=== PATIENT | female | born 1985 ===

== ENCOUNTER 2020-06-12 15:14 | Outpatient (REF) | payer OTHER, SELFPAY ==
[2020-06-12 15:56] LABS: COVID-19 Test Negative (Negative)
== END 2020-06-12 15:15 | disposition home or self-care (01) ==
LOC: HO.LAB 15:14
PROVIDERS: Visit Provider Internal Medicine
DX: Z20.828 Contact with and (suspected) exposure to other viral communicable diseases (principal)
CPT/HCPCS: 87635

== ENCOUNTER 2020-07-17 08:21 | Outpatient (REF) | payer OTHER, SELFPAY ==
[2020-07-17 08:46] LABS: COVID-19 Test Negative (Negative)
== END 2020-07-17 08:22 | disposition home or self-care (01) ==
LOC: HO.LAB 08:21
PROVIDERS: Visit Provider Internal Medicine
DX: Z20.828 Contact with and (suspected) exposure to other viral communicable diseases (principal)
CPT/HCPCS: 87635; C9803

== ENCOUNTER 2020-07-29 08:25 | Outpatient (REF) | payer OTHER, SELFPAY ==
[2020-07-29 08:39] LABS: COVID-19 Test Positive (Negative); IDNOW Serial# 55D5AD1C
== END 2020-07-29 08:26 | disposition home or self-care (01) ==
LOC: HO.EMPCOV 08:25
PROVIDERS: Visit Provider Internal Medicine
DX: Z20.828 Contact with and (suspected) exposure to other viral communicable diseases (principal)
CPT/HCPCS: 87635; C9803

== ENCOUNTER 2020-10-11 09:41 | Outpatient (REF) | payer OTHER, SELFPAY ==
[2020-10-11 11:06] LABS: MANUAL DIFF FLAG NO
[2020-10-11 11:10] LABS: Basophils Percent Auto 0.7 % (0-2); Eosinophils Absolute Auto 0.1 X10*3/uL (0.0-0.4); Eosinophils Percent Auto 1.4 % (0-4); Hematocrit 32.8 % (37-47); Hemoglobin 9.8 g/dl (12.0-16.0); Imm Gran Abs Auto 0.04 X10*3/uL (0.00-0.03); Imm Gran Pct Auto 0.7 % (0.0-0.4); Lymphocytes Absolute Auto 1.3 X10*3/uL (1.2-4.9); Lymphocytes Percent Auto 22.9 % (20-40); Mean Corpuscular HGB Conc 29.9 g/dl (31.0-35.0); Mean Corpuscular Hemoglobin 19.8 pg (27.0-33.0); Mean Corpuscular Volume 66.1 fL (80-98); Mean Platelet Volume 10.7 fL (9.4-12.3); Monocytes Absolute Auto 0.4 X10*3/uL (0.1-1.2); Monocytes Percent Auto 7.7 % (2-11); Neutrophils Absolute Auto 3.8 X10*3/uL (2.0-8.3); Neutrophils Percent Auto 66.6 % (45-73); Platelet Count 326 X10*3/uL (160-400); Red Blood Count 4.96 X10*6/uL (4.20-5.50); Red Cell Distribution Width 17.7 % (11.0-16.0); White Blood Count 5.7 X10*3/uL (4.8-10.8)
[2020-10-11 11:43] LABS: Alanine Aminotransferase 8 U/L (0-31); Albumin Level 4.1 g/dL (3.5-5.0); Alkaline Phosphatase 73 U/L (39-117); Anion Gap 11 (12-20); Aspartate Amino Transferase 10 U/L (5-31); Bilirubin Total 0.7 mg/dL (0.0-1.0); Blood Urea Nitrogen 8 mg/dL (9-16); Calcium 8.5 mg/dL (8.4-10.2); Carbon Dioxide 23 mmol/L (22-29); Chloride 107 mmol/L (96-108); Cholesterol 141 mg/dL; Estimated Glomerular Filt Rate > 60; Glucose Fasting 84 mg/dL (60-99); HDL Cholesterol 41 mg/dL; Iron 23 mcg/dL (30-160); LDL Cholesterol Calculated 85 mg/dl; Percent Iron Saturation 5 % (15-50); Potassium 4.3 mmol/L (3.3-5.1); Rheumatoid Factor < 15.0 IU/mL (<15.0); Sodium 137 mmol/L (135-145); Total Iron Binding Capacity 460 mcg/dL (228-428); Total Protein 7.3 g/dL (6.5-8.0); Triglycerides 76 mg/dL; Unsaturated Iron Binding 437 ug/dL
[2020-10-11 12:04] LABS: Erythrocyte Sedimentation Rate 19 MM/HR (0-20)
[2020-10-11 12:32] LABS: Folate 9.9 ng/mL (> or = 4.0); Vitamin B12 199 pg/mL (200-900)
[2020-10-14 12:56] LABS: Anti Nuclear Antibody Screen NEGATIVE (NEGATIVE)
[2020-10-15 12:42] LABS: Cyclic Citrullinated Peptide 24 UNITS
[2020-10-16 13:47] LABS: Vitamin D 25-OH, D2 <4 ng/mL; Vitamin D 25-OH, D3 7 ng/mL; Vitamin D 25-OH, Total 7 ng/mL (30-100)
[2020-10-16 15:46] LABS: HLA B27 Negative (Negative)
== END 2020-10-11 09:42 | disposition home or self-care (01) ==
LOC: HO.LAB 09:41
PROVIDERS: PCP Internal Medicine; Visit Provider Internal Medicine
DX: D50.0 Iron deficiency anemia secondary to blood loss (chronic) (principal); M54.9 Dorsalgia, unspecified; G89.29 Other chronic pain; E55.9 Vitamin D deficiency, unspecified; E78.5 Hyperlipidemia, unspecified
CPT/HCPCS: 36415; 80053; 80061; 82306; 82607; 82746; 83540; 85025; 85652; 86038; 86039; 86200; 86431; 86812

== ENCOUNTER 2020-10-16 09:22 | Outpatient (REF) | payer OTHER, SELFPAY ==
[2020-10-16 09:31] LABS: Glucose Urine UA NEG (NEG); Leukocyte Esterase Urine 2+ (NEG); Nitrite Urine NEG (NEG); Specific Gravity - Urine 1.025 (1.005-1.025); UACC Culture Trigger YES; Urine Blood 3+ (NEG); Urine Ketones NEG (NEG); Urine Protein 1+ MG/DL (NEG-TRACE)
[2020-10-16 09:33] LABS: Appearance Urine CLOUDY; Color Urine YELLOW
[2020-10-16 09:45] LABS: Bacteria Urine 1+ /LPF; Mucus Urine 2+ /LPF; RBC Urine TNTC /HPF (0); WBC Urine TNTC /HPF (0-4)
== END 2020-10-16 09:23 | disposition home or self-care (01) ==
LOC: HO.LNP 09:22
PROVIDERS: Visit Provider Internal Medicine
DX: R30.0 Dysuria (principal)
CPT/HCPCS: 81001; 81003; 87086

== ENCOUNTER 2020-11-26 09:25 | Outpatient (REF) | payer OTHER, SELFPAY ==
[2020-11-26 10:17] LABS: COVID-19 Test Negative (Negative); IDNOW Serial# 55D5AD1C
== END 2020-11-26 09:26 | disposition home or self-care (01) ==
LOC: HO.EMPCOV 09:25
PROVIDERS: Visit Provider Internal Medicine
DX: Z20.822 Contact with and (suspected) exposure to COVID-19 (principal)
CPT/HCPCS: 36415; 87635; C9803

== ENCOUNTER → 2021-03-07 14:51 | Outpatient (BNVA) | payer OTHER, SELFPAY | PROVIDERS: PCP Internal Medicine; Referring Provider Internal Medicine; Visit Provider Physician Assistant | DX: Z11.0 Encounter for screening for intestinal infectious diseases (principal); E66.9 Obesity, unspecified; Z68.41 Body mass index [BMI] 40.0-44.9, adult | CPT/HCPCS: 99202; 99211 ==

== ENCOUNTER 2021-03-07 16:00 | Outpatient (REF) | payer OTHER, SELFPAY ==
[2021-03-11 13:26] LABS: H Pylori Breath Test DETECTED (NOT DETECTED)
== END 2021-03-07 16:01 | disposition home or self-care (01) ==
LOC: HO.LNP 16:00
PROVIDERS: Visit Provider Physician Assistant
DX: E66.9 Obesity, unspecified (principal)
CPT/HCPCS: 83013

== ENCOUNTER 2021-03-14 10:33 | Outpatient (REF) | payer OTHER, SELFPAY ==
--- NOTE | ~2021-03-14 | XR_ITS ---
EXAMINATION: XR CHEST CLINICAL INFORMATION: Bariatric service evaluation. E66.9 COMPARISON: Chest radiographs 10/08/2019 TECHNIQUE: 2 views of the chest were obtained. FINDINGS: The lungs are clear. The vascularity is normal. The heart is normal in size. There is no airspace consolidation or effusion. The costophrenic sulci are clear. The hilar and mediastinal contours are normal. There are degenerative changes again noted mid thoracic spine with vertebral spurring. XR/XR chest 2V IMPRESSION: Lungs clear.
--- NOTE | 2021-03-14 10:50 | ECG_ITS ---
Test Reason : E66.9 Blood Pressure : / mmHG Vent. Rate : 076 BPM Atrial Rate : 076 BPM P-R Int : 122 ms QRS Dur : 074 ms QT Int : 406 ms P-R-T Axes : 000 -28 -29 degrees QTc Int : 456 ms Normal sinus rhythm Normal ECG When compared with ECG of 08-OCT-2019 15:54, No significant change was found Referred By: Taylor Montano Electronically Signed By:Kyle Elias
[2021-03-14 11:22] LABS: MANUAL DIFF FLAG NO
[2021-03-14 11:25] LABS: Basophils Percent Auto 0.7 % (0-2); Eosinophils Absolute Auto 0.1 X10*3/uL (0.0-0.4); Hematocrit 35.9 % (37-47); Hemoglobin 10.9 g/dl (12.0-16.0); Imm Gran Abs Auto 0.01 X10*3/uL (0.00-0.03); Imm Gran Pct Auto 0.2 % (0.0-0.4); Lymphocytes Absolute Auto 1.4 X10*3/uL (1.2-4.9); Lymphocytes Percent Auto 35.2 % (20-40); Mean Corpuscular HGB Conc 30.4 g/dl (31.0-35.0); Mean Corpuscular Hemoglobin 20.7 pg (27.0-33.0); Mean Corpuscular Volume 68.1 fL (80-98); Mean Platelet Volume 10.9 fL (9.4-12.3); Monocytes Absolute Auto 0.3 X10*3/uL (0.1-1.2); Monocytes Percent Auto 8.5 % (2-11); Neutrophils Absolute Auto 2.1 X10*3/uL (2.0-8.3); Neutrophils Percent Auto 53.4 % (45-73); Platelet Count 324 X10*3/uL (160-400); Red Blood Count 5.27 X10*6/uL (4.20-5.50); Red Cell Distribution Width 17.3 % (11.0-16.0)
[2021-03-14 11:27] LABS: Glucose Urine UA NEG (NEG); Leukocyte Esterase Urine NEG (NEG); Nitrite Urine NEG (NEG); Specific Gravity - Urine 1.025 (1.005-1.025); Urine Blood NEG (NEG); Urine Ketones 15 MG/DL (NEG); Urine Protein NEG (NEG-TRACE)
[2021-03-14 11:32] LABS: Appearance Urine HAZY; Color Urine YELLOW
[2021-03-14 11:39] LABS: Estimated Average Glucose 94 mg/dL; Hemoglobin A1c % 4.9 %
[2021-03-14 11:55] LABS: Alanine Aminotransferase 15 U/L (0-31); Albumin Level 4.2 g/dL (3.5-5.0); Alkaline Phosphatase 68 U/L (39-117); Anion Gap 13 (12-20); Aspartate Amino Transferase 16 U/L (5-31); Bilirubin Total 0.5 mg/dL (0.0-1.0); Blood Urea Nitrogen 15 mg/dL (9-16); C Reactive Protein 0.77 mg/dL (< or = 0.50); Carbon Dioxide 23 mmol/L (22-29); Chloride 108 mmol/L (96-108); Cholesterol 154 mg/dL; Estimated Glomerular Filt Rate > 60; Glucose Random 85 mg/dL (60-115); HDL Cholesterol 41 mg/dL; Iron 16 mcg/dL (30-160); LDL Cholesterol Calculated 100 mg/dl; Sodium 140 mmol/L (135-145); Total Protein 7.3 g/dL (6.5-8.0); Triglycerides 66 mg/dL
[2021-03-14 11:56] LABS: Percent Iron Saturation 3 % (15-50); Total Iron Binding Capacity 460 mcg/dL (228-428); Unsaturated Iron Binding 444 ug/dL
[2021-03-14 12:14] LABS: Ferritin 7 ng/mL (10-122); Vitamin D 25-OH Total 23.1 ng/mL (>30)
[2021-03-14 12:55] LABS: Folate 17.3 ng/mL (> or = 4.0); Vitamin B12 409 pg/mL (200-900)
[2021-03-17 11:36] LABS: Calcium (PTHI) 9.1 mg/dL (8.6-10.2); PTHI 49 pg/mL (14-64)
[2021-03-17 13:26] LABS: Insulin Level Total 13.8 uIU/mL
[2021-03-17 16:47] LABS: Zinc 68 mcg/dL (60-130)
[2021-03-18 19:51] LABS: Vitamin A 26 mcg/dL (38-98)
[2021-03-21 12:46] LABS: Vitamin B1 <6 nmol/L (8-30)
== END 2021-03-14 10:34 | disposition home or self-care (01) ==
LOC: HO.XRAY 10:33
PROVIDERS: PCP Internal Medicine; Visit Provider Physician Assistant
DX: E66.9 Obesity, unspecified (principal); R30.0 Dysuria
CPT/HCPCS: 36415; 71046; 80053; 80061; 81003; 82306; 82607; 82728; 82746; 83036; 83525; 83540; 83970; 84425; 84443; 84590; 84630; 85025; 86140; 93005

== ENCOUNTER → 2021-03-19 08:15 | Outpatient (BNVA) | payer OTHER, SELFPAY | PROVIDERS: PCP Internal Medicine; Visit Provider Dietitian, Registered | DX: E66.01 Morbid (severe) obesity due to excess calories (principal); Z68.41 Body mass index [BMI] 40.0-44.9, adult | CPT/HCPCS: 97802 ==

== ENCOUNTER 2021-04-16 07:58 | Outpatient (REF) | payer OTHER, SELFPAY ==
--- NOTE | ~2021-04-16 | US_ITS ---
EXAMINATION: US COMPLETE ABDOMEN WITH LIVER ELASTOGRAPHY CLINICAL INFORMATION: Obesity. COMPARISON: None. TECHNIQUE: Real-time imaging of the abdominal viscera. Noninvasive ultrasound liver fibrosis assessment is performed using Jerrica ElastPQ point quantification shear wave elastography (pSWE) with a C5-2 MHz transducer. Multiple elastography samples are obtained. FINDINGS: PANCREAS: The visualized pancreatic head and body are normal in appearance. The remainder of the pancreas is obscured from visualization by the overlying bowel gas. ABDOMINAL AORTA: The proximal, middle, and distal aortic segments are normal in caliber. INFERIOR VENA CAVA: Visualized portions are normal. LIVER: The liver demonstrates normal size, contour and echogenicity. No focal lesion or intrahepatic biliary duct dilatation. The right lobe measures 17.1 cm in length. The left lobe measures 11.1 cm in length. Portal flow is normal. Shear wave liver elastography median stiffness is 1.46 m/s (reference: Normal median stiffness is 1.3 m/s or less). IQR/median stiffness to assess sampling precision is 0.38 (reference: Good quality data set is IQR/median stiffness of 0.15 or less). GALLBLADDER: Normal. The gallbladder is physiologically distended without evidence of stones, sludge, polyps, wall thickening or pericholecystic fluid. COMMON BILE DUCT: Normal in caliber measuring 0.3 cm in diameter. RIGHT KIDNEY: Normal. No hydronephrosis. No renal calculi or focal parenchymal lesions. The kidney measures 11.2 cm in maximum dimension. LEFT KIDNEY: Normal. No hydronephrosis. No renal calculi or focal parenchymal lesions. The kidney measures 11.3 cm in maximum dimension. SPLEEN: Normal. The spleen measures 11.0 cm in maximum dimension. FREE FLUID: None. US/US abdomen comp w elastography IMPRESSION: 1. Unremarkable complete abdomen ultrasound. 2. Liver elastography: Median liver stiffness measures 1.46 m/s corresponding to c-ACLD ruled out. REFERENCE: Society of Radiologists in Ultrasound Liver Stiffness Thresholds (2020): LIVER STIFFNESS THRESHOLDS: *Liver Stiffness equal or less than 1.3 m/s: High probability of being normal. *Liver Stiffness less than 1.7 m/s: In the absence of other known clinical signs, rules out compensated advanced chronic liver disease. *Liver Stiffness 1.7-2.1 m/s: Suggestive of compensated advanced chronic liver disease but need further test for confirmation. *Liver Stiffness over 2.1 m/s: Rules in compensated advanced chronic liver disease. *Liver Stiffness over 2.4 m/s: Suggestive of clinically significant portal hypertension. QUALITY OF DATA SET: *IQR/Median value equal or less than 0.15 implies a quality data set. *IQR/Median value over 0.15 implies a poor quality data set. SIGNIFICANT CHANGE FROM PRIOR EXAM: Significant change if liver stiffness measurement is 10% or greater from prior exam. OTHER CONSIDERATIONS: The stage of liver fibrosis may be overestimated in the setting of acute hepatitis, liver inflammation, elevated liver function tests, hepatic vascular congestion, obstructive cholestasis, non-fasting state, and infiltrative diseases such as amyloidosis and lymphoma. In some patients with NAFLD, the liver stiffness thresholds for compensated advanced chronic liver disease may be lower. In causes other than viral hepatitis and NAFLD, liver stiffness thresholds are not well established.
--- NOTE | ~2021-04-16 | FL_ITS ---
EXAMINATION: XR GI SERIES CLINICAL INFORMATION: Obesity. Preop. COMPARISON: None TECHNIQUE: Routine upper GI air-contrast study was performed in upright and lying position. FINDINGS: Following oral administration of thick barium and effervescent granules in upright view, there is normal propagation of bolus from the oral cavity, pharynx, esophagus into stomach without any evidence of obstruction, narrowing or stricture. On placing patient supine and prone lying, there is mild gastroesophageal reflux but no hiatal hernia. The mucosal pattern of the stomach, duodenal bulb and the sweep is normal. The course, caliber and peristalsis of the stomach and the duodenum are normal. FLUOROSCOPY TIME: 1.0 minutes DOSE AREA PRODUCT: 34.744 uGy-m2 (microgray-meter squared) FL/FL upper GI series IMPRESSION: Mild gastroesophageal reflux without hiatal hernia. The rest of the upper GI exam is unremarkable.
== END 2021-04-16 07:59 | disposition home or self-care (01) ==
LOC: HO.US 07:58
PROVIDERS: PCP Internal Medicine; Visit Provider Surgery
DX: Z01.818 Encounter for other preprocedural examination (principal); E66.01 Morbid (severe) obesity due to excess calories; K21.9 Gastro-esophageal reflux disease without esophagitis; Z71.3 Dietary counseling and surveillance
CPT/HCPCS: 74240; 76705; 76981; 97803

== ENCOUNTER 2021-04-18 09:53 | Outpatient (REF) | payer OTHER, SELFPAY ==
[2021-04-19 15:46] LABS: H Pylori Breath Test Negative (Negative)
== END 2021-04-18 09:54 | disposition home or self-care (01) ==
LOC: HO.LNP 09:53
PROVIDERS: PCP Internal Medicine; Visit Provider Physician Assistant
DX: A04.8 Other specified bacterial intestinal infections (principal)
CPT/HCPCS: 83013; 99211

== ENCOUNTER → 2021-04-30 08:10 | Outpatient (BNVA) | payer OTHER, SELFPAY | PROVIDERS: PCP Internal Medicine; Visit Provider Surgery ==

== ENCOUNTER → 2021-05-06 08:22 | Outpatient (BNVA) | payer OTHER, SELFPAY | PROVIDERS: PCP Internal Medicine; Referring Provider Surgery; Visit Provider Dietitian, Registered | DX: E66.01 Morbid (severe) obesity due to excess calories (principal) | CPT/HCPCS: 97803 ==

== ENCOUNTER → 2021-05-16 07:56 | Outpatient (BNVA) | payer OTHER, SELFPAY | PROVIDERS: PCP Internal Medicine; Visit Provider Surgery ==

== ENCOUNTER → 2021-05-23 14:31 | Outpatient (BNVA) | payer OTHER, SELFPAY | PROVIDERS: PCP Student in an Organized Health Care Education/Training Program; Referring Provider Surgery; Visit Provider Dietitian, Registered | DX: E66.01 Morbid (severe) obesity due to excess calories (principal); K21.9 Gastro-esophageal reflux disease without esophagitis; E55.9 Vitamin D deficiency, unspecified; Z68.38 Body mass index [BMI] 38.0-38.9, adult; Z71.3 Dietary counseling and surveillance | CPT/HCPCS: 97803 ==

== ENCOUNTER 2021-05-27 14:23 | Inpatient (IN) | payer OTHER, SELFPAY ==
[2021-05-21 07:01] LABS: MANUAL DIFF FLAG NO
[2021-05-21 07:28] LABS: INTERNATIONAL NORM RATIO 1.1 (0.9-1.1)
[2021-05-21 07:31] LABS: Partial Thromboplastin Time 34.7 SEC (24.1-38.0)
[2021-05-21 07:32] LABS: Basophils Percent Auto 0.5 % (0-2); Eosinophils Absolute Auto 0.1 X10*3/uL (0.0-0.4); Eosinophils Percent Auto 2.3 % (0-4); Hematocrit 36.9 % (37-47); Hemoglobin 11.4 g/dl (12.0-16.0); Imm Gran Abs Auto 0.01 X10*3/uL (0.00-0.03); Imm Gran Pct Auto 0.2 % (0.0-0.4); Lymphocytes Absolute Auto 1.6 X10*3/uL (1.2-4.9); Lymphocytes Percent Auto 26.3 % (20-40); Mean Corpuscular HGB Conc 30.9 g/dl (31.0-35.0); Mean Corpuscular Hemoglobin 21.5 pg (27.0-33.0); Mean Corpuscular Volume 69.6 fL (80-98); Mean Platelet Volume 10.8 fL (9.4-12.3); Monocytes Absolute Auto 0.6 X10*3/uL (0.1-1.2); Monocytes Percent Auto 9.4 % (2-11); Neutrophils Absolute Auto 3.7 X10*3/uL (2.0-8.3); Neutrophils Percent Auto 61.3 % (45-73); Platelet Count 261 X10*3/uL (160-400); Red Cell Distribution Width 17.9 % (11.0-16.0)
[2021-05-21 07:48] LABS: Alanine Aminotransferase 12 U/L (0-31); Albumin Level 4.2 g/dL (3.5-5.0); Alkaline Phosphatase 61 U/L (39-117); Anion Gap 10 (12-20); Aspartate Amino Transferase 17 U/L (5-31); Bilirubin Total 0.5 mg/dL (0.0-1.0); Blood Urea Nitrogen 10 mg/dL (9-16); C Reactive Protein 0.98 mg/dL (< or = 0.50); Calcium 9.4 mg/dL (8.4-10.2); Carbon Dioxide 27 mmol/L (22-29); Chloride 107 mmol/L (96-108); Cholesterol 136 mg/dL; Estimated Glomerular Filt Rate > 60; Glucose Random 88 mg/dL (60-115); HDL Cholesterol 34 mg/dL; LDL Cholesterol Calculated 85 mg/dl; Potassium 4.2 mmol/L (3.3-5.1); Sodium 140 mmol/L (135-145); Total Protein 7.1 g/dL (6.5-8.0); Triglycerides 88 mg/dL
[2021-05-21 08:11] LABS: Insulin 13 uU/mL (2-29); TSH reflex Free T4 1.24 uIU/mL (0.32-4.0)
[2021-05-21 09:45] LABS: Estimated Average Glucose 94 mg/dL; Hemoglobin A1c % 4.9 %
[2021-05-22 11:00] VITALS: BMI 38.9
--- NOTE | 2021-05-27 14:22 | MHC.SHP ---
Pre-Procedural Eval Section A Date of Service: 05/27/21 The patient is an INPATIENT: Yes The History & Physical has been completed within 30 days and I have reviewed it.: Yes Section B Chief Complaint: Morbid Severe Obesity Relevant Family History (Specify if Yes): No Relevant Social History: None Present Medications: None Medical History: No relevant PMH History of Previous Operations: No relevant previous surgery Allergies: Allergies Allergy/AdvReac Type Severity Reaction Status Date / Time No Known Allergies Allergy Verified 05/16/21 08:25 Review of Systems Sugical H&P ROS: Negative: Constitution, Cardiovascular, Respiratory, Neurological, Psychiatric, Hem-Onc, Allergic/Immunologic, Gastrointestinal, Genitourinary, Musculoskeletal, Integumentary, Endocrine and Eyes/Ears/Nose/Throat Exam Surgical H&P Exam: Normal: HEENT, Normal: Heart, Normal: Lungs, Normal: Extremities, Normal: Abdomen, Normal: Skin and Normal: Neurological Plan Diagnosis/Plan: Unchanged I have reviewed the history and physical and performed a pertinent physical examination on my patient. No changes have occurred unless specified.
--- NOTE | 2021-05-28 09:11 | HO.ANESPROP2 ---
Documented by User: Roseann Mackenzie NP 05/28/21 09:12 HPI - Anesthesia Eval Consult details Narrative: 36yo F for Gastrectomy Sleeve, EGD, Poss Diaphragmatic Hernia, Poss Ventral Hernia, Poss open PMFSH Active Problems Active Problems: All Active Problems (Updated 05/22/21 @ 11:01 by Yolande Almendarez RN) Obesity (Acute) H. pylori infection (Acute) Adjustment disorder, unspecified (Acute) Vitamin B1 deficiency (Acute) Vitamin A deficiency (Acute) Vitamin B12 deficiency (Acute) BMI 39.0-39.9,adult (Acute) Morbid obesity (Acute) Urinary tract infection (Acute) Chronic back pain (Acute) URI (upper respiratory infection) (Acute) Hypovitaminosis D (Acute) Iron deficiency anemia (Acute) Past Medical History Medical History Chronic back pain COVID-19 vaccine series completed Hypovitaminosis D Iron deficiency anemia Morbid obesity URI (upper respiratory infection) Urinary tract infection Family History Family History Father Dyslipidemia Gout Mother No problems noted. Sister No problems noted. Brother Stroke Brother No problems noted. Brother No problems noted. Surgical History Surgical History H/O umbilical hernia repair Social History Social History Are you a primary home care manager rn to a significant other at home: No Do you presently have visiting nurse or other home services: No Alcohol intake: never Patient Tobacco Use Status: Never used Tobacco Use of substances other than those prescribed or required for medical reasons: No Have you been hit, kicked, punched, or otherwise hurt by someone within the past year? If so, by whom?: No Are you DNR?: No Advance Directives: No (does not have official HCP in place-states will speak with mother) Advance Directives Information Provided: Yes (informational brochure mailed) Advance Directives on File: No Recently lost weight without trying: No Eating poorly because of decreased appetite: No Nutrition Risks: No Nutritional Risk Patient : No FDLMP: 04/22/21 : No Poor oral hygiene: No Meds Allergies Allergy/AdvReac Type Severity Reaction Status Date / Time No Known Allergies Allergy Verified 05/16/21 08:25 Exam Exam Date and Time: May 28, 2021 0911 Height,Weight and Vital Signs: Height 5 ft 5 in Weight 106.141 kg Pertinent Lab Results Pertinent Lab Results: Laboratory Tests 05/21/21 05/21/21 05/21/21 07:00 07:00 07:00 WBC 6.0 RBC 5.30 Hgb 11.4 L Hct 36.9 L MCV 69.6 L MCH 21.5 L MCHC 30.9 L RDW 17.9 H Plt Count 261 MPV 10.8 Immature Gran % (Auto) 0.2 Neut % (Auto) 61.3 Lymph % (Auto) 26.3 Union % (Auto) 9.4 Eos % (Auto) 2.3 Baso % (Auto) 0.5 Lymph # (Auto) 1.6 Union # (Auto) 0.6 Eos # (Auto) 0.1 Baso # (Auto) 0.0 Abs Immat Gran (auto) 0.01 Absolute Neuts (auto) 3.7 Absolute Nucleated RBC 0.000 Nucleated RBC % (auto) 0.0 PT 13.0 INR 1.1 APTT 34.7 Sodium 140 Potassium 4.2 Chloride 107 Carbon Dioxide 27 Anion Gap 10 L BUN 10 Creatinine 0.76 Estim Creat Clear Calc TNP Estimated GFR > 60 Random Glucose 88 Estimat Average Glucose Hemoglobin A1c % Insulin Level 13 Calcium 9.4 Total Bilirubin 0.5 AST 17 ALT 12 Alkaline Phosphatase 61 C-Reactive Protein 0.98 H Total Protein 7.1 Albumin 4.2 Triglycerides 88 Cholesterol 136 LDL Cholesterol, Calc 85 HDL Cholesterol 34 TSH 1.24 Blood Type Antibody Screen 05/21/21 05/21/21 07:00 07:00 WBC RBC Hgb Hct MCV MCH MCHC RDW Plt Count MPV Immature Gran % (Auto) Neut % (Auto) Lymph % (Auto) Union % (Auto) Eos % (Auto) Baso % (Auto) Lymph # (Auto) Union # (Auto) Eos # (Auto) Baso # (Auto) Abs Immat Gran (auto) Absolute Neuts (auto) Absolute Nucleated RBC Nucleated RBC % (auto) PT INR APTT Sodium Potassium Chloride Carbon Dioxide Anion Gap BUN Creatinine Estim Creat Clear Calc Estimated GFR Random Glucose Estimat Average Glucose 94 Hemoglobin A1c % 4.9 Insulin Level Calcium Total Bilirubin AST ALT Alkaline Phosphatase C-Reactive Protein Total Protein Albumin Triglycerides Cholesterol LDL Cholesterol, Calc HDL Cholesterol TSH Blood Type A Negative Antibody Screen NEGATIVE Narrative Narrative: EKG 03/2021 Vent. Rate : 076 BPM ? ? Atrial Rate : 076 BPM ?? P-R Int : 122 ms? QRS Dur : 074 ms ? ? QT Int : 406 ms ? ? ? P-R-T Axes : 000 -28 -29 degrees ?? QTc Int : 456 ms ? Normal sinus rhythm Normal ECG When compared with ECG of 08-OCT-2019 15:54, No significant change was found Assessment and Plan Assessment Anesthesia Assessment: Chart Reviewed Documented by User: Liliya Lira MD 05/29/21 13:18 [facility] Active Problems Active Problems: All Active Problems (Updated 05/22/21 @ 11:01 by Yolande Almendarez RN) H. pylori infection (Acute) Adjustment disorder, unspecified (Acute) Vitamin B1 deficiency (Acute) Vitamin A deficiency (Acute) Vitamin B12 deficiency (Acute) BMI 39.0-39.9,adult (Acute) Morbid obesity (Acute) Urinary tract infection (Acute) Chronic back pain (Acute) URI (upper respiratory infection) (Acute) Hypovitaminosis D (Acute) Iron deficiency anemia (Acute) Past Medical History Medical History Chronic back pain COVID-19 vaccine series completed Hypovitaminosis D Iron deficiency anemia Morbid obesity URI (upper respiratory infection) Urinary tract infection Family History Family History Father Dyslipidemia Gout Mother No problems noted. Sister No problems noted. Brother Stroke Brother No problems noted. Brother No problems noted. Family history of problems with anesthesia: No Surgical History Surgical History H/O umbilical hernia repair History of Problems with Anesthesia: No Social History Social History Are you a primary home care manager rn to a significant other at home: No Do you presently have visiting nurse or other home services: No Alcohol intake: never Patient Tobacco Use Status: Never used Tobacco Use of substances other than those prescribed or required for medical reasons: No Have you been hit, kicked, punched, or otherwise hurt by someone within the past year? If so, by whom?: No Are you DNR?: No Advance Directives: No (does not have official HCP in place-states will speak with mother) Advance Directives Information Provided: Yes (informational brochure mailed) Advance Directives on File: No Recently lost weight without trying: No Eating poorly because of decreased appetite: No Nutrition Risks: No Nutritional Risk Patient : No FDLMP: 04/22/21 : No Poor oral hygiene: No Meds Allergies Allergy/AdvReac Type Severity Reaction Status Date / Time No Known Allergies Allergy Verified 05/16/21 08:25 Exam Height,Weight and Vital Signs: Height 5 ft 5 in Weight 106.141 kg Vital Signs Temp Pulse Resp BP Pulse Ox 05/29/21 11:26 97.2 F 91 16 129/79 99 Pertinent Lab Results Pertinent Lab Results: Laboratory Tests 05/21/21 05/21/21 05/21/21 07:00 07:00 07:00 WBC 6.0 RBC 5.30 Hgb 11.4 L Hct 36.9 L MCV 69.6 L MCH 21.5 L MCHC 30.9 L RDW 17.9 H Plt Count 261 MPV 10.8 Immature Gran % (Auto) 0.2 Neut % (Auto) 61.3 Lymph % (Auto) 26.3 Union % (Auto) 9.4 Eos % (Auto) 2.3 Baso % (Auto) 0.5 Lymph # (Auto) 1.6 Union # (Auto) 0.6 Eos # (Auto) 0.1 Baso # (Auto) 0.0 Abs Immat Gran (auto) 0.01 Absolute Neuts (auto) 3.7 Absolute Nucleated RBC 0.000 Nucleated RBC % (auto) 0.0 PT 13.0 INR 1.1 APTT 34.7 Sodium 140 Potassium 4.2 Chloride 107 Carbon Dioxide 27 Anion Gap 10 L BUN 10 Creatinine 0.76 Estim Creat Clear Calc TNP Estimated GFR > 60 Random Glucose 88 Estimat Average Glucose Hemoglobin A1c % Insulin Level 13 Calcium 9.4 Total Bilirubin 0.5 AST 17 ALT 12 Alkaline Phosphatase 61 C-Reactive Protein 0.98 H Total Protein 7.1 Albumin 4.2 Triglycerides 88 Cholesterol 136 LDL Cholesterol, Calc 85 HDL Cholesterol 34 TSH 1.24 Blood Type Antibody Screen 05/21/21 05/21/21 07:00 07:00 WBC RBC Hgb Hct MCV MCH MCHC RDW Plt Count MPV Immature Gran % (Auto) Neut % (Auto) Lymph % (Auto) Union % (Auto) Eos % (Auto) Baso % (Auto) Lymph # (Auto) Union # (Auto) Eos # (Auto) Baso # (Auto) Abs Immat Gran (auto) Absolute Neuts (auto) Absolute Nucleated RBC Nucleated RBC % (auto) PT INR APTT Sodium Potassium Chloride Carbon Dioxide Anion Gap BUN Creatinine Estim Creat Clear Calc Estimated GFR Random Glucose Estimat Average Glucose 94 Hemoglobin A1c % 4.9 Insulin Level Calcium Total Bilirubin AST ALT Alkaline Phosphatase C-Reactive Protein Total Protein Albumin Triglycerides Cholesterol LDL Cholesterol, Calc HDL Cholesterol TSH Blood Type A Negative Antibody Screen NEGATIVE Laboratory Results - last 24 hr 05/29/21 05/29/21 11:16 11:16 Urine Test NEGATIVE COVID-19 ([facility]) Negative COVID-19 Clin Com See Note Airway Mallampati Class: II TM Dist: >3cm Neck ROM: Full Loose/Missing/Broken Teeth: No Heart: RRR Lungs: CTAB Assessment and Plan Assessment Anesthesia Assessment: Anesthesia Plan Discussed Final Anesthetic Review Family History of Problems with Anesthesia: No History of Problems with Anesthesia: No NPO: Yes ASA Class: III Final Preanesthetic Review: No Changes in Pt Med Stat, Meds/Allgs Chart Reviewed, Consent Obtained/Reviewed and Anes Risks/Benef Reviewed Patient Risk: Intermediate Procedure Risk: Intermediate Assessment/Block/Sedation in SS: Assess/Block/Sedation- Anesthetic Plan Anesthetic Plan: GA Disposition: Standard PACU
[2021-05-29] VITALS (13 sets, daily range): BP systolic 129–152; BP diastolic 66–97; PULSE 73–97; RESP 16–19; TEMP 36.1–36.6; O2SAT 97–100
[2021-05-29 11:33] LABS: UPreg QC Valid YES; Urine Pregnancy NEGATIVE (NEGATIVE)
[2021-05-29] MEDS: Lactated Ringers 1,000 ML 999 ML IV (11:48)
[2021-05-29 11:50] LABS: IDNOW Serial# 9DD0AD1C
[2021-05-29 11:51] LABS: COVID-19 Test Negative (Negative)
[2021-05-29] MEDS: Lactated Ringers 1,000 ML 100 ML IVCONT ×2 (12:32→16:56)
--- NOTE | 2021-05-29 13:58 | PM.PNGS ---
Subjective Subjective Date of Service: 05/30/21 Interval history: Patient has mild incisional pain, but was able to ambulate and use the incentive spirometer. She is tolerating phase 1 bariatric diet Physical Exam Vital Signs: Vital Signs: Last Vital Signs Temp 97.2 F 05/29/21 11:26 Pulse 91 05/29/21 11:26 Resp 16 05/29/21 11:26 BP 129/79 05/29/21 11:26 Pulse Ox 99 05/29/21 11:26 Body Mass Index 38.9 GI: Inspection: Yes normal to inspection and Yes incision (clean, dry and intact) Extrem: Right lower extremity: normal to inspection (no calf tenderness) Left lower extremity: normal to inspection (no calf tenderness) Procedures Date of Service Date of Service: 05/30/21 Progress Note: A&P Assessment and plan (1) Obesity: Status: Acute Assessment and Plan: s/p laparoscopic sleeve gastrectomy, lysis of adhesions repair of diaphragmatic hernia, and gastropexy Doing well Check am labs. If OK, will discharge home? (2) BMI 39.0-39.9,adult: Status: Acute (3) GERD (gastroesophageal reflux disease): Status: Acute (4) Liver fibrosis: Status: Acute (5) Back pain: Status: Acute (6) S/P laparoscopic sleeve gastrectomy: Status: Acute Fall Risk Details Current Medications: Current Medications Fentanyl (Fentanyl Citrate/Pf 100 Mcg/2 Ml Vial) 25 mcg IVPUSH Q5M PRN; Protocol PRN Reason: Pain, Moderate (Pain Scale 4-6 Hydromorphone HCl (Hydromorphone Hcl 0.5 Mg/0.5 Ml Syringe) 0.25 mg IVPUSH Q5M PRN; Protocol PRN Reason: Pain, Severe (Pain Scale 7-10) Lactated Ringer's (Lr) 1,000 mls @ 100 mls/hr IVCONT .Q10H NHI Last Admin: 05/29/21 12:32 Dose: 100 mls/hr Documented by: Promethazine HCl 6.25 mg/ (Sodium Chloride) 50.25 mls @ 201 mls/hr IV ONCE PRN PRN Reason: Nausea and Vomiting Ondansetron HCl (Ondansetron Hcl 4 Mg/2 Ml Vial) 4 mg IVPUSH ONCE PRN PRN Reason: Nausea and Vomiting Time Spent With Patient Time: Total time spent is greater than 50% in coordination of care (as documented) at patient's floor/unit and/or counseling patient: Time with patient: less than 15 minutes Quality Stroke Does the patient have a stroke diagnosis?: No VTE Prior VTE?: No VTE Risk Level:: Surgical - moderate VTE Device Contraindication: N/A - Device Ordered VTE Drug Contraindication: Treatment Not Indicated
[2021-05-29] MEDS: ceFAZolin Sodium/Dextrose,Iso 2 GM/50 ML PIGGYBACK IV ×2 (14:01→20:04)
--- NOTE | 2021-05-29 14:03 | PM.OP ---
Brief Operative Note Date of Service: 05/29/21 Pre-op diagnosis: Severe obesity and comorbdities (see below) Post-op diagnosis: same (abdominal adhesions) Procedure: INITIAL PATIENT BMI ON PRESENTATION AT OUR OFFICE: 43.1 kg/m2 LAST BMI BEFORE SURGERY: 39 kg/m2 COMORBIDITIES: GERD, back pain, liver fibrosis The patient participated in an intensive weekly lifestyle ?intervention and exercise program during which the patient ?has lost between the initial office visit and the last preoperative visit 24.8 lbs, or9.58 % of initial actual body weight. The patient met the BMI-criteria for bariatric surgery based on the BMI on initial presentation. The patient should not be penalized for achieving such weight loss because ?it is not sustainable long-term without surgical intervention and it was achieved in preparation for bariatric surgery ?under my direction and based on my published research ([email or web address]) ?that a 10% preoperative weight loss improves long-term weight loss after surgery and reduces perioperative complications.? Insurance carriers such as [facility] have endorsed my recommendations ?and have included in their policies criteria to include a 10% preoperative weight loss requirement. PROCEDURE: Esophago-gastroscopy, laparoscopic lysis of adhesions, laparoscopic sleeve gastrectomy and laparoscopic gastropexy INDICATIONS: This is a 36 year-old female who was electively scheduled for laparoscopic, possibly open sleeve gastrectomy. The risks and complications of the procedure were discussed with the patient in advance, particularly the possibility of ; pulmonary embolism; staple line leak; bleeding; GERD; cardiac, pulmonary, or renal complications; as well as long-term problems such as insufficient weight loss, vitamin deficiency, strictures, or ulcers. The patient understood all the risks, and was in agreement to proceed with surgery. DESCRIPTION OF PROCEDURE: After informed consent was obtained from the patient, the patient was given preoperative antibiotics, and was transferred to the operating room. After successful induction of general anesthesia, pneumatic compressive devices were placed on both lower extremities. An upper endoscopy was performed next. The oropharynx and esophagus appeared to be within normal limits. There was no diaphragmatic hernia present consistent with the findings of the preoperative upper GI. The stomach was entered. Then after all fluid and air were suctioned and the stomach was fully decompressed, the scope was withdrawn and secured in the mid esophagus. The patient was then prepped and draped in the usual sterile manner, and abdominal access was established at the right upper quadrant with the Albert technique. A 12 mm blunt port was inserted, and the abdomen was insufflated with CO2 to a pressure of 15 mmHg. Under direct visualization, additional ports were placed, specifically two 5 mm Versi-step ports to the left upper quadrant, and a 5 mm Versi-Step port to the right upper quadrant. 1% lidocaine plain was used to infiltrate all port sites as well as all fascia defects. Using the EndoClose suture passer device, we placed a #1 Polysorb tie across the falciform ligament in order to retract it up against the abdominal wall and prevent injury of the ligament with our instruments during the procedure. Following that, the patient was placed in a steep reverse Trendelenburg position. An additional 5 mm port was placed to the right flank for the Mediflex retractor that was used to retract the left lobe of the liver. The gastro-esophageal fat pad was opened with the ultrasonic device (Thunderbeat, Olympus) and the anterior esophagus and hiatus were exposed. The angle of His was opened with the ultrasonic device the fundus of the stomach from any diaphragmatic and splenic attachments. I then opened the gastrocolic ligament between the transverse colon and the greater curvature of the stomach with the ultrasonic device to enter the lesser sac and facilitate the ligation of the short gastric vessels. I started at a mid-point along the greater curvature and using the Thunderbeat, all short gastric vessels were divided all the way to the angle of His until the left kobi was completely dissected at its entirety. I then divided the gastro-colic ligament distally to a distance of about 3-4 cm proximal to the esophagus. There were extensive congenital adhesions between the pancreas and posterior gastric wall. Those were lysed completely with the ultrasonic device. Adhesiolysis took approximately 45 min to complete. The stomach was then divided transversely with one Endo RADHA-45 purple and four RADHA-60 articulating orange loads using the AEON stapler and loads. Every effort was made that the gastric sleeve had a tubular shape and an even caliber throughout. Once the sleeve resection was completed, the staple line of the gastric sleeve was reinforced with Hemoclips. The resected stomach was retrieved without difficulty from the Albert port. A gastropexy was then performed in order to prevent postoperative GERD and partial gastric volvulus. Several interrupted 2.0 Surgidac sutures were placed between the sleeve's staple line and the previously divided greater omentum and gastro-colic ligament using the Endo-Stitch device. ?An upper endoscopy was performed. There was no narrowing at the GE junction. The scope was easily advanced all the way to the pylorus which was clearly visualized. There was no narrowing anywhere and the sleeve's caliber was even throughout. The sleeve's staple line was inspected and there was no evidence of ischemia, bleeding or dehiscence. At that point the gastroscope was withdrawn from the patient?s mouth while we were decompressing the bowel and the stomach from any remaining air. I looked into the lesser sac to see how the sleeve was situating and it was situating well. There was no bleeding from the staple line, spleen, or short gastric vessels. The Mediflex retractor was removed, and the undersurface of the liver was inspected and there was no bleeding. The patient was placed in supine position. I closed the fascial defect of the 12 mm port site with a figure of eight #1 Polysorb suture. Then 100 cc 0.25 % Marcaine plain with 10 mg of Dexamethasone were used to infiltrate the fascial closure as well as all skin incisions. At this point, the abdomen was deflated, all ports were removed under direct vision, and no bleeding was noted from any of the port sites. The skin incisions were irrigated with saline and were closed with 4-0 absorbable monofilament sutures. Steri-Strips and OpSites were used to cover all incisions. The patient was extubated and was transferred in stable condition to the recovery room for further care. I was present and performed all rousseau parts of the procedure. Ms. Montano was the rn first assist. There were no residents to assist with this case. Christopher Lewis MD, PhD, FACS ReplyForward Surgeon: Aureliano Lewis MD Anesthesia: GETA, local and other (TAP blocl) Was an Mining Captain used for this Procedure?: No Mining Captain: Taylor Montano Estimated blood loss (mL): 10 IV fluids (mL): 2,500 Urine output (mL): 0 (No Andrews to record) Pathology: other (stomach) Condition: stable Disposition: PACU
--- NOTE | 2021-05-29 15:58 | P.DS_ITS ---
DS: Providers Provider Date of Service: 05/30/21 Date of admission: 05/27/21 14:23 Primary care physician: Rafy Freeman MD DS: Diagnosis Discharge Diagnosis (1) Obesity: Status: Acute (2) BMI 39.0-39.9,adult: Status: Acute (3) GERD (gastroesophageal reflux disease): Status: Acute (4) Liver fibrosis: Status: Acute (5) Back pain: Status: Acute DS: Summary Hospital Course Hospital Course: ADMITTING DIAGNOSIS: morbid obesity, chronic back pain DISCHARGE DIAGNOSIS: same, s/p laparoscopic sleeve gastrectomy PAST SURGICAL HISTORY: umbillical hernia repair PROCEDURE: upper endoscopy, laparoscopic sleeve gastrectomy DISCHARGE SUMMARY: History of Present Illness: The patient is a 36 year-old woman with a BMI of 43.1 kg/m2 and associated co- morbidities as described above. The patient had extensive work-up,lost 24.8 lbs preoperatively and was electively scheduled for laparoscopic, possible open sleeve gastrectomy and gastropexy. Risks and complications of the surgery were discussed with the patient in advance, particularly the possibility of , pulmonary embolism, anastomotic leak, bleeding, bowel injury, GERD, cardiac, renal or pulmonary complications. The patient understood all the risks and was in agreement with the surgical plan. Hospital Course: The patient underwent an uneventful laparoscopic sleeve gastrectomy with gastropexy on the day of admission. Postoperatively, the patient was transferred to the surgical floor. The patient received IV Acetaminophen and IV dilaudid for pain control. Patient was started on bariatric phase 1 diet POD #0. On postoperative day one, the patient was feeling well without nausea, vomiting, fevers, or tachycardia. The patient had some mild incisional pain and the abdomen was soft. On the morning of postoperative day one, the patient was continued on 1 ounce of water or ice every half hour. During the day, the patient did fairly well, having some incisional pain, but able to ambulate adequately and to tolerate liquids well. Since the patient is doing well, we decided that the patient was ready to be discharged. The patient was given instructions to follow-up with me next week and to call my office for any fever over 101, persistent abdominal pain, nausea, vomiting, GERD, symptoms of DVT such as calf tenderness, or leg swelling, or pulmonary embolism such as chest pain or shortness of breath. The patient was also instructed to drink 40-60 ounces of liquids per day using the 1-ounce cups. The patient had been given prescriptions for Tylenol for pain, Zofran prn for nausea, and pantoprazole and carafate previously. The patient was encouraged to ambulate and use the incentive spirometer. The patient was allowed to shower, but no baths, and encouraged to stay active at home. All of these instructions were given to the patient personally. All questions were answered and the patient understood all instructions, the instructions were also given to the patient in print. Time Spent with Patient Time attestation: Total time spent providing and/or coordinating discharge services: Discharge coordination time: Less than 30 minutes Quality: Stroke Does the patient have a stroke diagnosis?: No Physical Exam Vital Signs: Vital Signs: Last Vital Signs Temp 97.2 F 05/29/21 11:26 Pulse 91 05/29/21 11:26 Resp 16 05/29/21 11:26 BP 129/79 05/29/21 11:26 Pulse Ox 99 05/29/21 11:26 Body Mass Index 38.9 DS: Data Data Completed and Pending Pending studies at discharge: Pending at discharge 05/29/21 15:11 Surgical [PTH] Routine Labs on day of discharge: Laboratory Results - last 24 hr 05/29/21 05/29/21 11:16 11:16 Urine Test NEGATIVE COVID-19 ([facility]) Negative COVID-19 Clin Com See Note Discharge Plan Discharge Anticipated Discharge Date/Time: 05/30/21 10:56 Patient Disposition: Home, Self-Care Discharge Diagnosis: s/p sleeve gastrectomy Referrals: Rafy Freeman MD [Primary Care Provider] - 1 Week Discharge Medications: Continued oxycodone-acetaminophen 5-325 mg tablet 1 tab PO Q6H PRN (Reason: pain) 30 Days Qty: 120 RF: 0 pantoprazole 40 mg tablet,delayed release (DR/EC) 40 mg PO DAILY Qty: 30 RF: 2 sucralfate 100 mg/mL suspension 10 ml PO BID Qty: 400 RF: 2 ondansetron HCl [Zofran] 4 mg tablet 4 mg PO Q12H Qty: 20 RF: 0 Discontinued polyethylene glycol 3350 [Miralax] 17 gram powder in packet 17 g PO DAILY Qty: 14 RF: 0 Discharge Orders: Discharge Order (Routine); Ordered 05/30/21 Ordered By: Aureliano Lewis Diet: other Activity on Discharge: No heavy lifting Stand Alone Forms: Patient Portal Discharge page Care Plan Goals: weight loss Health Concerns: morbid obesity Plan of Treatment: No tub baths, sex or returning to work until discussed at first post op appointment. No exercise, alcohol, tobacco or illegal drug use. Continue to use incentive spirometer hourly while awake. Walk in home for 5- 10 minutes every 2 hours during the first week. Continue phase 1 diet today and start phase 2 diet tomorrow morning. Follow all instructions in the bariatric handbook and call with any questions. 1. Please call your doctor or come back to the emergency room should any new symptoms arise. 2. You will receive a courtesy call from [facility] 24-48 hours afte r discharge. 3. Activity: abstain from alcohol, practice limited stair climbing, no bending, no driving, no exercise, no illicit substances, no lifting, no sex, no tub bath, no work. 4. Diet: continue as discussed with Dr. Lewis. 5. Dressing Change/Wound Care: Your incision is covered by surgical glue. If the area is tender, you may apply an ice pack for short intervals (no more than 20 minutes on, followed by at least 20 minutes off). Do not apply heat. Do not use creams, lotions, or topical antibiotics unless instructed to do so by your surgeon. These can cause infection or allergic reaction. 6. Call your doctor if: - Your temperature exceeds 101.5 F - You experience excessive pain or swelling - You have an unexpected reaction to medication - You have excessive bleeding - You experience continued vomiting/nausea - Your incision begins to separate - Your incision shows signs of infection such as increased redness, swelling, excessive pain, heat, or drainage (light blood or clear fluid is normal) 7. General instructions: No lifting greater than 5 lbs for the next 4 weeks[address] driving within 24 hours of taking narcotic pain medications. If you do not move your bowels in the next 2 days, please take milk of magnesia over the counter. Please follow the post op diet and do not advance your diet until you are seen in the office in about 2 weeks. Please walk around your home every hour or two to prevent blood clots from forming in your legs. You do not need to wake from sleeping to walk. Please sleep in a bed or couch to prevent kinking at the hips and knees. Please take your incentive spirometer (your lung candy forming machine operator) home with you and use it for the next few days to prevent pneumonias. You may shower, no hot tubs, baths or swimming pools. Please call the office with any questions or concerns such as increasing abdominal pain, fever, chills, shortness of breath, chest pain, leg pain or swelling, or redness or drainage from your incisions. Please stay on stage 3 diet which includes sugar free clear liquids such as ice pops and jello and broth and crystal light. Avoid all carbonation. Please drink 3 protein shakes with at least 25-30 grams of protein daily or 3 of the Celebrate 4:1 shakes which can be purchased in our office. The Celebrate shakes have all of the bariatric vitamins you need if you consume these shakes. If you are drinking other protein shakes, you will need to purchase the Celebrate multivitamins and calcium that we provide in the office (they will provide all the vitamins you need). Please make sure you are consuming at least 40-60 ounces of water in addition to your 3 protein shakes daily. Do not hesitate to contact the office with any questions at . The patient's medical history has been reviewed and they are considered low risk for post op DVT and therefore DVT prophylaxis is not considered necessary. Travel after surgery was reviewed. The patient has not disclosed any travel plans during the first 30 days after surgery and they have been advised that within the first 30 days after surgery any bus, plane, train or car travel over 2 hours in duration is contraindicated due to the possibility of developing b lood clots from immobility. Any travel, needs to include periods of ambulation of 10 minutes in duration every 2 hours. The patient was instructed to discuss any plans for travel during this period with their bariatric surgeon. Assessment: stable s/p sleeve gastrectomy
[2021-05-29] MEDS: ondansetron HCL 4 MG/2 ML VIAL IVPUSH ×2 (16:01→18:05)
[2021-05-29] MEDS: Metoclopramide HCl 10 MG/2 ML VIAL IVPUSH (16:03)
[2021-05-29] MEDS: Famotidine/PF 20 MG/2 ML VIAL IVPUSH ×2 (16:07→21:21)
[2021-05-29 16:33] LABS: Hematocrit 35.6 % (37-47); Hemoglobin 11.1 g/dl (12.0-16.0)
[2021-05-29 16:45] LABS: Anion Gap 20 (12-20); Blood Urea Nitrogen 5 mg/dL (9-16); Calcium 8.1 mg/dL (8.4-10.2); Carbon Dioxide 14 mmol/L (22-29); Chloride 109 mmol/L (96-108); Creatinine Clr Calc Pharmacy 135.1; Estimated Glomerular Filt Rate > 60; Glucose Random 90 mg/dL (60-115); Potassium 3.8 mmol/L (3.3-5.1); Sodium 139 mmol/L (135-145)
[2021-05-30] VITALS: BP 133/68; PULSE 69; RESP 17; TEMP 36.3; O2SAT 98
[2021-05-30] MEDS: 0.9 % Sodium Chloride Flush 3 ML SYRINGE IVFLUSH (00:06)
[2021-05-30] MEDS: ondansetron HCL 4 MG/2 ML VIAL IVPUSH ×2 (02:09→08:13)
[2021-05-30] MEDS: Lactated Ringers 1,000 ML 100 ML IVCONT (03:01)
[2021-05-30 03:26] VITALS: RESP 18
[2021-05-30 04:00] VITALS: BP 127/67; PULSE 82; RESP 17; TEMP 36.6; O2SAT 99
[2021-05-30 05:17] LABS: MANUAL DIFF FLAG NO
[2021-05-30 05:20] LABS: Hematocrit 35.8 % (37-47); Hemoglobin 11.1 g/dl (12.0-16.0); Imm Gran Abs Auto 0.01 X10*3/uL (0.00-0.03); Imm Gran Pct Auto 0.2 % (0.0-0.4); Lymphocytes Absolute Auto 0.5 X10*3/uL (1.2-4.9); Lymphocytes Percent Auto 8.2 % (20-40); Mean Corpuscular Hemoglobin 21.8 pg (27.0-33.0); Mean Corpuscular Volume 70.3 fL (80-98); Mean Platelet Volume 11.5 fL (9.4-12.3); Monocytes Absolute Auto 0.1 X10*3/uL (0.1-1.2); Monocytes Percent Auto 2.2 % (2-11); Neutrophils Absolute Auto 4.9 X10*3/uL (2.0-8.3); Neutrophils Percent Auto 89.4 % (45-73); Platelet Count 253 X10*3/uL (160-400); Red Blood Count 5.09 X10*6/uL (4.20-5.50); White Blood Count 5.5 X10*3/uL (4.8-10.8)
[2021-05-30 05:39] LABS: Anion Gap 17 (12-20); Blood Urea Nitrogen 4 mg/dL (9-16); Calcium 8.7 mg/dL (8.4-10.2); Carbon Dioxide 14 mmol/L (22-29); Chloride 109 mmol/L (96-108); Creatinine Clr Calc Pharmacy 127.8; Estimated Glomerular Filt Rate > 60; Glucose Random 120 mg/dL (60-115); Potassium 4.4 mmol/L (3.3-5.1); Sodium 136 mmol/L (135-145)
[2021-05-30 07:36] VITALS: BP 111/62; PULSE 63; RESP 18; TEMP 36.6; O2SAT 98
[2021-05-30] MEDS: Famotidine/PF 20 MG/2 ML VIAL IVPUSH (08:13)
--- NOTE | 2021-05-30 09:28 | MHC.CM.PN ---
CM MET WITH PT WHO REPORTS SHE LIVES IN AN APARTMENT WITH HER S/O AND THREE CHILDREN (17, 13, AND 2 YO). PT REPORTS SHE WORKS AT [employer] [facility] [place] AND IS FULLY INDEPENDENT PT HAS NO SERVICES AND NO DME PT DID NOT WANT TO COMPLETE A HCP TODAY BUT DID TAKE A BLANK ONE TO CONSIDER AT A LATER TIME. PT CONFIRMS HER PCP LISTED, [facility], IS ACCURATE. PT WILL DC HOME TODAY WITH NO SERVICES PT WILL SELF ARRANGE TRANSPORT
--- NOTE | 2021-05-30 09:49 | HO.POSTANES ---
Post Anesthesia Evaluation Post Anesthesia Evaluation Vital Signs: Vital Signs Temp Pulse Resp BP Pulse Ox 05/30/21 07:36 97.8 F 63 18 111/62 98 05/30/21 04:00 97.8 F 82 17 127/67 99 05/30/21 03:26 18 05/30/21 00:00 97.4 F 69 17 133/68 98 Anesthesia: General Endotracheal-GETA Mental Status: Awake Pain Control: Satisfactory Nausea/Vomiting: None Hydration: Adequate Anesthesia-Related Issues: No Anes. Related Issues
== END 2021-05-30 10:24 | disposition home or self-care (01) | DRG 403 ==
LOC: HO.SSSA 05-29 15:58 → HO.S3 05-29 16:46
PROVIDERS: Nurse Practitioner; Physician Assistant; Admitting Provider Surgery; PCP Student in an Organized Health Care Education/Training Program; Visit Provider Surgery
PROC: (CPT 43845; principal; 2021-05-29 12:50)
DX: E66.01 Morbid (severe) obesity due to excess calories (principal); K74.00 Hepatic fibrosis, unspecified; G89.29 Other chronic pain; K21.9 Gastro-esophageal reflux disease without esophagitis; K66.0 Peritoneal adhesions (postprocedural) (postinfection); Z68.39 Body mass index [BMI] 39.0-39.9, adult; Z20.822 Contact with and (suspected) exposure to COVID-19; Z79.899 Other long term (current) drug therapy
CPT/HCPCS: 36415; 80048; 80053; 80061; 81025; 83036; 83525; 84443; 85014; 85018; 85025; 85610; 85730; 86140; 86850; 86900; 86901; 87635; 88307; 88342; 99024; A4649; J0131; J0690; J1100; J1170; J2250; J2370; J2405; J2550; J2765; J3010

== ENCOUNTER → 2021-06-06 07:27 | Outpatient (BNVA) | payer OTHER, SELFPAY | PROVIDERS: PCP Internal Medicine; Referring Provider Internal Medicine; Visit Provider Surgery | DX: E66.9 Obesity, unspecified (principal); Z68.36 Body mass index [BMI] 36.0-36.9, adult; Z98.84 Bariatric surgery status | CPT/HCPCS: 99212 ==

== ENCOUNTER → 2021-06-26 08:14 | Outpatient (BNVA) | payer OTHER, SELFPAY | PROVIDERS: PCP Internal Medicine; Visit Provider Physician Assistant Surgical | DX: E66.9 Obesity, unspecified (principal); Z68.35 Body mass index [BMI] 35.0-35.9, adult | CPT/HCPCS: 99212 ==

== ENCOUNTER → 2021-07-24 08:10 | Outpatient (BNVA) | payer OTHER, SELFPAY | PROVIDERS: PCP Internal Medicine; Visit Provider Physician Assistant Surgical | DX: E66.9 Obesity, unspecified (principal); Z68.33 Body mass index [BMI] 33.0-33.9, adult | CPT/HCPCS: 99212 ==

== ENCOUNTER → 2021-08-20 08:12 | Outpatient (BNVA) | payer OTHER, SELFPAY | PROVIDERS: PCP Internal Medicine; Visit Provider Physician Assistant Surgical | DX: E66.9 Obesity, unspecified (principal) | CPT/HCPCS: 99212 ==

== ENCOUNTER 2021-09-08 17:11 | Outpatient (REF) | payer OTHER, SELFPAY | END 2021-09-08 17:12 | disposition home or self-care (01) | LOC: HO.LAB 17:11 | PROVIDERS: PCP Internal Medicine; Visit Provider Internal Medicine | DX: Z13.89 Encounter for screening for other disorder (principal) ==

== ENCOUNTER 2021-09-08 17:27 | Emergency (ER) | payer OTHER, SELFPAY ==
[2021-09-08 17:42] VITALS: BP 141/67; PULSE 60; RESP 16; TEMP 37.4; O2SAT 100; BMI 32.1
--- NOTE | 2021-09-08 17:46 | ED_ITS ---
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 where she accidentally stuck the needle into her left palm through a glove with no bleeding Related Data Previous Rx's Medication Instructions Recorded pantoprazole 40 mg tablet,delayed 40 mg PO DAILY #30 tab 05/16/21 release sucralfate 100 mg/mL oral 10 ml PO BID #400 ml 05/16/21 suspension oxycodone-acetaminophen 5 mg-325 1 tab PO Q6H PRN 30 Days #120 tab 09/01/21 mg tablet Allergies Allergy/AdvReac Type Severity Reaction Status Date / Time No Known Allergies Allergy Verified 06/06/21 07:37 Review of Systems Verdana 4l Review of Systems: Verdana 4d Positive for Verdana 4d needlestick Negative no active bleeding no numbness no weakness no tingling no other injury Verdana 4d Yes all other systems are reviewed and are negative PMFSH Past Medical History Source: nursing notes reviewed Medical History (Updated 09/08/21 @ 18:24 by NIKO Anglin) Adjustment disorder, unspecified Back pain BMI 39.0-39.9,adult Chronic back pain COVID-19 vaccine series completed GERD (gastroesophageal reflux disease) H. pylori infection Hypovitaminosis D Iron deficiency anemia Liver fibrosis Morbid obesity Needle stick, hypodermic, accidental URI (upper respiratory infection) Urinary tract infection Vitamin A deficiency Vitamin B1 deficiency Vitamin B12 deficiency Surgical History (Updated 05/29/21 @ 15:57 by Taylor Montano PA-C) H/O umbilical hernia repair Family History Family History Father Dyslipidemia Gout Mother No problems noted. Sister No problems noted. Brother Stroke Brother No problems noted. Brother No problems noted. Social History Social History Are you a primary gericare aide teacher to a significant other at home: No Do you presently have visiting nurse or other home services: No Alcohol intake: never Patient Tobacco Use Status: Never used Tobacco Advance Directives: No Advance Directives Information Provided: No Patient : No service: No Current occupational status: employed Physical Exam Verdana 4l Vital Signs: Verdana 4d Verdana 4d Vital Signs: Verdana 4d Verdana 4Bd Last Vital Signs Verdana 4d Mysql Database Developer New 4d Mysql Database Developer New 4d Temp 99.4 F 09/08/21 17:42 Mysql Database Developer New 4d Pulse 60 09/08/21 17:42 Mysql Database Developer New 4d Resp 16 09/08/21 17:42 BP 141/67 H 09/08/21 17:42 Pulse Ox 100 09/08/21 17:42 BMI result Body Mass Index 32.1 General appearance no acute distress Head is normocephalic atraumatic Neck is supple Respiratory no distress Extremities full range of motion x4 The left hand there was no visible puncture wound on the hand no bleeding and hand is neurovascular intact Course Course Course Narrative: I called the source patient who denied any history of IV drug abuse no history of HIV or hepatitis no high-risk behaviors next he does admit to drinking frequently but has never used IV drugs or engaged in promiscuous sexual activity It was explained to the patient that this is a very very low risk stick but nothing brings risk to 0 She thought about it and wanted to take prophylaxis and she is advised that we will start prophylaxis and she should do her best to get the source patient return to the primary clinic for HIV and hepatitis testing Medical Decision Making Lab Data Result diagrams: 09/08/21 18:12 09/08/21 18:12 Labs: Lab Results 09/08/21 09/08/21 09/08/21 Range/Units 18:12 18:12 18:12 WBC 6.5 (4.8-10.8) X10*3/uL RBC 4.74 (4.20-5.50) X10*6/uL Hgb 11.0 L (12.0-16.0) g/dl Hct 35.3 L (37.0-47.0) % MCV 74.5 L (80.0-98.0) fL MCH 23.2 L (27.0-33.0) pg MCHC 31.2 (31.0-35.0) g/dl RDW 16.6 H (11.0-16.0) % Plt Count 223 (160-400) X10*3/uL MPV 11.3 (9.4-12.3) fL Immature Gran % (Auto) 0.3 (0.0-0.4) % Neut % (Auto) 59.5 (45-73) % Lymph % (Auto) 30.2 (20-40) % Humphreys % (Auto) 7.2 (2-11) % Eos % (Auto) 2.5 (0-4) % Baso % (Auto) 0.3 (0-2) % Lymph # (Auto) 2.0 (1.2-4.9) X10*3/uL Humphreys # (Auto) 0.5 (0.1-1.2) X10*3/uL Eos # (Auto) 0.2 (0.0-0.4) X10*3/uL Baso # (Auto) 0.0 (0.0-0.2) X10*3/uL Abs Immat Gran (auto) 0.02 (0.00-0.03) X10*3/uL Absolute Neuts (auto) 3.9 (2.0-8.3) x10*3/uL Absolute Nucleated RBC 0.000 (0.0-0.012) X10*3/uL Nucleated RBC % (auto) 0.0 (0.0-0.2) /100WBC Sodium 139 (135-145) mmol/L Potassium 3.7 (3.3-5.1) mmol/L Chloride 107 (96-108) mmol/L Carbon Dioxide 25 (22-29) mmol/L Anion Gap 11 L (12-20) BUN 9 (9-16) mg/dL Creatinine 0.71 (0.5-1.4) mg/dL Estim Creat Clear Calc 122.0 Estimated GFR > 60 Random Glucose 77 (60-115) mg/dL Calcium 9.0 (8.4-10.2) mg/dL Total Bilirubin 0.5 (0.0-1.0) mg/dL Direct Bilirubin 0.2 (0.0-0.5) mg/dL AST 11 (5-31) U/L ALT 8 (0-31) U/L Alkaline Phosphatase 55 (39-117) U/L Total Protein 6.7 (6.5-8.0) g/dL Albumin 3.9 (3.5-5.0) g/dL Urine Color YELLOW Urine Appearance HAZY Urine pH 5.5 (5.0-8.0) Ur Specific Merom 1.015 (1.005-1.025) Urine Protein NEG (NEG-TRACE) MG/DL Urine Glucose (UA) NEG (NEG) MG/DL Urine Ketones NEG (NEG) MG/DL Urine Blood NEG (NEG) Urine Nitrite NEG (NEG) Ur Leukocyte Esterase TRACE H (NEG) Urine RBC 0 (0) /HPF Urine WBC 0-2 (0-4) /HPF Ur Squamous Epith Cells 2+ /LPF Urine Bacteria 1+ /LPF Urine Test (NEGATIVE) 09/08/21 Range/Units 18:12 WBC (4.8-10.8) X10*3/uL RBC (4.20-5.50) X10*6/uL Hgb (12.0-16.0) g/dl Hct (37.0-47.0) % MCV (80.0-98.0) fL MCH (27.0-33.0) pg MCHC (31.0-35.0) g/dl RDW (11.0-16.0) % Plt Count (160-400) X10*3/uL MPV (9.4-12.3) fL Immature Gran % (Auto) (0.0-0.4) % Neut % (Auto) (45-73) % Lymph % (Auto) (20-40) % Humphreys % (Auto) (2-11) % Eos % (Auto) (0-4) % Baso % (Auto) (0-2) % Lymph # (Auto) (1.2-4.9) X10*3/uL Humphreys # (Auto) (0.1-1.2) X10*3/uL Eos # (Auto) (0.0-0.4) X10*3/uL Baso # (Auto) (0.0-0.2) X10*3/uL Abs Immat Gran (auto) (0.00-0.03) X10*3/uL Absolute Neuts (auto) (2.0-8.3) x10*3/uL Absolute Nucleated RBC (0.0-0.012) X10*3/uL Nucleated RBC % (auto) (0.0-0.2) /100WBC Sodium (135-145) mmol/L Potassium (3.3-5.1) mmol/L Chloride (96-108) mmol/L Carbon Dioxide (22-29) mmol/L Anion Gap (12-20) BUN (9-16) mg/dL Creatinine (0.5-1.4) mg/dL Estim Creat Clear Calc Estimated GFR Random Glucose (60-115) mg/dL Calcium (8.4-10.2) mg/dL Total Bilirubin (0.0-1.0) mg/dL Direct Bilirubin (0.0-0.5) mg/dL AST (5-31) U/L ALT (0-31) U/L Alkaline Phosphatase (39-117) U/L Total Protein (6.5-8.0) g/dL Albumin (3.5-5.0) g/dL Urine Color Urine Appearance Urine pH (5.0-8.0) Ur Specific Merom (1.005-1.025) Urine Protein (NEG-TRACE) MG/DL Urine Glucose (UA) (NEG) MG/DL Urine Ketones (NEG) MG/DL Urine Blood (NEG) Urine Nitrite (NEG) Ur Leukocyte Esterase (NEG) Urine RBC (0) /HPF Urine WBC (0-4) /HPF Ur Squamous Epith Cells /LPF Urine Bacteria /LPF Urine Test NEGATIVE (NEGATIVE) Discharge Plan Discharge Clinical Impression: Accidental hypodermic needlestick injury Patient Disposition: Home, Self-Care Instructions: Needle Stick Injuries (ED) Additional Instructions: We started the HIV prophylaxis Follow with [facility] for help deciding whether you need to continue this medication Try to get your doctor at the 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 work at to call the patient and see if he is willing to come in for HIV and hepatitis testing as if the source patient is negative then there is will not need to continue your anti HIV medications Return any concerns Prescriptions: No Action oxycodone-acetaminophen 5-325 mg tablet 1 tab PO Q6H PRN (Reason: pain) 30 Days Qty: 120 0RF pantoprazole 40 mg tablet,delayed release (DR/EC) 40 mg PO DAILY Qty: 30 2RF sucralfate 100 mg/mL suspension 10 ml PO BID Qty: 400 2RF Referrals: [facility] [Provider Group] - 2 days (Follow-up for work-related needlestick, patient did opt for prophylaxis) Print Language: Slovak
[2021-09-08 18:17] LABS: MANUAL DIFF FLAG NO
[2021-09-08 18:22] LABS: Basophils Percent Auto 0.3 % (0-2); Eosinophils Absolute Auto 0.2 X10*3/uL (0.0-0.4); Eosinophils Percent Auto 2.5 % (0-4); Hematocrit 35.3 % (37.0-47.0); Imm Gran Abs Auto 0.02 X10*3/uL (0.00-0.03); Imm Gran Pct Auto 0.3 % (0.0-0.4); Lymphocytes Percent Auto 30.2 % (20-40); Mean Corpuscular HGB Conc 31.2 g/dl (31.0-35.0); Mean Corpuscular Hemoglobin 23.2 pg (27.0-33.0); Mean Corpuscular Volume 74.5 fL (80.0-98.0); Mean Platelet Volume 11.3 fL (9.4-12.3); Monocytes Absolute Auto 0.5 X10*3/uL (0.1-1.2); Monocytes Percent Auto 7.2 % (2-11); Neutrophils Absolute Auto 3.9 x10*3/uL (2.0-8.3); Neutrophils Percent Auto 59.5 % (45-73); Platelet Count 223 X10*3/uL (160-400); Red Blood Count 4.74 X10*6/uL (4.20-5.50); Red Cell Distribution Width 16.6 % (11.0-16.0); White Blood Count 6.5 X10*3/uL (4.8-10.8)
--- NOTE | 2021-09-08 18:24 | PC.NURSE ---
LABS AND URINE SENT. WAITING FOR [facility] BEFORE MEDS.
[2021-09-08 18:31] LABS: Appearance Urine HAZY; Color Urine YELLOW; Glucose Urine UA NEG (NEG); Leukocyte Esterase Urine TRACE (NEG); Nitrite Urine NEG (NEG); PH 5.5 (5.0-8.0); Specific Gravity - Urine 1.015 (1.005-1.025); UACC Culture Trigger YES; Urine Blood NEG (NEG); Urine Ketones NEG (NEG); Urine Protein NEG (NEG-TRACE)
[2021-09-08 18:33] LABS: Alanine Aminotransferase 8 U/L (0-31); Albumin Level 3.9 g/dL (3.5-5.0); Alkaline Phosphatase 55 U/L (39-117); Anion Gap 11 (12-20); Aspartate Amino Transferase 11 U/L (5-31); Bilirubin Direct 0.2 mg/dL (0.0-0.5); Bilirubin Total 0.5 mg/dL (0.0-1.0); Blood Urea Nitrogen 9 mg/dL (9-16); Carbon Dioxide 25 mmol/L (22-29); Chloride 107 mmol/L (96-108); Estimated Glomerular Filt Rate > 60; Glucose Random 77 mg/dL (60-115); Potassium 3.7 mmol/L (3.3-5.1); Sodium 139 mmol/L (135-145); Total Protein 6.7 g/dL (6.5-8.0)
[2021-09-08 18:34] LABS: UPreg QC Valid YES; Urine Pregnancy NEGATIVE (NEGATIVE)
[2021-09-08 18:40] LABS: Bacteria Urine 1+ /LPF; RBC Urine 0 /HPF (0); Squamous Epithelial Cell Urine 2+ /LPF; WBC Urine 0-2 /HPF (0-4)
[2021-09-08] MEDS: Post Exposure Medication Kit 1 KIT PO (18:49)
[2021-09-09 04:51] LABS: HBc Num1 0.13 S/CO (0.00-0.79); HBsAGNum1 0.26 S/CO (0.00-0.99); HIV AB/AG Nonreactive (Nonreactive); HIV Num 1 0.08 S/CO (0.00-0.99); Hepatitis B Core Antibody Nonreactive (Nonreactive); Hepatitis B Surface Antigen Negative (Negative); ~HepC Num1 0.09 S/CO (0.00-0.79); ~Hepatitis B Surface Antibody REACTIVE (Nonreactive); ~Hepatitis C Antibody Nonreactive (Nonreactive)
== END 2021-09-08 19:01 | disposition home or self-care (01) ==
PROVIDERS: Physician Assistant Medical; Emergency Provider Internal Medicine; PCP Internal Medicine
DX: Z04.2 Encounter for examination and observation following work accident (principal); Z77.21 Contact with and (suspected) exposure to potentially hazardous body fluids
CPT/HCPCS: 36415; 80048; 80076; 81001; 81025; 85025; 86704; 86706; 86803; 87086; 87340; 87389; 99283

== ENCOUNTER 2022-05-22 10:45 | Outpatient (REF) | payer OTHER, SELFPAY ==
[2022-05-22 10:58] LABS: MANUAL DIFF FLAG NO
[2022-05-22 11:14] LABS: Basophils Percent Auto 0.8 % (0-2); Eosinophils Absolute Auto 0.1 X10*3/uL (0.0-0.4); Eosinophils Percent Auto 1.5 % (0-4); Hematocrit 35.7 % (37.0-47.0); Hemoglobin 11.3 g/dl (12.0-16.0); Lymphocytes Absolute Auto 1.4 X10*3/uL (1.2-4.9); Lymphocytes Percent Auto 34.9 % (20-40); Mean Corpuscular HGB Conc 31.7 g/dl (31.0-35.0); Mean Corpuscular Hemoglobin 23.8 pg (27.0-33.0); Mean Corpuscular Volume 75.3 fL (80.0-98.0); Mean Platelet Volume 10.7 fL (9.4-12.3); Monocytes Absolute Auto 0.3 X10*3/uL (0.1-1.2); Monocytes Percent Auto 7.6 % (2-11); Neutrophils Absolute Auto 2.2 x10*3/uL (2.0-8.3); Neutrophils Percent Auto 55.2 % (45-73); Platelet Count 230 X10*3/uL (160-400); Red Blood Count 4.74 X10*6/uL (4.20-5.50); Red Cell Distribution Width 14.9 % (11.0-16.0)
[2022-05-22 11:46] LABS: Alanine Aminotransferase 7 U/L (0-31); Alkaline Phosphatase 52 U/L (39-117); Anion Gap 13 (12-20); Aspartate Amino Transferase 12 U/L (5-31); Bilirubin Total 0.7 mg/dL (0.0-1.0); Blood Urea Nitrogen 10 mg/dL (9-16); Calcium 8.9 mg/dL (8.4-10.2); Carbon Dioxide 26 mmol/L (22-29); Chloride 105 mmol/L (96-108); Cholesterol 160 mg/dL; Estimated Glomerular Filt Rate > 60; Glucose Fasting 85 mg/dL (60-99); HDL Cholesterol 50 mg/dL; Iron 31 mcg/dL (30-160); LDL Cholesterol Calculated 97 mg/dl; Percent Iron Saturation 7 % (15-50); Potassium 4.1 mmol/L (3.3-5.1); Sodium 140 mmol/L (135-145); Total Iron Binding Capacity 441 mcg/dL (228-428); Total Protein 6.7 g/dL (6.5-8.0); Triglycerides 67 mg/dL; Unsaturated Iron Binding 410 ug/dL
[2022-05-22 11:57] LABS: Erythrocyte Sedimentation Rate 5 MM/HR (0-20)
[2022-05-22 12:00] LABS: Rheumatoid Factor < 15.0 IU/mL (<15.0)
[2022-05-22 12:07] LABS: Vitamin D 25-OH Total 24.3 ng/mL (>30)
[2022-05-22 12:34] LABS: Folate 8.3 ng/mL (> or = 4.0); Vitamin B12 227 pg/mL (200-900)
[2022-05-26 12:06] LABS: Anti Nuclear Antibody Screen NEGATIVE (NEGATIVE)
[2022-05-26 14:22] LABS: Anti DNA DS Antibody 2 IU/mL
== END 2022-05-22 10:46 | disposition home or self-care (01) ==
LOC: HO.LAB 10:45
PROVIDERS: PCP Internal Medicine; Visit Provider Internal Medicine
DX: Z00.00 Encounter for general adult medical examination without abnormal findings (principal); D64.9 Anemia, unspecified; E78.5 Hyperlipidemia, unspecified; R20.0 Anesthesia of skin; M25.50 Pain in unspecified joint; E55.9 Vitamin D deficiency, unspecified
CPT/HCPCS: 36415; 80053; 80061; 82306; 82607; 82746; 83540; 85025; 85652; 86038; 86039; 86225; 86431

== ENCOUNTER 2023-08-18 08:05 | Outpatient (AMB) | payer OTHER, SELFPAY ==
--- NOTE | 2023-08-18 08:21 | AM.OFFWIN_ITS ---
Intake Vital Signs 08/18/23 08:25 Height 5 ft 5 in Weight 167 lb 4 oz BMI 27.8 BP 112/62 Blood Pressure Location Rt brachial Position Sitting Pulse 98 Pulse Source Pulse Oximeter Temp 98 F Temp Source Oral Pulse Oximetry (%) 96 Oxygen Delivery Method Room Air Intake Visit Reasons: EP headache earache [id number] Intake Note: Pt is here today for sore throat cough and congestion, pt states symptoms started yesterday. Patient Tobacco Use Status: Never used Tobacco Allergies No Known Allergies Allergy (Verified 08/18/23 08:39) Medication List - Last Reconciled 08/18/23 by Raul Villa MD oxycodone-acetaminophen 5-325 mg 1 tab PO Q6H PRN 30 days Do you need a note to return to daycare/school/sports/work: Yes HPI EP headache earache [id number] HPI Details 38-year-old female presents to the [facility] for a sick visit. Patient is complaining of headaches and sinus congestion. Complaining of sore throat and difficulty swallowing. No fevers or chills. [facility] Medical History (Updated 03/19/22 @ 11:44 by Kary Viera MD) FH: bariatric surgery Needle stick, hypodermic, accidental Back pain Liver fibrosis GERD (gastroesophageal reflux disease) COVID-19 vaccine series completed BMI 39.0-39.9,adult Morbid obesity Vitamin B12 deficiency Vitamin A deficiency Vitamin B1 deficiency Adjustment disorder, unspecified H. pylori infection Urinary tract infection Chronic back pain URI (upper respiratory infection) Hypovitaminosis D Iron deficiency anemia Surgical History (Updated 03/19/22 @ 11:37 by Kary Viera MD) S/P laparoscopic sleeve gastrectomy H/O umbilical hernia repair Family History (Updated 03/19/22 @ 11:38 by Kary Viera MD) Father Dyslipidemia Gout Mother Polyarthralgia Sister No problems noted. Brother Stroke Brother No problems noted. Brother No problems noted. Maternal Grandmother Breast cancer, Onset Age: 55 Social History Housing: Apartment Are you a primary healthcare network pricing consultant to a significant other at home: No Do you presently have visiting nurse or other home services: No Alcohol intake: never Patient Tobacco Use Status: Never used Tobacco Second Hand Smoke Exposure: No service: No Current occupational status: employed Cognitive needs: No Hearing needs: No Vision needs: No Physical Exam Vital Signs: Last Vital Signs Temp 98 F 08/18/23 08:25 Pulse 98 08/18/23 08:25 BP 112/62 08/18/23 08:25 Pulse Ox 96 08/18/23 08:25 Oxygen Delivery Method Room Air 08/18/23 08:25 BMI result Body Mass Index 27.8 Const General: cooperative and healthy appearing Nutritional Appearance: well nourished Orientation/consciousness: patient oriented x3 Limitations: no limitations HEENT Head: Yes normal to inspection Eyes General: appearance normal, both eyes and all related structures Neck Neck: Yes normal visual inspection Chest Chest palpation & inspection: normal palpation of entire chest wall Resp Effort & Inspection: normal respiratory effort Neuro General: patient oriented x3 Assessment & Plan Assessment & Plan (1) Upper respiratory tract infection: Code(s): J06.9 - Acute upper respiratory infection, unspecified Plan: Azithromycin called in. If symptoms do not improve to follow-up here. Coding Level of Care Code Est Pt Level 3 (89184) Diagnoses Upper respiratory tract infection J06.9
[2023-08-18 08:25] VITALS: BP 112/62; PULSE 98; TEMP 36.6; O2SAT 96; BMI 27.8
== END 2023-08-18 09:08 | disposition home or self-care (01) ==
PROVIDERS: PCP Internal Medicine; Visit Provider Internal Medicine
DX: J06.9 Acute upper respiratory infection, unspecified (principal)
CPT/HCPCS: 99213

== ENCOUNTER 2023-08-18 12:32 | Outpatient (REF) | payer OTHER, SELFPAY ==
[2023-08-18 15:27] LABS: Influenza A PCR NEGATIVE (Negative); Influenza B PCR NEGATIVE (Negative); Resp Syncy Virus RNA Qual PCR NEGATIVE (Negative); SARS COV2 PCR INHOUSE NEGATIVE (Negative)
== END 2023-08-18 12:33 | disposition home or self-care (01) ==
LOC: HO.LAB 12:32
PROVIDERS: Visit Provider Internal Medicine
DX: Z11.52 Encounter for screening for COVID-19 (principal); R09.89 Other specified symptoms and signs involving the circulatory and respiratory systems
CPT/HCPCS: 0241U

== ENCOUNTER 2024-06-08 16:17 | Outpatient (AMB) | payer OTHER, SELFPAY ==
[2024-06-08 16:24] VITALS: BP 138/80; PULSE 72; O2SAT 100; BMI 29.5
--- NOTE | 2024-06-08 16:24 | MHC.PC.OV ---
Vital Signs 06/08/24 16:24 Height 5 ft 5 in Weight 177 lb BMI 29.5 BP 138/80 Blood Pressure Location Lt brachial Position Sitting Pulse 72 Pulse Source Pulse Oximeter Pulse Oximetry (%) 100 Oxygen Delivery Method Room Air Intake Visit Reasons: physical Facilities Manager Required: No Accompanied by: Self / Same As Patient Allergies No Known Allergies Allergy (Verified 06/08/24 17:19) Medication List - Last Reconciled 06/08/24 by Kary Viera MD azithromycin take 500 mg today (day 1), then 250 mg for 4 days (days 2-5) PO hydrocortisone 1% (Anti-Itch (hydrocortisone)) 1 appl topical TID PRN 2 weeks hydroxyzine HCl 25 mg PO BEDTIME 30 days oxycodone-acetaminophen 5-325 mg 1 tab PO Q6H PRN 30 days prednisone 10 mg PO DIRECTED 8 days Tobacco use date assessed: 06/08/24 Dental Screening Dental Screen Date: 06/08/24 HPI HPI Comments History of Present Illness Details This is 39-year-old female that comes for her physical exam. Last Pap smear was done over 4 years ago and she will call for another appointment. No acute complaints. [facility] Medical History FH: bariatric surgery Needle stick, hypodermic, accidental Back pain Liver fibrosis GERD (gastroesophageal reflux disease) COVID-19 vaccine series completed BMI 39.0-39.9,adult Morbid obesity Vitamin B12 deficiency Vitamin A deficiency Vitamin B1 deficiency Adjustment disorder, unspecified H. pylori infection Urinary tract infection Chronic back pain URI (upper respiratory infection) Hypovitaminosis D Iron deficiency anemia Surgical History (Updated 06/08/24 @ 17:22 by Kary Viera MD) H/O LEEP S/P laparoscopic sleeve gastrectomy H/O umbilical hernia repair Family History (Updated 06/08/24 @ 17:21 by Kary Viera MD) Father Dyslipidemia Gout Mother Polyarthralgia Multiple sclerosis Sister No problems noted. Brother Stroke Brother No problems noted. Brother No problems noted. Maternal Grandmother Breast cancer, Onset Age: 55 Social History (Updated 06/08/24 @ 17:22 by Kary Viera MD) Housing: Apartment Are you a primary personal care service provider to a significant other at home: No Do you presently have visiting nurse or other home services: No Alcohol intake: current Alcohol intake frequency: holidays/special occasions only Alcohol type: beer Patient Tobacco Use Status: Never used Tobacco Second Hand Smoke Exposure: No service: No Current occupational status: employed Cognitive needs: No Hearing needs: No Vision needs: No Questionnaire PHQ-9 Over the last 2 weeks, how often have you been bothered by any of the following problems? 1. Little interest or pleasure in doing things: not at all 2. Feeling down, depressed, or hopeless: not at all 3. Trouble falling or staying asleep, or sleeping too much: more than half the days 4. Feeling tired or having little energy: more than half the days 5. Poor appetite or overeating: not at all 6. Feeling bad about yourself - or that you are a failure or have let yourself or your family down: not at all 7. Trouble concentrating on things, such as reading the newspaper or watching television: not at all 8. Moving or speaking so slowly that other people could have noticed. Or the opposite - being so fidgety or restless that you have been moving around a lot more than usual: not at all 9. Thoughts that you would be better off or of hurting yourself in some way: not at all Total score: 4 Depression Screening Interpretation: Positive Depression Screening Follow-up: Existing condition and Follow-up Visit Requested Depression Screening Done: Yes 82820 - PHQ-9 Billing: Yes Source: Developed by Drs. Onofre Morrell, Katey Walls, Fco Mckinnon and colleagues, with an educational hunter from [employer]. Thrive Questionnaire Date Thrive assessed: 03/19/22 I am a: Patient What is your living situation today?: I have a steady place to live Within the past 12 months, did the food you bought not last and you didn't have the money to get more?: Never true Within the past 12 months, did you worry whether your food would run out before you got money to buy more?: Never true Do you have trouble paying for medicines?: No Do you have trouble getting transportation to medical appointments?: No Do you have trouble paying your heating and electricity bill?: No Do you have trouble taking care of your child, family member or friend?: No Do you have trouble with day-to-day activities such as bathing, preparing meals, shopping, managing finances, etc.?: No Are you currently unemployed and looking for a job?: No Are you interested in more education?: No Please select the resources that you would like help with: None Currently or been in a relationship where the following occur: No concerns reported THRIVE Score: 0 AUDIT C Alcohol Use Questionnaire (AUDIT-C) 1. How often do you have a drink containing alcohol?: Monthly or less 2. How many drinks containing alcohol do you have on a typical day when you are drinking?: 1 or 2 3. How often do you have six or more drinks on one occasion?: Never Total Score: 1 Score Reviewed/Action Taken: No MAURILIO-7 AMB Questionnaire MAURILIO-7 Date MAURILIO - 7 assessed: 03/19/22 Feeling nervous, anxious, or on edge: 0 = Not at all Not being able to stop or control worryin = Not at all Worrying too much about different things: 0 = Not at all Trouble relaxin = Not at all Being so restless that it is hard to sit still: 0 = Not at all Becoming easily annoyed or irritable: 0 = Not at all Feeling afraid as if something awful might happen: 0 = Not at all Total MAURILIO-7 score (0-4 normal; 5-9 mild; 10-14 moderate; 15-21 severe): 0 Source: Developed by Drs. Onofre Morrell, Katey Walls, Fco Mckinnon and colleagues, with an educational hunter from [employer]. MAURILIO-7 Assessment Billing MAURILIO-7 Assessment Tool: MAURILIO-7 Assessment 19607 Review of Systems Const All systems reviewed & are unremarkable except as noted in HPI and below ENT Denies change in voice, Denies nasal discharge and Denies sinus pain Card Denies chest pain at rest, Denies chest pain with activity, Denies edema, Denies irregular heart rhythm, Denies claudication, Denies dyspnea, Denies dyspnea on exertion, Denies orthopnea, Denies paroxysmal nocturnal dyspnea and Denies slow heart rate Resp Denies cough, Denies dyspnea and Denies dyspnea on exertion GI Denies abdominal pain, Denies change in bowel habits, Denies excessive flatus, Denies nausea and Denies vomiting Denies urinary incontinence, Denies urinary hesitancy and Denies urinary urgency Musc Denies abnormal gait, Denies atrophy, Denies deformity and Denies limited range of motion Skin/Breast Denies bleeding lesions, Denies changing lesions and Denies rash Neuro Denies abnormal gait, Denies behavioral changes and Denies lack of coordination Psych Denies behavioral changes Physical exam (Primary Care) Vital Signs: Last Vital Signs Pulse 72 06/08/24 16:24 BP 138/80 06/08/24 16:24 Pulse Ox 100 06/08/24 16:24 Oxygen Delivery Method Room Air 06/08/24 16:24 BMI result Body Mass Index 29.5 Tobacco/Smoking Status: Tobacco use Status Tobacco use date assessed 06/08/24 06/08/24 16:25 Patient Tobacco Use Status Never used Tobacco 06/08/24 16:25 PHQ-9: PHQ-9 Score PHQ-9: Total score 4 06/08/24 16:25 Depression Screening Interpretation: Positive Depression Screening Follow-up: Existing condition and Follow-up Visit Requested Thrive Assessment: Date of Thrive Assessment Date Thrive assessed 03/19/22 06/08/24 16:25 Currently or been in a relationship where the following occur: No concerns reported HENOR Head: Yes normal to inspection, Yes normocephalic and Yes atraumatic Ears: external ears normal Eyes General: appearance normal, both eyes and all related structures Eyelids: Yes eyelids normal Conjunctivae: conjunctivae normal Neck Neck: Yes normal visual inspection and Yes supple Resp Effort & Inspection: normal respiratory effort Auscultation: clear to auscultation bilaterally Cardio Jugular venous distension: no JVD Rate: regular rate Rhythm: regular rhythm Heart sounds: S1 normal heart sound present and S2 normal heart sound present GI Inspection: Yes normal to inspection Palpation (GI): Soft to palpation and nontender Auscultation: normal bowel sounds Skin General skin exam: no rashes or lesions noted Neuro General: no focal motor deficits Extrem General: Yes full ROM Psych Appearance: grossly normal Coding Level of Care Code Est Pt Prev Care 18-39y(69542) Diagnoses Physical exam Z00.00 Additional Codes MAURILIO-7 Assessment Billing - MAURILIO-7 Assessment Tool: MAURILIO-7 Assessment 51359 ([id number]) Time Spent (min) 30 Assessment & Plan Assessment & Plan (1) Physical exam: Code(s): Z00.00 - Encounter for general adult medical examination without abnormal findings Category: Medical Plan: Repeat in a year.
== END 2024-06-08 17:32 | disposition home or self-care (01) ==
LOC: HO.HMCH 16:18
PROVIDERS: PCP Internal Medicine; Visit Provider Internal Medicine
DX: Z00.00 Encounter for general adult medical examination without abnormal findings (principal)

== ENCOUNTER → 2024-06-08 16:17 | Outpatient (BNVA) | payer OTHER, SELFPAY | PROVIDERS: PCP Internal Medicine; Visit Provider Internal Medicine | DX: Z00.00 Encounter for general adult medical examination without abnormal findings (principal) | CPT/HCPCS: 96127; 99395 ==

== ENCOUNTER 2024-06-19 08:37 | Outpatient (AMB) | payer OTHER, SELFPAY ==
--- NOTE | 2024-06-19 09:28 | MHC.PC.OV ---
Vital Signs 06/19/24 09:29 Height 5 ft 5 in Weight 177 lb BMI 29.5 BP 98/60 Blood Pressure Location Lt brachial Position Sitting Pulse 62 Pulse Source Pulse Oximeter Pulse Oximetry (%) 98 Oxygen Delivery Method Room Air Intake Visit Reasons: Swollen Ankle Intake Note: Patient is here to follow up on left swollen ankle. Poultry Boner Required: No Pharmacy Technician Program Director: Not Required per policy Accompanied by: Self / Same As Patient Allergies No Known Allergies Allergy (Verified 06/19/24 09:31) Medication List - Last Reconciled 06/19/24 by Kary Viera MD azithromycin take 500 mg today (day 1), then 250 mg for 4 days (days 2-5) PO hydrocortisone 1% (Anti-Itch (hydrocortisone)) 1 appl topical TID PRN 2 weeks hydroxyzine HCl 25 mg PO BEDTIME 30 days oxycodone-acetaminophen 5-325 mg 1 tab PO Q6H PRN 30 days prednisone 10 mg PO DIRECTED 8 days Tobacco use date assessed: 06/19/24 Dental Screening Dental Screen Date: 06/08/24 HPI HPI Comments History of Present Illness Details This is a 39-year-old female that complains left ankle pain and swelling after twisting it yesterday. Has limited range of motion due to pain and swelling. No previous trauma before. Has trouble walking. No redness or warmth. [facility] Medical History (Updated 06/19/24 @ 09:54 by Kary Viera MD) FH: bariatric surgery Needle stick, hypodermic, accidental Back pain Liver fibrosis GERD (gastroesophageal reflux disease) COVID-19 vaccine series completed BMI 39.0-39.9,adult Morbid obesity Vitamin B12 deficiency Vitamin A deficiency Vitamin B1 deficiency Adjustment disorder, unspecified H. pylori infection Urinary tract infection Chronic back pain URI (upper respiratory infection) Hypovitaminosis D Iron deficiency anemia Surgical History H/O LEEP S/P laparoscopic sleeve gastrectomy H/O umbilical hernia repair Family History Father Dyslipidemia Gout Mother Polyarthralgia Multiple sclerosis Sister No problems noted. Brother Stroke Brother No problems noted. Brother No problems noted. Maternal Grandmother Breast cancer, Onset Age: 55 Social History Housing: Apartment Are you a primary wound care nurse to a significant other at home: No Do you presently have visiting nurse or other home services: No Alcohol intake: current Alcohol intake frequency: holidays/special occasions only Alcohol type: beer Patient Tobacco Use Status: Never used Tobacco e-Cigarette/Vaping Use: Never Used Second Hand Smoke Exposure: No service: No Current occupational status: employed Cognitive needs: No Hearing needs: No Vision needs: No Questionnaire Thrive Questionnaire Date Thrive assessed: 03/19/22 MAURILIO-7 AMB Questionnaire MAURILIO-7 Date MAURILIO - 7 assessed: 03/19/22 Source: Developed by Drs. Onofre Morrell, Katey Walls, Fco Mckinnon and colleagues, with an educational hunter from [employer]. Review of Systems Const All systems reviewed & are unremarkable except as noted in HPI and below Card Denies chest pain at rest, Denies chest pain with activity, Denies edema, Denies irregular heart rhythm, Denies claudication, Denies dyspnea, Denies dyspnea on exertion, Denies orthopnea, Denies paroxysmal nocturnal dyspnea and Denies slow heart rate Resp Denies cough, Denies dyspnea and Denies dyspnea on exertion Physical exam (Primary Care) Vital Signs: Last Vital Signs Pulse 62 06/19/24 09:29 BP 98/60 06/19/24 09:29 Pulse Ox 98 06/19/24 09:29 Oxygen Delivery Method Room Air 06/19/24 09:29 BMI result Body Mass Index 29.5 Tobacco/Smoking Status: Tobacco use Status Tobacco use date assessed 06/19/24 06/19/24 09:29 Patient Tobacco Use Status Never used Tobacco 06/19/24 09:29 e-Cigarette/Vaping Use Never Used 06/19/24 09:29 Thrive Assessment: Date of Thrive Assessment Date Thrive assessed 03/19/22 06/19/24 09:29 Resp Effort & Inspection: normal respiratory effort Auscultation: clear to auscultation bilaterally Cardio Jugular venous distension: no JVD Rate: regular rate Rhythm: regular rhythm Heart sounds: S1 normal heart sound present and S2 normal heart sound present Extrem Left lower extremity: ankle Details: tenderness, swelling and abnormal ROM Details: pain with active ROM Details: with dorsiflexion Coding Level of Care Code Est Pt Level 3 (97446) Complex EM visit Add On G2211 Diagnoses Sprain of left ankle, unspecified ligament, initial encounter S93.402A Encounter type: initial encounter Involved ligament of ankle: unspecified ligament Time Spent (min) 19 Assessment & Plan Assessment & Plan (1) Left ankle sprain: Code(s): S93.402A - Sprain of unspecified ligament of left ankle, initial encounter Category: Medical Qualifiers: Encounter type: initial encounter Involved ligament of ankle: unspecified ligament Qualified Code(s): S93.402A - Sprain of unspecified ligament of left ankle, initial encounter Plan: Start naproxen as needed. X-ray ordered. Start using ankle stabilizer. Orders: Orders XR ankle LT 2V Today S93.402A - Sprain of unspecified ligament of left ankle, initial encounter Medications: New naproxen 500 mg PO BID 5 days PRN 10 tabs 0RF pain
[2024-06-19 09:29] VITALS: BP 98/60; PULSE 62; O2SAT 98; BMI 29.5
== END 2024-06-19 10:17 | disposition home or self-care (01) ==
LOC: HO.HMCH 08:37
PROVIDERS: PCP Internal Medicine; Visit Provider Internal Medicine
DX: S93.402A Sprain of unspecified ligament of left ankle, initial encounter (principal)

== ENCOUNTER 2024-06-19 08:37 | Outpatient (REF) | payer OTHER, SELFPAY ==
--- NOTE | ~2024-06-19 | XR_ITS ---
EXAMINATION: XR ANKLE, LEFT CLINICAL INFORMATION: Ankle sprain COMPARISON: None available. TECHNIQUE: AP, lateral, and mortise views of the left ankle. FINDINGS: No fracture. Alignment is anatomic. No erosions. Joint spaces are maintained. Soft tissue swelling overlying the lateral malleolus. XR/XR ankle LT 2V IMPRESSION: Soft tissue swelling overlying the lateral malleolus. Electronically signed by: Sunni Wetzel MD 06/19/2024 12:38 PM [facility]
== END 2024-06-19 08:38 | disposition home or self-care (01) ==
LOC: HO.XRAY 08:37
PROVIDERS: PCP Internal Medicine; Visit Provider Internal Medicine
DX: S93.402A Sprain of unspecified ligament of left ankle, initial encounter (principal)
CPT/HCPCS: 73600; 99212

== ENCOUNTER 2024-10-04 13:47 | Outpatient (REF) | payer OTHER, SELFPAY ==
[2024-10-04 15:08] LABS: Influenza A PCR NEGATIVE (Negative); Influenza B PCR NEGATIVE (Negative); Resp Syncy Virus RNA Qual PCR POSITIVE (Negative); SARS COV2 PCR INHOUSE NEGATIVE (Negative)
--- OUTSIDE RECORDS SUMMARY | 2024-10-04 16:59 | XMS_ITS | Clinical Summary ---
Author Organization [facility] [address] [place] [address] [place] [phone] Phone Care Team Providers Care Licensing Director Name Role Phone Kary Viera MD Primary Care Provider [phone] Allergies No known active allergies Medications vit no.180-iron-fo lic ( Plus Vitamin-Minera l) 27 mg iron- 1 mg tablet Take 1 tablet by mouth 1 (one) time each day. 90 tablet 3 09/15/19 25 Active aspirin 81 mg EC tablet Take 2 tablets (162 mg total) by mouth 1 (one) time each day. 180 each 1 09/29/19 25 025 Active vitamin iron fum-folic acid 27-0.8 mg per tablet Take 1 tablet by mouth 1 (one) time each day. 90 each 3 09/28/19 25 026 Active ferrous gluconate (FERGON) 324 mg (38 mg iron) tablet Take 1 tablet (324 mg total) by mouth 1 (one) time each day. 30 tablet 3 09/28/19 25 026 Active oxycodone HCl/aspirin (OXYCODONE-ASP IRIN ORAL) Take by mouth. 025 Discontinued(Pr egnancy) PNV no.95/ferrous fum/folic ac ( ORAL) Take 1 Tab by mouth daily. 025 Discontinued(Pr egnancy) docusate sodium (COLACE) 100 mg capsule Take 1 Cap by mouth daily. 025 Discontinued(Pr egnancy) medroxyPROGEST ERone 150 mg/mL injection Inject 1 mL into the muscle Every 3 Months. 025 Discontinued(Pr egnancy) nystatin-triam cinolone (MYCOLOG II) ointment Apply a thin layer to affected area twice daily x 2 weeks, then daily until resolved 025 Discontinued(Pr egnancy) rho,D, immune globulin (HyperRHO S/D) 1,500 unit (300 mcg) syringe injection Inject 1,500 Units into the muscle Once. 025 Discontinued Active Problems Problem Noted Date Diagnosed Date H/O umbilical hernia repair 09/29/2024 Blood type, Rh negative 09/28/2024 Anemia 09/28/2024 Bariatric surgery status 09/28/2024 Overview (09/28/2024): 2021 gastric sleeve Obesity complicating childbirth 09/28/2024 Overview (09/28/2024): HgbA1C and 1 hour GTT at initial labs ASA 162mg at 12 weeks until delivery Detailed anatomy ultrasound Repeat GTT 24-28 weeks if early is normal Pre-preg BMI 35-39.9: NST weekly at 37 weeks Pre-preg BMI >40: NST weekly at 34 weeks Pre-preg BMI >45: NST weekly at 32 weeks Growth US at 32 and 36 weeks for BMI >40 BMI of 50 by 28wks transfer to [facility] DVT prophylaxis- Lovenox if CS and BMI >35 Chronic back pain 09/28/2024 Overview (09/28/2024): Rx for Oxycodone prn. Advised to stop taking in Multigravida of advanced maternal age in first t rimester 09/15/2024 Overview (09/15/2024): ASA 162 mg daily at 12w through delivery Referral for NIPT if desired Detailed US 3rd trimester growth US if maternal age 40 or greater Weekly NST at 36 weeks Offer delivery at 39 weeks if maternal age 40 or greater in first trimester with history of ectopic 09/15/2024 Overview (09/29/2024): 1. [facility] site: [facility]: [address] [place] [address] ([phone]) 2. Delivery site: [facility] 3. Mobile Mommas: No 4. Dating criteria: LMP 5. Blood type: A- 6. Genetic screening: Date: Result: Panorama: Ordered Horizon: Ordered Nuchal: Scheduled 10/06/24 @ 10am Survey: MSAFP: 6. GBS: Date: 7. FOB name: Gildardo 8. Plans A. Epidural or other pain management -open B. Labor support identified - Gildardo Chanel Tdap - Date: Flu - Date: declines D. Breast or Bottle feed: Undecided E. Baby's name - F. Circumcision -? 9. Hospital Course: HGSIL (high grade squamous i ntraepithelial lesion) on Pap smear of cervix 09/07/2018 Overview (09/15/2024): 06/2013 LGSIL 08/2013 Colpo biopsy benign >> LOST TO FOLLOW UP 03/2017 ASCUS, positive HRHPV >> LOST TO FOLLOW UP 03/2018 HGSIL, positive HRHPV after SAB >> LOST TO FOLLOW UP 09/07/18 HGSIL, positive HRHPV pap smear - repeated at IP visit 12/2018 OB colpo completed >>> Needs to return for colpo biopsy . Vitamin D deficiency 06/05/2013 Vitamin B12 deficiency 06/05/2013 Estimated Date of Delivery Comme nts Yes 04/09/2025 Date entered chari or to episode creation Resolved Problems Problem Noted Date Diagnosed Date Resolved Date Abnormal Pap smear of cervix 09/06/2024 09/15/2024 Overview (09/15/2024): Last Assessment & Plan: Repeat colp Dysplasia of cervix, high grade MANPREET 2 09/05/2019 09/15/2024 Encounters Date Type Department Care Team Description 09/29/2024 9:00 AM EST Initial Obstetrics and Gynecology - [address] [phone] Roe Morrison CNM [place]: 12w4d 09/29/2024 Telephone Obstetrics and Gynecology - [address] [phone] Loretta Zayas [place] 09/28/2024 2:00 PM EST Clinical Support Obstetrics and Gynecology - [address] [phone] Blood type, Rh negative (Primary Dx); Multigravida of advanced maternal age in first trimester; Bariatric surgery status; Obesity complicating childbirth; care, subsequent in first trimester; Chronic back pain, unspecified back location, unspecified back pain laterality; in first trimester with history of ectopic 09/15/2024 1:00 PM EST Office Visit Obstetrics and Gynecology - [place] [address] [place] [phone] Mallory Adkins CNM test positive (Primary Dx); HGSIL (high grade squamous intraepithelial lesion) on Pap smear of cervix; Multigravida of advanced maternal age in first trimester 09/14/2024 Telephone Obstetrics and Gynecology - [address] [phone] Mel Alcantar, FAN from Last 3 Months Immunizations Name Administration Dates Next Due DTP 05/28/2007, 2,10/07/1988,1987,1987 Hepatitis A Pediatric (Havri x; Vaqta) 12mo to less than 19yo 11/10/1999,06/17/1999 Hepatitis B (Xlkofem-A-Jjtmt , Recombivax HB-Adult) 19yo and older 05/07/1999,10/09/1998,08/01/1998 Influenza trivalent, with preservative (Fluzone; Afluria) 6mo and older 09/20/2013 MMR, measles mumps and rubel la Live (Priorix; M-M-R II) 12mo and older 10/09/1998,10/12/1988 OPV 02/07/1992, 9,01/08/1988,1986 PPD Test 09/20/2013,06/01/2013,08/18/2005 Td Tetanus diptheria (Tdvax) 7yo and older 05/07/1999 Tdap Tetanus diptheria acell ular pertussis (Boostrix; Adacel) 7yo and older 12/30/2018,06/01/2013 Varicella live (Varivax) 12m o and older 02/06/1991 Surgical History Surgery Date Site/Laterality Comments VAGINOSCOPY 2007 PROCEDURE: [place] COLPOSCOPY CERVIX BX CERVIX & ENDOCRV CURRETAGE; COMMENT: not had followup since colpo CERVICAL BIOPSY W/ LOOP ELEC TRODE EXCISION BARIATRIC SURGERY 2021 Medical History Medical History Date Comments Abnormal Pap smear of cervix DX: Abnormal Pap smear of cervix Migraine Anemia Rh incompatibility Family History Medical History Relation Name Comments Stroke Brother 1 Joe age 24 No Known Problems Brother 2 No Known Problems Brother 3 Alcohol abuse Father Diabetes Father Other: gout Father Dementia Maternal Grandfather Breast cancer Maternal Grandmother 60's Parkinsonism Maternal Grandmother 60's Hyperlipidemia Mother Kary Multiple sclerosis Mother Kary No Known Problems Sister Colon cancer Neg Hx Kidney cancer Neg Hx Ovarian cancer Neg Hx Prostate cancer Neg Hx Uterine cancer Neg Hx Relation Name Status Comments Brother 1 Joe Brother 2 Alive x3 full Brother 3 Alive Daughter 1 Alive Daughter 2 Alive Father Alive Maternal Grandfather Alive Maternal Grandmother 60's Mother Kary Alive Paternal Grandfather Paternal Grandmother Sister Alive Son Alive Social History Tobacco Use Types Packs/Day Years Used Date Smoking Tobacco: Never Smokeless Tobacco: Never Alcohol Use Standard Drinks/Week Comments No 0 (1 standard drink = 0.6 oz pur e alcohol) Housing Instability Answer Date Recorde d Are you worried that in the next 2 months you may not have stable housing? No 09/15/2024 Food Access & Nutrition Answer Date Rec orded Do you have access to a vari ety of food including fruits and vegetables? Yes 09/15/2024 Access to Healthcare Answer Date Record ed Within the last 3 months, ho w many times did you visit the emergency department for your medical care? 0 09/15/2024 Health Literacy Answer Date Recorded How often do you need to hav e someone help you when you read instructions, pamphlets, or other written material from your doctor or pharmacy? Never 09/15/2024 Caregiver: How often do you need to have someone help you when you read instructions, pamphlets, or other written material from your doctor or pharmacy? Not on file 09/15/2024 Financial Risk Answer Date Recorded How hard is it for you to pa y for the very basics like food, housing, medical care, and air conditioning / heating? Not very hard 09/15/2024 Transportation Answer Date Recorded Has the lack of transportati on kept you from meetings, work, or from getting things needed for daily living? No Has the lack of transportati on kept you from medical appointments or from getting medications? No 09/15/2024 Social Isolation Answer Date Recorded How often do you feel lonely or isolated from th ose around you? Never 09/15/2024 Food Risk Answer Date Recorded Within the past 12 months we worried whether our food would run out before we got money to buy more. Never true 09/15/2024 Within the past 12 months th e food we bought just didn't last and we didn't have money to get more. Never true 09/15/2024 Dependent Care Answer Date Recorded Do you need help finding or paying for care for your loved ones. For example, child welfare caseworker or elderly care for an older adult? No 09/15/2024 Education Answer Date Recorded Do you think completing more education or training, like finishing a GED, going to college, or learning a trade, would be helpful for you? Patient declined 09/15/2024 Employment and Income Answer Date Recor ded During the last four weeks, have you been actively looking for work? No 09/15/2024 Living Situation Answer Date Recorded What is your living situation? 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 [employer] Not on file Not on file Not on file Obstetrics History Para Term AB IAB SAB Ectopic Multiple Livin g Live Births 6 4 4 0 1 0 0 1 0 4 4 Date Outcome GA Total Labor Labor/2nd/3rd Weight Sex Type Anes PTL Elise A1 A5 Name Clin 2002 Term F Vag-S pont Living Complications:None 2003 Term F Vag-S pont Living Complications:None 2007 Term M Vag-S pont Living Complications:None 2018 Ectopic 2018 Term F Vag-S pont Living Current Summary Episode Dates Number of Fetuses Estimated Date of Delivery 09/28/2024 - Present (10/04/2024) 04/09/2025 (based on Alternate KARLEE Entry) Dating Summary Based On KARLEE [place] Diff Last Menstrual Period on 07/03/2024 (Exact Date) 04/09/2025 Same Alternate KARLEE Entry 04/09/2025 Working Comment:Date entered prior t o episode creation Vitals Pregravid Weight Height TWG (As of 10/04/2024) Pregrav id BMI 1.626 m (64 ) Notes Progress Notes - Initial Pre jame - 09/29/2024 - GA:12w4d 09/29/2024 - 12w4d - Britney Galo i, [place] Depression Scale: In the Past 7 Days I have been able to laugh and see the funny side of things.: As much as I always could I have looked forward with enjoyment to things.: As much as I ever did I have blamed myself unnecessarily when things went wrong.: No, never I have been anxious or worried for no good reason.: No, not at all I have felt scared or panicky for no good reason.: No, not at all Things have been getting on top of me.: No, most of the time I have coped quite well I have been so unhappy that I have had difficulty sleeping.: Not at all I have felt sad or miserable.: No, not at all I have been so unhappy that I have been crying.: No, never The thought of harming myself has occurred to me.: Never [place] Depression Scale Total: 1 09/29/2024 - 12w4d - Roe Morrison CNM Subjective: Ken Parker IUP 12w4d here for IP visit with partner Her is unplanned She and the partner of the baby are happy. Patient Patient's last menstrual period was 07/03/2024 (exact date).. She is certain of her LMP with regular cycles. is currently dated by lmp She complains of breast tenderness tolerating She denies vaginal bleeding or cramping. Flu vaccine declines indicated at today's visit. Chief Complaint Patient presents with Initial Visit HPI Review of Systems Constitutional: Negative for activity change and appetite change. HENT: Negative for rhinorrhea and sore throat. Respiratory: Negative for cough, chest tightness and shortness of breath. Cardiovascular: Negative for chest pain and palpitations. Gastrointestinal: Negative for abdominal pain, constipation, diarrhea and vomiting. Endocrine: Negative. Genitourinary: Negative for difficulty urinating, dyspareunia, dysuria, frequency, menstrual problem, pelvic pain, urgency, vaginal bleeding, vaginal discharge and vaginal pain. Musculoskeletal: Negative for back pain, joint swelling, neck pain and neck stiffness. Skin: Negative. Breast: Negative for breast skin changes, nipple discharge, breast lump or mass and breast pain. Neurological: Negative for dizziness, syncope, speech difficulty, weakness, light-headedness, numbness and headaches. Psychiatric/Behavioral: Negative for behavioral problems, hallucinations and sleep disturbance. The patient is not nervous/anxious. Objective Physical Exam Constitutional: Appearance: Normal appearance. Cardiovascular: Rate and Rhythm: Normal rate and regular rhythm. Pulmonary: Effort: Pulmonary effort is normal. Breath sounds: Normal breath sounds. Chest: Chest wall: No mass, lacerations, deformity or swelling. Breasts: Right: Normal. No swelling, bleeding, inverted nipple or mass. Left: Normal. No swelling, bleeding, inverted nipple or mass. Abdominal: General: Abdomen is flat. Palpations: Abdomen is soft. Genitourinary: General: Normal vulva. Pubic Area: No rash. Labia: Right: No rash or tenderness. Left: No rash or tenderness. Urethra: No urethral pain or urethral lesion. Vagina: Normal. No signs of injury. No vaginal discharge, erythema or tenderness. Cervix: No cervical motion tenderness or discharge. Uterus: Not fixed and not tender. Adnexa: Right: No mass or tenderness. Left: No mass or tenderness. Musculoskeletal: Cervical back: Normal range of motion. Lymphadenopathy: Upper Body: Right upper body: No supraclavicular or axillary adenopathy. Left upper body: No supraclavicular or axillary adenopathy. Neurological: Mental Status: She is alert. Vitals: 09/29/24 0903 BP: 116/69 Pulse: 74 Vitals BP: 116/69 Weight: 83.1 kg (183 lb 3.2 oz) [place] Depression Scale: In the Past 7 Days I have been able to laugh and see the funny side of things.: As much as I always could I have looked forward with enjoyment to things.: As much as I ever did I have blamed myself unnecessarily when things went wrong.: No, never I have been anxious or worried for no good reason.: No, not at all I have felt scared or panicky for no good reason.: No, not at all Things have been getting on top of me.: No, most of the time I have coped quite well I have been so unhappy that I have had difficulty sleeping.: Not at all I have felt sad or miserable.: No, not at all I have been so unhappy that I have been crying.: No, never The thought of harming myself has occurred to me.: Never [place] Depression Scale Total: 1 PN Check List: Pap is indicated at today's visit Std screening was collected at today's visit Panorama screening pending Depression screen negative level II high risk Anatomy ultrasound to be scheduled Assessment/Plan Supervision of high risk in first trimester (Primary) - US OB Detailed Single or First Gestation; Future 12 weeks gestation of Venereal disease screening - Chlamydia trachomatis and Neisseria gonorrhoeae molecular study Screening for malignant neoplasm of cervix - Pap smear Encounter for screening for maternal depression - Health and behavioral assessment; Future HGSIL (high grade squamous intraepithelial lesion) on Pap smear of cervix - Pap smear Above orders F/u prn Progress Notes - Clinical Love pport - 09/28/2024 - GA:12w3d 09/28/2024 - 12w3d - Mel Alcantar, RN Ken Parker is a 39 y.o. old female at 12w3d. This is Unplanned. The patient feels happy about the . The FOB is happy. This is their first child together. FOB Gildardo has 4 other grown children he has contact with. Patient's last menstrual period was 07/03/2024 (exact date).., which would make her currently 12w3d with an Estimated Date of Delivery: 04/09/25. She is certain of her date. An ultrasound has not been ordered to confirm dating Patient has significant history of: SAVD x4 uncomplicated, ectopic 2017 , Gastric sleeve 2021, AMA, HGSIL,anemia Obesity ,RH Neg, migraines. Chronic back pain Pt states she had an ectopic in 2018. No documentation of ectopic only a SAB OB Past Medical History: Have you had or do you currently have: Diabetes? No Hypertension? No Heart disease, Mitral valve Prolapse, or Rheumatic fever? No An Autoimmune disease such as Lupus or Rheumatoid Arthritis? No Epilepsy, Seizures, or Spells? No Migraine Headaches? Yes Stroke or loss of function or sensation? No Additional Questions: Have you ever been treated for anxiety and/or depression? No Are you having problems with crying spells or loss of self-esteem? No Have you ever required psychiatric care? No Have you ever had hepatitis, liver disease or jaundice? No Have you ever been treated for blood clots in your veins, deep venous thrombosis, inflammation in the veins, thrombosis, phlebitis, pulmonary embolism or varicosities? No Have you had excessive bleeding after surgery or dental work? No Do you bleed more than other women after a cut or scratch? No Do you have a history of anemia? Yes Have you ever had Thyroid problems or taken Thyroid medications? No Do you have any other Endocrine Problems (ie. PCOS)? No Have you ever been in a major accident or suffered serious trauma? No Within the last year, has anyone hit, slapped, kicked or otherwise hurt you? No In the last year, has anyone forced you to have sex when you didn't want to? No Do you feel safe at home? Yes Have you ever received a blood transfusion? No Would you refuse a blood transfusion if a doctor judged to be medically necessary? No Would you rather than receive a blood transfusion? No If you answered yes to the above questions, is this for voodoo reasons? No Do you know what your blood type is or if you are Rh Negative? Yes-- A Neg Have you ever had abnormal antibodies in your blood? No Have you ever had asthma? No Have you every had Tuberculosis? No Have you ever had any breast problems? No Have you ever breast fed? Yes a few mths with each baby Have you ever had any gynecological surgical procedures such as cervical conization, LEEP procedure, Laser treatment, cryosurgery of the cervix or dilation and curettage, etc? Yes LEEP 2019 Have you had any other surgical procedures? Yes umbilical hernia 2003, gastric sleeve 2021 Have you ever been hospitalized overnight for a non-surgical reason excluding normal delivery? Yes gastric surgery Have you ever had anesthesia complications? No Have you ever had an abnormal pap smear? Yes HGSIL pap Do you have a history of abnormalties of the uterus? No Did your mother take CONNOR or any other hormones when she was with you? No Did it take more than one year to become ? No Have you ever been evaluated or treated for infertility? No Is there a history of medical problems in your family which you feel might adversely affect your health or ? No Do you have any other problems we have not asked you about which you feel may be important for us to know for this ? No Do you currently have any of the following symptoms since your last menstrual period: Abdominal pain, blood in the stool or urine, chest pain, shortness of breath, coughing or vomiting up blood, your heart racing or skipping beats, nausea and/or vomiting, pain on urination, or vaginal discharge or vaginal bleeding? No OB Infection History: Do you object to being tested for Hepatitis B? No Do you object to being tested for HIV? No Do you feel that you are at high risk for coming contact with the AIDS virus? No Have you ever been treated for tuberculosis? No Have you ever received the BCG vaccine? No Have you ever had a positive skin test for Tuberculosis? No Do you live with someone who has Tuberculosis? No Have you ever been exposed to Tuberculosis? No Do you have Genital Herpes? No Does your partner have Genital Herpes? No Have you had a rash or viral illness since your last period? No Have you ever had Gonorrhea, Chlamydia, Syphilis, Venereal Warts, Trichomoniasis, Pelvic Inflammatory Disease (PID) or any other sexually transmitted disease? No Do you know if you are a Group B Streptococcus Carrier? No Did you have the Chicken Pox/Varicella? No Were you vaccinated against Chicken Pox/Varicella? Yes Have you had any other infectious diseases? No Pt has a hx of degenerative disc disease and has had chronic back pain for several years. Has taken oxycodone prn for the pain last Rx given on 09/19/24 by PCP. Advised to not take while . Safe medication list given. Ken Parker has been instructed on the following: random urine drug screening due to history of drug use and an initial urine drug screen has been ordered., She has been counseled regarding avoiding hazards, litter boxes, smoking, drug and alcohol use during Ken Parker has also been informed of the keno writer/runner provider recommendation for first trimester nuchal lucency testing to be performed during her . Ken Parker has also been made aware of the time sensitive nature for this testing to be completed. . The patient now has a gestational age of 12w3d. The patient would be due for this testing prior to 14 weeks gestation which would be on 10/09/24 Ethnicity Based Genetic Testing has been reviewed and the [employer] information sheet has been provided to the patient in their After Visit Summary. The patient was also advised that genetic testing may not be covered by all insurances. The patients states that they understand this information. The patient states that she has had the genetic screening for Cystic Fibrosis and Sickle Cell Screen done in the past during a previous . Results were NEG. The patient has agreed that she does want genetic testing for Horizon 14 The following Labs have been ordered: Obstetric Panel, HgA1c, Early Glucose Screen, HIV with verbal Consent, Hepatitis C, Varicella titer, Urine Culture, UDS, Panorama with gender, and Horizon 14 panel She is aware that her insurance may or may not cover Panorama and/or Horizon 14 test and discussed vazquez only traylor for test(s) - info given today in her after visit summary . She would like to proceed with testing. Electronically signed by: Mel Alcantar RN 09/28/24 2:17 PM EST Last Filed Vital Signs Vital Sign Reading Time Taken Comments Blood Pressure 116/69 09/29/2024 9:03 AM EST Pulse 74 09/29/2024 9:03 AM EST Temperature - - Respiratory Rate 15 09/15/2024 1:10 PM EST Oxygen Saturation - - Inhaled Oxygen Concentration - - Weight 83.1 kg (183 lb 3.2 oz) 09/29/2024 9:03 A M EST Height 162.6 cm (5' 4 ) 09/28/2024 2:01 PM EST Body Mass Index 31.45 09/28/2024 2:01 PM EST Plan of Treatment Upcoming Encounters Date Type Department Care Team (Late st Contact Info) Description 10/06/2024 10:00 AM EST Ancillary Procedure Maternal Medicine - [address] [phone] 10/27/2024 9:00 AM EDT Routine Obstetrics and Gynecology - [address] [phone] Sydnee Reynolds CNM [address] [place] [address] 11/24/2024 9:00 AM EDT Ancillary Procedure Maternal Medicine - [address] [phone] 11/24/2024 10:00 AM EDT Routine Obstetrics and Gynecology - [address] [phone] Edelmira Astorga MD [address] [place] [phone] 12/22/2024 9:15 AM EDT Routine Obstetrics and Gynecology - [address] [phone] Sydnee Reynolds CNM [address] [place] [address] 01/19/2025 9:00 AM EDT Routine Obstetrics and Gynecology - [address] [phone] Mary Kay Manzano, CN [address] [place] [address] Health Maintenance Due Date Last Done Comments Hepatitis A Vaccines (2 of 2 - 2-dose series) 05/11/2000 11/10/1999, 06/17/1999 COVID-19 Vaccine (3 - season) 2024 10/18/2020, 09/27/2020 Influenza Vaccine (#1) 2024 05/20/2017, 2013 Cholesterol Screening (Lipid Panel) 09/05/2024 Depression Screening 09/15/2025 09/15/2024 Social Influencers of Health Screening 09/15/2025 09/15/2024 DTaP,Tdap,and Td Vaccines (9 - Td or Tdap) 12/30/2028 12/30/2018, 06/01/2013, 05/28/2007, Additional history exists Cervical Cancer Screening: HPV 09/29/2029 09/29/2024, 06/09/2019 IPV Vaccines Completed 02/07/1992, 08/1988, 01/08/1988, Additional history exists Hepatitis B Vaccines Completed 05/07/1999, 10/09/1998, 08/01/1998 HIV Screening Completed 09/28/2024, 09/02/2018 Hepatitis C Screening Completed 09/28/2024 HIB Vaccines Aged Out No longer eligi ble based on patient's age to complete this topic HPV Vaccines Aged Out No longer eligi ble based on patient's age to complete this topic Meningococcal ACWY Vaccine Aged Out N o longer eligible based on patient's age to complete this topic Meningococcal B Vacine Aged Out No lo nger eligible based on patient's age to complete this topic Pneumococcal Vaccine: Pediatrics (0 to 5 Years) and At-Risk Patients (6 to 64 Years) Aged Out No longer eligible based on patient's age to complete this topic RSV Immunization Patients Under 20 months Aged Out No longer eligible based on patient's age to complete this topic Procedures Procedure Name Priority Date/Time Associated Diagnosis Comments PAP SMEAR Routine 09/29/2024 9:36 AM EST Screening for malignant neoplasm of cervix HGSIL (high grade squamous intraepithelial lesion) on Pap smear of cervix HPV WITH REFLEX GENOTYPE Routine 09/29/2024 9:36 AM EST Screening for malignant neoplasm of cervix HGSIL (high grade squamous intraepithelial lesion) on Pap smear of cervix CHLAMYDIA TRACHOMATIS AND NEISSERIA GONORRHOEAE PCR Routine 09/29/2024 9:36 AM EST Venereal disease screening VENIPUNCTURE CHARGE Routine 09/28/2024 3 :18 PM EST Multigravida of advanced maternal age in first trimester Obesity complicating childbirth care, subsequent in first trimester CBC WITH AUTO DIFFERENTIAL Routine 09/28/2024 3:18 PM EST Blood type, Rh negative Multigravida of advanced maternal age in first trimester Bariatric surgery status Obesity complicating childbirth care, subsequent in first trimester GTT GESTATIONAL 1 HOUR Routine 3:18 PM EST Blood type, Rh negative Multigravida of advanced maternal age in first trimester Bariatric surgery status Obesity complicating childbirth care, subsequent in first trimester VARICELLA ZOSTER ANTIBODY IGG Routine 09/28/2024 3:18 PM EST Blood type, Rh negative Multigravida of advanced maternal age in first trimester Bariatric surgery status Obesity complicating childbirth care, subsequent in first trimester HEPATITIS B SURFACE ANTIGEN WITH CONFIRMATION Routine 09/28/2024 3:18 PM EST Blood type, Rh negative Multigravida of advanced maternal age in first trimester Bariatric surgery status Obesity complicating childbirth care, subsequent in first trimester CBC AND DIFFERENTIAL Routine 09/28/2024 3:18 PM EST Blood type, Rh negative Multigravida of advanced maternal age in first trimester Bariatric surgery status Obesity complicating childbirth care, subsequent in first trimester DRUG ABUSE SCREEN EXPANDED WITH REFLEX CONFIRMATION, URINE Routine 09/28/2024 3:18 PM EST Blood type, Rh negative Multigravida of advanced maternal age in first trimester Bariatric surgery status Obesity complicating childbirth care, subsequent in first trimester HEPATITIS C ANTIBODY Routine 09/28/2024 3:18 PM EST Blood type, Rh negative Multigravida of advanced maternal age in first trimester Bariatric surgery status Obesity complicating childbirth care, subsequent in first trimester HIV 1, 2 ANTIBODY, P24 ANTIGEN WITH REFLEX TO DIFFERENTIATION Routine 09/28/2024 3:18 PM EST Blood type, Rh negative Multigravida of advanced maternal age in first trimester Bariatric surgery status Obesity complicating childbirth care, subsequent in first trimester RUBELLA ANTIBODY IGG Routine 09/28/2024 3:18 PM EST Blood type, Rh negative Multigravida of advanced maternal age in first trimester Bariatric surgery status Obesity complicating childbirth care, subsequent in first trimester TREPONEMA PALLIDUM ANTIBODY WITH REFLEX TO RPR AND PARTICLE AGGLUTINATION Routine 09/28/2024 3:18 PM EST Blood type, Rh negative Multigravida of advanced maternal age in first trimester Bariatric surgery status Obesity complicating childbirth care, subsequent in first trimester TYPE AND SCREEN Routine 09/28/2024 3:18 PM EST Blood type, Rh negative Multigravida of advanced maternal age in first trimester Bariatric surgery status Obesity complicating childbirth care, subsequent in first trimester GLUCOSE TOLERANCE TEST, 1H GESTATION Routine 09/28/2024 3:18 PM EST Blood type, Rh negative Multigravida of advanced maternal age in first trimester Bariatric surgery status Obesity complicating childbirth care, subsequent in first trimester HEMOGLOBIN A1C Routine 09/28/2024 3:18 PM EST Blood type, Rh negative Multigravida of advanced maternal age in first trimester Bariatric surgery status Obesity complicating childbirth care, subsequent in first trimester VENIPUNCTURE CHARGE Routine 09/28/2024 3 :18 PM EST Routine general medical examination at a health care facility CULTURE URINE Routine 09/28/2024 3:18 PM EST Blood type, Rh negative Multigravida of advanced maternal age in first trimester Bariatric surgery status Obesity complicating childbirth care, subsequent in first trimester POC , URINE DIAGNOSTIC Routine 09/15/2024 1:14 PM EST test positive from Last 3 Months Results * HPV with reflex genotype (09/29/2024 9:36 AM EST) HPV Negative Negative LAB MICROBIOLOGY METHOD 10/02/2024 3:08 PM EST [facility] Broom Cervix uteri structure / Unknown 09/29/2024 9:36 AM EST 10/02/2024 6:20 AM EST Roe Morrison [facility] MOLECULAR DIAGNOSTICS ORD ERABLES Final Result [facility] [address] [place] [address], [place] [phone] * Chlamydia trachomatis and Neisseria gonorrhoeae molecular study (09/29/2024 9:36 AM EST) Neisseria gonorrhoeae PCR Negative Negative LAB MOLECULAR DIAGNOSTICS METHOD 09/29/2024 4:07 PM EST [facility] Chlamydia trachomatis PCR Negative Negative LAB MOLECULAR DIAGNOSTICS METHOD 09/29/2024 4:07 PM EST [facility] Swab Vaginal structure / Unknown Non-blood Collection / Unknown 09/29/2024 9:36 AM EST 09/29/2024 9:36 AM EST Roe CHEEMA LAB MICROBIOLOGY - GENERAL OR DERABLES Final Result [facility] [address] [place] [address], [place] [phone] * (ABNORMAL) Pap smear (09/29/2024 9:36 AM EST) Interpretation Atypical squamous cells of undetermined significance(A) 10/04/2024 4:50 PM EST [facility] Clinical Information Hgsil 2019 10/04/2024 4:50 PM EST [facility] General Categorization Epithelial cell abnormality, see interpretation 10/04/2024 4:50 PM EST [facility] Specimen Adequacy Satisfactory for evaluation, endocervical/tra nsformation zone component present 10/04/2024 4:50 PM EST [facility] Pap Methodology Liquid Based Pap Test 10/04/2024 4:50 PM EST [facility] Disclaimer The Pap test is a screening test which carries an inherent false negative rate. These test results should be correlated with the patient's clinical findings and history. This Pap test was processed using an automated screening system. Technical cytopathology services provided by [facility], at [address] [place] [address] (CLIA # [id number]/Marisol Espinoza MD, [employer] Hostess.) 10/04/2024 4:50 PM EST [facility] Console Pap Interpretation Reported 10/04/2024 4:50 PM [facility] Broom Cervix uteri structure / Unknown 09/29/2024 9:36 AM EST 09/29/2024 9:36 AM EST Comment:Hgsil 2019 us Roe Morrison [facility] CYTOLOGY ORDERABLES Final Result [facility] [address] [place] [address], * Hepatitis C antibody (09/28/2024 3:18 PM EST) Hepatitis C Antibody Negative Negative LAB CHEMISTRY METHOD 09/28/2024 7:31 PM EST [facility] Blood Venous blood specimen / Unknown Venipuncture / Unknown 09/28/2024 3:18 PM EST 09/28/2024 3:18 PM EST Sydnee Reynolds [facility] BLOOD ORDERABLES Final Resu lt Performing Organization Address City/[facility]/ZIP Co de Phone Number [facility] [address] [place] [address], [place] [phone] * HIV 1,2 antibody, p24 antigen with reflex to differentiation (09/28/2024 3:18 PM EST) [facility] HIV Combo AB/AG Negative Negative LAB CHEMISTRY METHOD 09/28/2024 7:32 PM EST [facility] Blood Venous blood specimen / Unknown Venipuncture / Unknown 09/28/2024 3:18 PM EST 09/28/2024 3:18 PM EST Narrative [facility] - 09/28/2024 7:32 PM EST This assay is a 4th generation assay allowing for earlier detection of HIV infection by detecting the presence of the HIV-1 p24 antigen as well as the traditional antibodies to HIV type 1 (including group O) and type 2. ??Use of a 4th generation assay is the current CDC recommendation for HIV screening. us Sydnee CHEEMA LAB BLOOD ORDERABLES Final Resu lt Performing Organization Address City/[facility]/ZIP Co de Phone Number [facility] [address] [place] [address], [place] [phone] * Hepatitis B surface antigen with reflex to confirmation (09/28/2024 3:18 PM EST) [facility] Hepatitis B Surface Ag Negative Negative LAB CHEMISTRY METHOD 09/28/2024 7:03 PM EST [facility] Blood Venous blood specimen / Unknown Venipuncture / Unknown 09/28/2024 3:18 PM EST 09/28/2024 3:18 PM EST Narrative [facility] - 09/28/2024 7:03 PM EST Over the counter supplements containing high doses of biotin may interfere with this assay. ??If interference is suspected, patients shoud be retested after refraining from biotin supplements for 72 hours. Sydnee CHEEMA LAB BLOOD ORDERABLES Final Resu lt Performing Organization Address [facility]/ZIP Co de Phone Number [facility] [address] [place] [address], [place] [phone] * Treponema pallidum antibody with reflex to RPR and particle agglutination (09/28/2024 3:18 PM EST) Pathologist [facility] T. Pallidum Antibodies Negative Negative LAB CHEMISTRY METHOD 09/28/2024 7:05 PM EST [facility] Blood Venous blood specimen / Unknown Venipuncture / Unknown 09/28/2024 3:18 PM EST 09/28/2024 3:18 PM EST Sydnee Reynolds [facility] BLOOD ORDERABLES Final Resu lt Performing Organization Address [facility] Co de Phone Number [facility] [address] [place] [address], [place] [phone] * Venipuncture charge (09/28/2024 3:18 PM EST) Only the most recent of2 resultswithin the time period is included. Pathologist [facility] Extra Tube Hold for add-ons. 09/29/2024 12:02 PM EST [facility] Comment:Auto resulted. Blood Venous blood specimen / Unknown Venipuncture / Unknown 09/28/2024 3:18 PM EST 09/28/2024 3:18 PM EST Sydnee Reynolds [facility] BLOOD ORDERABLES Final Resu lt Performing Organization Address [facility]/ZIP Co de Phone Number [facility] [address] [place] [address], [place] [phone] * GTT gestational 1 hour (09/28/2024 3:18 PM EST) Glucose, 1 HR Gestational 107 See Comment mg/dL LAB CHEMISTRY METHOD 09/28/2024 6:35 PM EST [facility] Blood Venous blood specimen / Unknown Venipuncture / Unknown 09/28/2024 3:18 PM EST 09/28/2024 3:18 PM EST Narrative [facility] - 09/28/2024 6:35 PM EST Gestational Diabetes Challenge Reference Range: 1 hour Glucose <140 mg/dL Sydnee Reynolds [facility] BLOOD ORDERABLES Final Resu lt Performing Organization Address [facility]/ZIP Co de Phone Number [facility] [address] [place] [address], [place] [phone] * Drug abuse screen expanded with reflex confirmation, urine (09/28/2024 3:18 PM EST) [facility] Amphetamine Screen, Ur Negative Negative LAB CHEMISTRY METHOD 09/28/2024 5:32 PM [facility] Comment:Certain OTC medicati ons containing ephedrine, phenylephrine, pseudoephedrine and phenylpropanolamine can cause false positive results. Barbiturate Screen, Ur Negative Negative LAB CHEMISTRY METHOD 09/28/2024 5:32 PM EST [facility] Benzodiazepine Screen, Ur Negative Negative LAB CHEMISTRY METHOD 09/28/2024 5:32 PM EST [facility] Cocaine Screen, Ur Negative Negative LAB CHEMISTRY METHOD 09/28/2024 5:32 PM EST [facility] Opiate Screen, Ur Negative Negative LAB CHEMISTRY METHOD 09/28/2024 5:32 PM EST [facility] Cannabinoid (THC) Screen, Ur Negative Negative LAB CHEMISTRY METHOD 09/28/2024 5:32 PM EST [facility] Comment:Specimens from patie nts taking pantoprazole sodium (Protonix) have been shown to produce false positive results. Fentanyl, Ur Negative Negative LAB CHEMISTRY METHOD 09/28/2024 5:32 PM EST [facility] Oxycodone Screen, Ur Negative Negative LAB CHEMISTRY METHOD 09/28/2024 5:32 PM EST [facility] Urine Urine specimen obtained by clean catch procedure / Unknown Non-blood Collection / Unknown 09/28/2024 3:18 PM EST 09/28/2024 3:18 PM EST Narrative [facility] - 09/28/2024 5:32 PM EST Assay cutoffs: Amphetamines ? 1000 ng/mL Barbiturates ?200 ng/mL Benzodiazepines ?? 200 ng/mL Cocaine ? 300 ng/mL Fentanyl ?1 ng/mL Opiates ? 300 ng/mL Oxycodone ? 100 ng/mL THC ?50 ng/mL Semi-quantitative assay for screening purposes only. Unconfirmed screening result should not be used for non-medical purposes. *POSITIVE RESULTS ARE AUTOMATICALLY SENT FOR ALTERNATE METHOD CONFIRMATION* Sydnee CHEEMA LAB URINE ORDERABLES Final Resu lt [facility] [address] [place] [address], * (ABNORMAL) CBC auto differential (09/28/2024 3:18 PM EST) WBC 6.4 4.8 - 10.8 K/[facility] LAB HEMETOLOGY METHOD 09/28/2024 6:15 PM EST [facility] RBC 4.60 3.80 - 4.80 M/[facility] HEMETOLOGY METHOD 09/28/2024 6:15 PM [facility] Hemoglobin 9.3(L) 11.5 - 16.0 g/dL LAB HEMETOLOGY METHOD 09/28/2024 6:15 PM [facility] Hematocrit 31.9(L) 35.0 - 47.0 % LAB HEMETOLOGY METHOD 09/28/2024 6:15 PM [facility] MCV 69.0(L) 79.0 - 98.0 FL LAB HEMETOLOGY METHOD 09/28/2024 6:15 PM [facility] MCH 20.1(L) 27.0 - 32.0 pcg LAB HEMETOLOGY METHOD 09/28/2024 6:15 PM [facility] MCHC 29.2(L) 32.0 - 37.0 g/dL LAB HEMETOLOGY METHOD 09/28/2024 6:15 PM [facility] RDW 17.3(H) 11.0 - 15.0 % LAB HEMETOLOGY METHOD 09/28/2024 6:15 PM [facility] Platelets 253 130 - 400 K/[facility] HEMETOLOGY METHOD 09/28/2024 6:15 PM [facility] MPV 11.2(H) 7.0 - 11.0 FL LAB HEMETOLOGY METHOD 09/28/2024 6:15 PM [facility] NRBC 0.0 <1.0 % LAB HEMETOLOGY METHOD 09/28/2024 6:15 PM [facility] NRBC Absolute 0.00 <0.10 K/mcL LAB HEMETOLOGY METHOD 09/28/2024 6:15 PM [facility] Neutrophils Relative 74.3 % LAB HEMETOLOGY METHOD 09/28/2024 6:15 PM [facility] Lymphocytes Relative 19.1 % LAB HEMETOLOGY METHOD 09/28/2024 6:15 PM EST [facility] Monocytes Relative 5.2 % LAB HEMETOLOGY METHOD 09/28/2024 6:15 PM EST [facility] Eosinophils Relative 0.6 % LAB HEMETOLOGY METHOD 09/28/2024 6:15 PM [facility] Basophils Relative 0.6 % LAB HEMETOLOGY METHOD 09/28/2024 6:15 PM EST [facility] Immature Granulocytes Relative 0.2 % LAB HEMETOLOGY METHOD 09/28/2024 6:15 PM [facility] Neutrophils Absolute 4.74 1.50 - 7.00 K/mcL LAB HEMETOLOGY METHOD 09/28/2024 6:15 PM [facility] Lymphocytes Absolute 1.22 1.00 - 5.00 K/mcL LAB HEMETOLOGY METHOD 09/28/2024 6:15 PM EST [facility] Monocytes Absolute 0.33 0.20 - 1.00 K/mcL LAB HEMETOLOGY METHOD 09/28/2024 6:15 PM [facility] Eosinophils Absolute 0.04 0.00 - 0.50 K/mcL LAB HEMETOLOGY METHOD 09/28/2024 6:15 PM [facility] Basophils Absolute 0.04 0.00 - 0.20 K/mcL LAB HEMETOLOGY METHOD 09/28/2024 6:15 PM EST [facility] Immature Granulocytes Absolute 0.01 0.00 - 0.03 K/mcL LAB HEMETOLOGY METHOD 09/28/2024 6:15 PM [facility] Blood Venous blood specimen / Unknown Venipuncture / Unknown 09/28/2024 3:18 PM EST 09/28/2024 3:18 PM EST us Sydnee CHEEMA LAB BLOOD ORDERABLES Final Resu lt [facility] [address] [place] [address], [place] [phone] * Rubella antibody IgG (09/28/2024 3:18 PM EST) [facility] Rubella IgG Quant 36.5 >=10.0 I Unit/mL LAB CHEMISTRY METHOD 09/28/2024 7:03 PM EST [facility] Rubella IgG Antibody Interp Positive Positive LAB CHEMISTRY METHOD 09/28/2024 7:03 PM EST [facility] Blood Venous blood specimen / Unknown Venipuncture / Unknown 09/28/2024 3:18 PM EST 09/28/2024 3:18 PM EST us Sydnee Reynolds [facility] BLOOD ORDERABLES Final Resu lt [facility] [address] [place] [address], [place] [phone] * Type and screen (09/28/2024 3:18 PM EST) [facility] ABO Group A 09/28/2024 7:21 PM EST [facility] Rh Type Negative 09/28/2024 7:21 PM EST [facility] Antibody Screen Negative 09/28/2024 7:21 PM EST [facility] Blood Venous blood specimen / Unknown Venipuncture / Unknown 09/28/2024 3:18 PM EST 09/28/2024 3:18 PM EST us Sydnee CHEEMA LAB BLOOD BANK TEST ORDERABLES Final Result [facility] [address] [place] [address], [place] [phone] * Culture urine (09/28/2024 3:18 PM EST) [facility] Culture, Urine 10,000-49,000 CFU/mL Mixed urogenital mary kay, no uropathogens present. Suggest repeat specimen if clinically indicated. 09/29/2024 10:37 AM EST [facility] Urine Urine specimen obtained by clean catch procedure / Unknown Non-blood Collection / Unknown 09/28/2024 3:18 PM EST 09/28/2024 3:18 PM EST Sydnee Reynolds CNM LAB MICROBIOLOGY - GENERAL ORDE RABLES Final Result Performing Organization Address [facility]/ZIP Co de Phone Number [facility] [address] [place] [address], * Varicella zoster antibody IgG (09/28/2024 3:18 PM EST) Varicella IgG Positive Positive LAB CHEMISTRY METHOD 09/29/2024 8:53 AM EST [facility] Varicella Zoster IgG 5.94 >=1.00 S/CO LAB CHEMISTRY METHOD 09/29/2024 8:53 AM EST [facility] Blood Venous blood specimen / Unknown Venipuncture / Unknown 09/28/2024 3:18 PM EST 09/28/2024 3:18 PM EST Narrative [facility] - 09/29/2024 8:53 AM EST Interpretation >= 1.00 S/CO is considered to be consistent with Immunity Sydnee Reynolds CNM LAB BLOOD ORDERABLES Final Resu lt Performing Organization Address City/[facility]/ZIP Co de Phone Number [facility] [address] [place] [address], * Hemoglobin A1c (09/28/2024 3:18 PM EST) Hemoglobin A1C 4.9 <6.5 % LAB CHEMISTRY METHOD 09/28/2024 8:51 PM EST [facility] Mean Bld Glu Estim. 94 mg/dL LAB CHEMISTRY METHOD 09/28/2024 8:51 PM EST [facility] Blood Venous blood specimen / Unknown Venipuncture / Unknown 09/28/2024 3:18 PM EST 09/28/2024 3:18 PM EST Sydnee Reynolds [facility] BLOOD ORDERABLES Final Resu lt [facility] [address] [place] [address], [place] [phone] * (ABNORMAL) POC , urine manually resulted (09/15/2024 1:14 PM EST) HCG, Ur POC Positive(A ) Negative POC hCG Int QC Pass? Yes Yes Urine Urine specimen obtained by clean catch procedure / Unknown 09/15/2024 1:14 PM EST Mallory Adkins [facility] POINT OF CARE TEST ENTER/ED IT ORDERABLES Final Result from Last 3 Months Insurance [facility] [employer] Care Teams Licensing Director Relationship Specialty Start Date End Date Kary Viera MD [address] [place] [address] , [address] [facility] Physician Associ D/B/A: [facility] [place], [place] PCP - General Internal Medicine 01/12/17
--- OUTSIDE RECORDS SUMMARY | 2024-10-04 16:59 | XMS_ITS | Encounter Summary ---
Author Organization [facility] [place] [address] Care Team Providers Care Dimension Specification Inspector Name Role Phone Kary Viera MD Primary Care Provider Encounter Details Date Type Department Care Team ([facility] Contact Info) Description 09/14/2024 Telephone Obstetrics and Gynecology - [address] [phone] Mel Alcantar, FAN Social History Tobacco Use Types Packs/Day Years [...] care for your loved ones. For example, childcare aide or elderly care for an older adult? [...] What is your living situation? 0 09/15/2024 Comments Unknown Sex and Gender Information Value Date Recorded Sex Assigned at Not on file Legal Sex Female 10:25 AM EST Gender Identity Not on file Sexual Orientation Not on file documented as of this encounter Progress Notes * Mel Alcantar RN - 09/15/2024 8:47 AM EST Spoke with patient. Aware of rescheduled PT appt today. Aware of [place] location with [facility].@ 1pm . Scheduled Intake appt for 09/28/24 @2 pm. Will await note from appt today to determine IP appt with provider. * Mel Alcantar RN - 09/14/2024 4:48 PM EST VM left with rescheduling appt information due to pt last appt at [facility] since 2020. test appt need to be with a provider to re establish care. Appt scheduled with MARILUZ 09/15/24 @ 1pm at the [place] location. documented in this encounter Plan of Treatment Upcoming Encounters Date Type Department Care Team (Late st Contact Info) Description 10/06/2024 10:00 AM EST Ancillary Procedure Maternal Medicine - [address] [phone] 10/27/2024 9:00 AM EDT Routine Obstetrics and Gynecology - [address] [phone] Sydnee Reynolds [address] 11/24/2024 9:00 AM EDT Ancillary Procedure Maternal Medicine - [address] [phone] 11/24/2024 10:00 AM EDT Routine Obstetrics and Gynecology - [address] [phone] Edelmira Astorga MD [address] [place] [address] 12/22/2024 9:15 AM EDT Routine Obstetrics and Gynecology - [address] [phone] Sydnee Reynolds, [address] 01/19/2025 9:00 AM EDT Routine Obstetrics and Gynecology - [address] [phone] Mary Kay Manzano, [address] documented as of this encounter Visit Diagnoses Not on filedocumented in this encounter Care Teams Dimension Specification Inspector Relationship Specialty Start Date End Date Kary Viera MD [address] [facility] , [address] [facility] Physician Associ D/B/A: [facility] AMY Santoro PCP - General Internal Medicine 01/12/17 documented as of this encounter
--- OUTSIDE RECORDS SUMMARY | 2024-10-04 16:59 | XMS_ITS | Encounter Summary ---
Author Organization [facility] [place] [address] Care Team Providers Care Regional Manager Name Role Phone Kary Viera MD Primary Care Provider [phone] Encounter Details Date Type Department Care Team ([facility] st Contact Info) Description 09/29/2024 Telephone Obstetrics and Gynecology - [place] [address] [place] [address] Loretta Zayas MA Social History Tobacco Use Types Packs/Day Years [...] care for your loved ones. For example, early childhood services coordinator or elderly care for an older adult? 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 documented in this encounter Plan of Treatment Upcoming Encounters Date Type Department Care Team (Late st Contact Info) Description 10/06/2024 10:00 AM EST Ancillary Procedure Maternal Medicine - [address] [phone] 10/27/2024 9:00 AM EDT Routine Obstetrics and Gynecology - [address] [phone] Sydnee Reynolds [address] 11/24/2024 9:00 AM EDT Ancillary Procedure Maternal Medicine - [address] [phone] 11/24/2024 10:00 AM EDT Routine Obstetrics and Gynecology - [address] [phone] Edelmira Astorga MD [address] [place] [address] 12/22/2024 9:15 AM EDT Routine Obstetrics and Gynecology - [address] [phone] Sydnee Reynolds [address] 01/19/2025 9:00 AM EDT Routine Obstetrics and Gynecology - [address] [phone] Mary Kay Manzano, [address] documented as of this encounter Visit Diagnoses Not on filedocumented in this encounter Additional Health Concerns Assessment Noted Time PHQ-9 Depression Total Score: 0 09/15/19 25 1:00 PM EST documented as of this encounter Care Teams Regional Manager Relationship Specialty Start Date End Date Kary Viera MD [address] [facility] , [address] [facility] Physician Associ D/B/A: [facility] AMY Santoro PCP - General Internal Medicine 01/12/17 documented as of this encounter
--- OUTSIDE RECORDS SUMMARY | 2024-10-04 16:59 | XMS_ITS | Encounter Summary ---
Author Organization [facility] Address [address] [place] [address] Care Team Providers Care Elevator Pilot Name Role Phone Kary Viera MD Primary Care Provider [phone] Reason for Visit * Reason Comments Possible Encounter Details Date Type Department Care Team ([facility] st Contact Info) Description 09/15/2024 1:00 PM EST Office Visit Obstetrics and Gynecology - [address] [phone] Mallory Adkins, [address] [address] test positive (Primary Dx); HGSIL (high grade squamous intraepithelial lesion) on Pap smear of cervix; Multigravida of advanced maternal age in first trimester Social History Tobacco Use Types Packs/Day Years [...] care for your loved ones. 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 [...] on file documented as of this encounter Last Filed Vital Signs Vital Sign Reading Time Taken Comments Blood Pressure 113/70 09/15/2024 1:10 PM EST Pulse 74 09/15/2024 1:10 PM EST Temperature - - Respiratory Rate 15 09/15/2024 1:10 PM EST Oxygen Saturation - - Inhaled Oxygen Concentration - - Weight 83.3 kg (183 lb 9.6 oz) 09/15/2024 1:10 P M EST Height 162.6 cm (5' 4 ) 09/15/2024 1:10 PM EST Body Mass Index 31.51 09/15/2024 1:10 PM EST documented in this encounter Ordered Prescriptions Prescription Sig Dispense Quantity Refills Last Filled Start Date End Date aspirin 81 mg EC tablet Take 2 tablets (162 mg total) by mouth 1 (one) time each day. 180 each 1 09/29/2024 vit [id number] ( Plus Vitamin-Mineral) 27 mg iron- 1 mg tablet Take 1 tablet by mouth 1 (one) time each day. 90 tablet 3 09/15/2024 documented in this encounter Progress Notes * Mallory Adkins CNM - 09/15/2024 1:00 PM EST CHIEF COMPLAINT: Chief Complaint Patient presents with Possible IDENTIFIER:Ken Parker is a 39 y.o. female HPI: Ken has had a positive test at home. LMP 07/03/2024, sure, normal length and duration, was having regular periods prior to LMP. Unplanned , she and FOB are accepting. Denies any pain or bleeding since LMP. 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 MUSCULOSKELETAL: No joint pain or swelling, back pain, or muscle pain. SKIN: No lesions, rash or itching PSYCH: No sleep disturbance, mood disorder or recent psychosocial stressors. HEMATOLOGY/LYMPHOLOGY No prolonged bleeding, easy bruisability or swollen nodes ENDOCRINE: No cold or heat intolerance, polyuria, polydipsia or goiter. NEURO: No persistent headache, syncope, seizures, weakness or numbness PAST MEDICAL HISTORY: Past Medical History: Diagnosis Date Abnormal Pap smear of cervix DX:Abnormal Pap smear of cervix Anemia Migraine SOCIAL HISTORY: Social History Tobacco Use Smoking status: Never Smokeless tobacco: Never Substance Use Topics Alcohol use: No FAMILY HISTORY: Family History Problem Relation Name Age of Onset Multiple sclerosis Mother Kary Hyperlipidemia Mother Kary Other (Other: gout) Father Breast cancer Maternal Grandmother 60's Stroke Brother Joe age 24 Ovarian cancer Neg Hx Colon cancer Neg Hx Uterine cancer Neg Hx Kidney cancer Neg Hx Prostate cancer Neg Hx ACTIVE MEDICATIONS: No outpatient medications have been marked as taking for the 09/15/24 encounter (Office Visit) with Mallory Adkins CNM. Contraception: none ALLERGIES: No Known Allergies PHYSICAL EXAM: Visit Vitals BP 113/70 Pulse 74 Resp 15 Ht 1.626 m (64 ) Wt 83.3 kg (183 lb 9.6 oz) LMP 07/03/2024 (Exact Date) BMI 31.51 kg/m?? OB Status Smoking Status Never BSA 1.89 m?? LABS / IMAGING: Urine HCG - pos IMPRESSION: 1. test positive 2. HGSIL (high grade squamous intraepithelial lesion) on Pap smear of cervix 3. Multigravida of advanced maternal age in first trimester PLAN: Educated on early , warning signs to report and call system. vitamins prescribed. Will start ASA at 12 weeks RTO for OB workup with RN Mallory Adkins CNM documented in this encounter Plan of Treatment Upcoming Encounters Date Type Department Care Team (Late st Contact Info) Description 10/06/2024 10:00 AM EST Ancillary Procedure Maternal Medicine - [address] [phone] 10/27/2024 9:00 AM EDT Routine Obstetrics and Gynecology - [address] [phone] Sydnee Reynolds CNM [address] [place] [address] 11/24/2024 9:00 AM EDT Ancillary Procedure Maternal Medicine - [address] [phone] 11/24/2024 10:00 AM EDT Routine Obstetrics and Gynecology - [address] [phone] Edelmira Astorga MD [address] [place] [address] 12/22/2024 9:15 AM EDT Routine Obstetrics and Gynecology - [address] [phone] Sydnee Reynolds, [address] 01/19/2025 9:00 AM EDT Routine Obstetrics and Gynecology - [address] [phone] Mary Kay Manzano, [address] documented as of this encounter Procedures Procedure Name Priority Date/Time Associated Diagnosis Comments POC , URINE DIAGNOSTIC Routine 09/15/2024 1:14 PM EST test positive documented in this encounter Results * (ABNORMAL) POC , urine manually resulted (09/15/2024 1:14 PM EST) HCG, Ur POC Positive(A ) Negative POC hCG Int QC Pass? Yes Yes Urine Urine specimen obtained by clean catch procedure / Unknown 09/15/2024 1:14 PM EST Mallory Adkins [facility] POINT OF CARE TEST ENTER/ED IT ORDERABLES Final Result documented in this encounter Visit Diagnoses Diagnosis test positive- Primary examination or test, positive result HGSIL (high grade squamous intraepithelial lesion) on Pap smear of cervix Multigravida of advanced maternal age in first trimester documented in this encounter Discontinued Medications Medication Sig Discontinue Reason Start Date End Da te rho,D, immune globulin (HyperRHO S/D) 1,500 unit (300 mcg) syringe injection Inject 1,500 Units into the muscle Once. 09/15/2024 documented as of this encounter Additional Health Concerns Assessment Noted Time PHQ-9 Depression Total Score: 0 09/15/19 25 1:00 PM EST documented as of this encounter Care Teams Elevator Pilot Relationship Specialty Start Date End Date Kary Viera MD [address] [place] [address] , [address] [facility] Physician Associ D/B/A: [facility] Internal Medicine AMY Santoro PCP - General Internal Medicine 01/12/17 documented as of this encounter
--- OUTSIDE RECORDS SUMMARY | 2024-10-04 16:59 | XMS_ITS | Encounter Summary ---
Author Organization [facility] Address [address] [place] [address] Care Team Providers Care Assistant Manager Trainee Name Role Phone Kary Viera MD Primary Care Provider [phone] Reason for Referral * Imaging (Routine) - Pending Review Specialty Diagnoses / Procedures Referred By Sridevi [email or web address] Referred To Contact Radiology Diagnoses Supervision of high risk in first trimester Procedures US OB Detailed Single or First Gestation Roe Morrison CNM [address] [place] [address] Phone: tel: fax: [address] Phone: tel: Referral ID Status Reason Start Date Expiration Date V isits Requested Visits Authorized [id number] Pending Review 09/29/2024 09/29/2025 1 1 Reason for Visit * Reason Comments Initial Visit Encounter Details Date Type Department Care Team ([facility] st Contact Info) Description 09/29/2024 9:00 AM EST Initial Obstetrics and Gynecology - [address] [phone] Roe Morrison CNM [address] [place] [address] GA: 12w4d Social History Tobacco Use Types Packs/Day Years [...] for your loved ones. For example, child caregiver or elderly care for an older adult? 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 Thepatient is not nervous/anxious. Objective Physical Exam Constitutional: [...] Weight: 83.1 kg (183 lb 3.2 oz) Parmele Depression Scale: In the Past 7 Days [...] harming myself has occurred to me.: Never Parmele Depression Scale Total: 1 PN Check List: [...] - Pap smear Above orders F/u prn * Britney Wells MA - 09/29/2024 9:00 AM EST Parmele Depression Scale: In the Past 7 Days [...] harming myself has occurred to me.: Never Parmele Depression Scale Total: 1 documented in this encounter Plan of Treatment Upcoming Encounters Date Type Department Care Team (Late st Contact Info) Description 10/06/2024 10:00 AM EST Ancillary Procedure Maternal Medicine - [address] AMY Roberts [phone] 10/27/2024 9:00 AM EDT Routine Obstetrics and Gynecology - [address] [phone] Sydnee Reynolds, [address] 11/24/2024 9:00 AM EDT Ancillary Procedure Maternal Medicine - [address] [phone] 11/24/2024 10:00 AM EDT Routine Obstetrics and Gynecology - [address] [phone] Edelmira Astorga MD [address] [place] [address] 12/22/2024 9:15 AM EDT Routine Obstetrics and Gynecology - [address] [phone] Sydnee Reynolds, [address] 01/19/2025 9:00 AM EDT Routine Obstetrics and Gynecology - [address] [phone] Mary Kay Manzano, [address] Scheduled Orders Name Type Priority Associated Diagnoses Orde r Schedule US OB Detailed Single or First Gestation Imaging Routine Supervision of high risk in first trimester Expected: 09/29/2024, Expires: 09/29/2025 documented as of this encounter Procedures Procedure Name Priority Date/Time Associated Diagnosis Comments HPV WITH REFLEX GENOTYPE Routine 09/29/2024 9:36 AM EST Screening for malignant neoplasm of cervix HGSIL (high grade squamous intraepithelial lesion) on Pap smear of cervix CHLAMYDIA TRACHOMATIS AND NEISSERIA GONORRHOEAE PCR Routine 09/29/2024 9:36 AM EST Venereal disease screening PAP SMEAR Routine 09/29/2024 9:36 AM EST Screening for malignant neoplasm of cervix HGSIL (high grade squamous intraepithelial lesion) on Pap smear of cervix documented in this encounter Results * HPV with reflex genotype (09/29/2024 9:36 AM EST) HPV Negative Negative LAB MICROBIOLOGY METHOD 10/02/2024 3:08 PM EST [facility] Broom Cervix uteri structure / Unknown 09/29/2024 9:36 AM EST 10/02/2024 6:20 AM EST us Roe Morrison [facility] MOLECULAR DIAGNOSTICS ORD ERABLES Final Result [facility] [address] [place] [address], * (ABNORMAL) Pap smear (09/29/2024 9:36 AM EST) Pathologist [facility] Interpretation Atypical squamous cells of undetermined significance(A) 10/04/2024 4:50 PM [facility] Clinical Information Hgsil 2019 10/04/2024 4:50 PM [facility] General Categorization Epithelial cell abnormality, see interpretation 10/04/2024 4:50 PM [facility] Specimen Adequacy Satisfactory for evaluation, endocervical/tra nsformation zone component present 10/04/2024 4:50 PM [facility] Pap Methodology Liquid Based Pap Test 10/04/2024 4:50 PM [facility] Disclaimer The Pap test is a screening test which carries an inherent false negative rate. These test results should be correlated with the patient's clinical findings and history. This Pap test was processed using an automated screening system. Technical cytopathology services provided by [facility], at [address] [place] [address] (CLIA # [id number]/Marisol Espinoza MD, [employer].) 10/04/2024 4:50 PM EST [facility] Console Pap Interpretation Reported 10/04/2024 4:50 PM [facility] Broom Cervix uteri structure / Unknown 09/29/2024 9:36 AM EST 09/29/2024 9:36 AM EST Comment:Hgsil 2019 Roe Morrison CNM LAB CYTOLOGY ORDERABLES Final Result Performing Organization Address City/[facility]/ZIP Co de Phone Number [facility] [address] [place] [address], [place] [phone] * Chlamydia trachomatis and Neisseria gonorrhoeae molecular study (09/29/2024 9:36 AM EST) Neisseria gonorrhoeae PCR Negative Negative LAB MOLECULAR DIAGNOSTICS METHOD 09/29/2024 4:07 PM [facility] Chlamydia trachomatis PCR Negative Negative LAB MOLECULAR DIAGNOSTICS METHOD 09/29/2024 4:07 PM [facility] Swab Vaginal structure / Unknown Non-blood Collection / Unknown 09/29/2024 9:36 AM EST 09/29/2024 9:36 AM EST Roe Morrison CNM LAB MICROBIOLOGY - GENERAL OR DERABLES Final Result [facility] [address] [place] [address], [place] [phone] documented in this encounter Visit Diagnoses Diagnosis Supervision of high risk in first trimester- Primary 12 weeks gestation of Venereal disease screening Screening examination for venereal disease Screening for malignant neoplasm of cervix Screening for malignant neoplasm of the cervix Encounter for screening for maternal depression HGSIL (high grade squamous intraepithelial lesion) on Pap smear of cervix in first trimester with history of ectopic documented in this encounter Orders Behavioral Health Services Count Last Ordered D ate First Ordered Date HEALTH AND BEHAVIORAL ASSESSMENT 1 09/29/19 25 documented in this encounter Additional Health Concerns Assessment Noted Time PHQ-9 Depression Total Score: 0 09/15/19 25 1:00 PM EST documented as of this encounter Care Teams Assistant Manager Trainee Relationship Specialty Start Date End Date Kary Viera MD 2 [facility] , [address] [facility] Physician Associ D/B/A: [facility] AMY Santoro PCP - General Internal Medicine 01/12/17 documented as of this encounter
--- OUTSIDE RECORDS SUMMARY | 2024-10-04 16:59 | XMS_ITS | Encounter Summary ---
Author Organization [facility] Address [address] [place] [address] Care Team Providers Care Credit Review Manager Name Role Phone Kary Viera MD Primary Care Provider [phone] Reason for Referral * Imaging (Routine) - Pending Review Specialty Diagnoses / Procedures Referred By Sridevi mcduffie Referred To Contact Radiology Diagnoses Blood type, Rh negative Multigravida of advanced maternal age in first trimester Bariatric surgery status Obesity complicating childbirth care, subsequent in first trimester Procedures US OB Less 14 Wks Nuchal Measurement Sydnee Reynolds CNM [address] [place] [address] Phone: tel: fax: [address] Phone: tel: Referral ID Status Reason Start Date Expiration Date V isits Requested Visits Authorized [id number] Pending Review 09/28/2024 09/28/2025 1 1 Reason for Visit * Reason Comments nurse Encounter Details Date Type Department Care Team (Latest Contact Info) Description 09/28/2024 2:00 PM EST Clinical Support Obstetrics and Gynecology [address] [phone] Blood type, Rh negative (Primary Dx); Multigravida of advanced maternal age in first trimester; Bariatric surgery status; Obesity complicating childbirth; care, subsequent in first trimester; Chronic back pain, unspecified back location, unspecified back pain laterality; in first trimester with history of ectopic Social History Tobacco Use Types Packs/Day Years [...] for your loved ones. For example, child attendant or elderly care for an older adult? 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[employer] Not on file Not on file Not on file documented as of this encounter Last Filed Vital Signs Vital Sign Reading Time Taken Comments Blood Pressure 110/64 09/28/2024 2:01 PM EST Pulse 81 09/28/2024 2:01 PM EST Temperature - - Respiratory Rate - - Oxygen Saturation - - Inhaled Oxygen Concentration - - Weight 83 kg (183 lb) 09/28/2024 2:01 PM EST Height 162.6 cm (5' 4 ) 09/28/2024 2:01 PM EST Body Mass Index 31.41 09/28/2024 2:01 PM EST documented in this encounter Ordered Prescriptions Prescription Sig Dispense Quantity Refills Last Filled Start Date End Date vitamin iron fum-folic acid 27-0.8 mg per tablet Take 1 tablet by mouth 1 (one) time each day. 90 each 3 09/28/2024 09/28/2025 documented in this encounter Progress Notes * Mel Alcantar RN - 09/28/2024 2:00 PM EST MEDICATIONS SAFE TO TAKE IN Caution: do not exceed manufacturers recommendations Allergies: Benadryl (diphenhydramine) Claritin Zyrtec Cold and Flu: Acetaminophen (Tylenol) Tylenol Cold (not multi-symptom) Warm salt/water gargle Saline nasal drops/spray Chlor-Trimenton Robitussin DM Triaminic cough Vicks Cough Syrup Cough drops Cepacol Lozenges (for sore throat) Congestion: Saline nasal drops/spray Dristan nasal spray Constipation: Metamucil, Citrucel, Benefiber Colace, Dulcolax Milk of Magnesia Miralax Diarrhea: Imodium Kaopectate First aid ointment: Bacitracin Neosporin Polysporin Gas: Simethicone Gas X Mylicon Pha GERD/Heartburn/Indigestion: Maalox Mylanta Tums [place] Tagamet Pepcid Zantac Headache: Acetaminophen (Tylenol) Excedrin Tension headache (tylenol 500mg and caffeine 65mg) Insomnia: Unisom Sleep tabs Benadryl Hemorrhoids: Preparation H Anusol HC Tucks Cortaid Witch Vida Nausea and vomiting: Sea Bands/Biobands Rodrigo or candied or crystallized rodrigo Vitamin B6 50mg tablets (or half of a 100 mg tablet) Vitamin B6 50mg 3 times a day with Unisom sleep tabs 1/2 tab 3 times a day (may cause drowsiness) Dramamine (may cause drowsiness) Rashes: Hydrocortisone 1% cream or ointment Caladryl lotion or cream Benadryl cream Oatmeal bath (Aveeno) Yeast Infection: Monistat or Terazol (do not insert applicator too far) Clotrimazole 1% * Mel Alcantar RN - 09/28/2024 2:00 PM EST Ken Parker is a 39 y.o. old female at 12w3d. This is Unplanned. The patient feels happy about the . The FOB is happy. This istheir first child together. LULU Ewing has 4 other grown children he has contact with. Patient's last menstrual period was 07/03/2024 (exact date).., which would make her currently [id number] an Estimated Date of Delivery: 04/09/25. She is certain of her date. An ultrasound has not been ordered to confirm dating Patient has significant history of: SAVD x4 uncomplicated, ectopic 2017 , Gastric sleeve 2021, AMA,HGSIL,anemia Obesity ,RH Neg, migraines. Chronic back pain [...] to the above questions, is this for zoroastrianism reasons? No Do you know what your [...] nausea and/or vomiting, pain on urination, or vaginaldischarge or vaginal bleeding? 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 The patient was also advised that genetic testing may not be covered by all insurances. The patients states that they understand this information. The patient states that she has had the genetic screening for Cystic Fibrosis and Sickle Cell Screendone in the past during a previous . Results were NEG. The patient has agreed that she does want genetic testing for Horizon 14 The following Labs have been ordered: Obstetric Panel, HgA1c, Early Glucose Screen, HIV with verbalConsent, Hepatitis C, Varicella titer, Urine Culture, UDS, [...] Mel Alcantar RN 09/28/24 2:17 PM EST documented in this encounter Plan of Treatment Upcoming Encounters Date Type Department Care Team (Late st Contact Info) Description 10/06/2024 10:00 AM EST Ancillary Procedure Maternal Medicine - [address] [phone] 10/27/2024 9:00 AM EDT Routine Obstetrics and Gynecology - [address] [phone] Sydnee Reynolds CNM [address] [place] [phone] 11/24/2024 9:00 AM EDT Ancillary Procedure Maternal Medicine - [address] [phone] 11/24/2024 10:00 AM EDT Routine Obstetrics and Gynecology - [address] [phone] Edelmira Astorga MD [address] [place], [place] 12/22/2024 9:15 AM EDT Routine Obstetrics and Gynecology - [address] [phone] Sydnee Reynolds, [address] 01/19/2025 9:00 AM EDT Routine Obstetrics and Gynecology - [address] [phone] Mary Kay Manzano, [address] Scheduled Orders Name Type Priority Associated Diagnoses Orde r Schedule US OB Less 14 Wks Nuchal Measurement Imaging Routine Blood type, Rh negative Multigravida of advanced maternal age in first trimester Bariatric surgery status Obesity complicating childbirth care, subsequent in first trimester Expected: 09/28/2024, Expires: 10/09/2024 documented as of this encounter Results * Hemoglobin A1c (09/28/2024 3:18 PM EST) Hemoglobin A1C 4.9 <6.5 % LAB CHEMISTRY METHOD 09/28/2024 8:51 PM EST [facility] Mean Bld Glu Estim. 94 mg/dL LAB CHEMISTRY METHOD 09/28/2024 8:51 PM EST [facility] Blood Venous blood specimen / Unknown Venipuncture / Unknown 09/28/2024 3:18 PM EST 09/28/2024 3:18 PM EST Sydnee CHEEMA LAB BLOOD ORDERABLES Final Resu lt Performing Organization Address City/[facility]/ZIP Co de Phone Number [facility] [address] [place] [address], [place] [phone] * Type and screen (09/28/2024 3:18 PM EST) ABO Group A 09/28/2024 7:21 PM EST [facility] Rh Type Negative 09/28/2024 7:21 PM EST [facility] Antibody Screen Negative 09/28/2024 7:21 PM EST [facility] Blood Venous blood specimen / Unknown Venipuncture / Unknown 09/28/2024 3:18 PM EST 09/28/2024 3:18 PM EST Sydnee Reynolds [facility] BLOOD BANK TEST ORDERABLES Final Result Performing Organization Address [facility] Co de Phone Number [facility] [address] [place] [address], [place] [phone] * Treponema pallidum antibody with reflex to RPR and particle agglutination (09/28/2024 3:18 PM EST) T. Pallidum Antibodies Negative Negative LAB CHEMISTRY METHOD 09/28/2024 7:05 PM EST [facility] Blood Venous blood specimen / Unknown Venipuncture / Unknown 09/28/2024 3:18 PM EST 09/28/2024 3:18 PM EST Sydnee Reynolds [facility] BLOOD ORDERABLES Final Resu lt Performing Organization Address City/[facility]/ZIP Co de Phone Number [facility] [address] [place] [address], [place] [phone] * Rubella antibody IgG (09/28/2024 3:18 PM EST) Pathologist [facility] Rubella IgG Quant 36.5 >=10.0 I Unit/mL LAB CHEMISTRY METHOD 09/28/2024 7:03 PM EST [facility] Rubella IgG Antibody Interp Positive Positive LAB CHEMISTRY METHOD 09/28/2024 7:03 PM EST [facility] Blood Venous blood specimen / Unknown Venipuncture / Unknown 09/28/2024 3:18 PM EST 09/28/2024 3:18 PM EST us Sydnee CHEEMA LAB BLOOD ORDERABLES Final Resu lt Performing Organization Address [facility]/ZIP Co de Phone Number [facility] [address] [place] [address], [place] [phone] * HIV 1,2 antibody, p24 antigen with reflex to differentiation (09/28/2024 3:18 PM EST) [facility] HIV Combo AB/AG Negative Negative LAB CHEMISTRY METHOD 09/28/2024 7:32 PM EST [facility] Blood Venous blood specimen / Unknown Venipuncture / Unknown 09/28/2024 3:18 PM EST 09/28/2024 3:18 PM EST Narrative [facility] - 09/28/2024 7:32 PM [...] ORDERABLES Final Resu lt Performing Organization Address [facility]/ZIP Co de Phone Number [facility] [address] [place] [address], [place] [phone] * Hepatitis C antibody (09/28/2024 3:18 PM EST) Pathologist [facility] Hepatitis C Antibody Negative Negative LAB CHEMISTRY METHOD 09/28/2024 7:31 PM EST [facility] Blood Venous blood specimen / Unknown Venipuncture / Unknown 09/28/2024 3:18 PM EST 09/28/2024 3:18 PM EST Sydnee Reynolds [facility] BLOOD ORDERABLES Final Resu lt [facility] [address] [place] [address], [place] [phone] * Drug abuse screen expanded with reflex confirmation, urine (09/28/2024 3:18 PM EST) [facility] Amphetamine Screen, Ur Negative Negative LAB CHEMISTRY METHOD 09/28/2024 5:32 PM [facility] Comment:Certain OTC medicati ons containing ephedrine, phenylephrine, pseudoephedrine and phenylpropanolamine can cause false positive results. Barbiturate Screen, Ur Negative Negative LAB CHEMISTRY METHOD 09/28/2024 5:32 PM [facility] Benzodiazepine Screen, Ur Negative Negative LAB CHEMISTRY METHOD 09/28/2024 5:32 PM [facility] Cocaine Screen, Ur Negative Negative LAB CHEMISTRY METHOD 09/28/2024 5:32 PM [facility] Opiate Screen, Ur Negative Negative LAB CHEMISTRY METHOD 09/28/2024 5:32 PM [facility] Cannabinoid (THC) Screen, Ur Negative Negative LAB CHEMISTRY METHOD 09/28/2024 5:32 PM [facility] Comment:Specimens from patie nts taking pantoprazole sodium (Protonix) have been shown to produce false positive results. Fentanyl, Ur Negative Negative LAB CHEMISTRY METHOD 09/28/2024 5:32 PM EST [facility] Oxycodone Screen, Ur Negative Negative LAB CHEMISTRY METHOD 09/28/2024 5:32 PM [facility] Urine Urine specimen obtained by clean catch procedure / Unknown Non-blood Collection / Unknown 09/28/2024 3:18 PM EST 09/28/2024 3:18 PM EST Narrative [facility] - 09/28/2024 5:32 PM [...] AUTOMATICALLY SENT FOR ALTERNATE METHOD CONFIRMATION* Sydnee Reynolds [facility] URINE ORDERABLES Final Resu lt Performing Organization Address [facility]/ZIP Co de Phone Number [facility] [address] [place] [address], [place] [phone] * Culture urine (09/28/2024 3:18 PM EST) Culture, Urine 10,000-49,000 CFU/mL Mixed urogenital mary kay, no uropathogens present. Suggest repeat specimen if clinically indicated. 09/29/2024 10:37 AM EST [facility] Urine Urine specimen obtained by clean catch procedure / Unknown Non-blood Collection / Unknown 09/28/2024 3:18 PM EST 09/28/2024 3:18 PM EST Sydnee CHEEMA LAB MICROBIOLOGY - GENERAL ORDE RABLES Final Result Performing Organization Address [facility]/ZIP Co de Phone Number [facility] [address] [place] [address], [place] [phone] * Hepatitis B surface antigen with reflex to confirmation (09/28/2024 3:18 PM EST) Hepatitis B Surface Ag Negative Negative LAB CHEMISTRY METHOD 09/28/2024 7:03 PM EST [facility] Blood Venous blood specimen / Unknown Venipuncture / Unknown 09/28/2024 3:18 PM EST 09/28/2024 3:18 PM EST [facility] - 09/28/2024 7:03 PM EST Over the counter supplements containing high doses of biotin may interfere with this assay. ??If interference is suspected, patients shoud be retested after refraining from biotin supplements for 72 hours. Sydnee CHEEMA LAB BLOOD ORDERABLES Final Resu lt Performing Organization Address [facility] Co de Phone Number [facility] [address] [place] [address], [place] [phone] * Varicella zoster antibody IgG (09/28/2024 3:18 PM EST) Pathologist [facility] Varicella IgG Positive Positive LAB CHEMISTRY METHOD 09/29/2024 8:53 AM EST [facility] Varicella Zoster IgG 5.94 >=1.00 S/CO LAB CHEMISTRY METHOD 09/29/2024 8:53 AM EST [facility] Blood Venous blood specimen / Unknown Venipuncture / Unknown 09/28/2024 3:18 PM EST 09/28/2024 3:18 PM EST [facility] - 09/29/2024 8:53 AM EST Interpretation >= 1.00 S/CO is considered to be consistent with Immunity us Sydnee Reynolds [facility] BLOOD ORDERABLES Final Resu lt Performing Organization Address [facility]/ZIP Co de Phone Number [facility] [address] [place] [address], [place] [phone] documented in this encounter Visit Diagnoses Diagnosis Blood type, Rh negative- Primary Multigravida of advanced maternal age in first trimester Bariatric surgery status Obesity complicating childbirth care, subsequent in first trimester Chronic back pain, unspecified back location, unspecified back pain laterality in first trimester with history of ectopic documented in this encounter Discontinued Medications Medication Sig Discontinue Reason Start Date End Da te oxycodone HCl/aspirin (OXYCODONE-ASPIRIN ORAL) Take by mouth. 09/28/2024 PNV no.95/ferrous fum/folic ac ( ORAL) Take 1 Tab by mouth daily. 09/28/2024 docusate sodium (COLACE) 100 mg capsule Take 1 Cap by mouth daily. 09/28/2024 medroxyPROGESTERone 150 mg/mL injection Inject 1 mL into the muscle Every 3 Months. 09/28/2024 nystatin-triamcinolone (MYCOLOG II) ointment Apply a thin layer to affected area twice daily x 2 weeks, then daily until resolved 09/28/2024 documented as of this encounter Orders Lab Orders Without Results Count Last Ordered D ate First Ordered Date MISCELLANEOUS LAB TEST 1 09/28/2024 documented in this encounter Additional Health Concerns Assessment Noted Time PHQ-9 Depression Total Score: 0 09/15/19 25 1:00 PM EST documented as of this encounter Care Teams Credit Review Manager Relationship Specialty Start Date End Date Kary Viera MD [address] [place] [address] , [address] [facility] AMY Santoro PCP - General Internal Medicine 01/12/17 documented as of this encounter
== END 2024-10-04 13:48 | disposition home or self-care (01) ==
LOC: HO.LAB 13:47
PROVIDERS: PCP Internal Medicine; Visit Provider Internal Medicine
DX: R09.89 Other specified symptoms and signs involving the circulatory and respiratory systems (principal)
CPT/HCPCS: 0241U

== ENCOUNTER 2025-08-06 16:48 | Outpatient (AMB) | payer OTHER, SELFPAY ==
--- NOTE | 2025-08-06 16:51 | MHC.PC.OV ---
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: No Accompanied by: Self / Same As Patient Allergies No Known Allergies Allergy (Verified 08/06/25 17:01) Medication List - Last Reconciled 08/06/25 by Kary Viera MD hydrocortisone 1% (Anti-Itch (hydrocortisone)) 1 appl topical TID PRN 2 weeks Tobacco use date assessed: 08/06/25 Dental Screening Dental Screen Date: 08/06/25 Did you have a dental visit in the last 12 months?: Yes Did you have a dental problem in the last 6 months where you did not have access to dental care?: No Was dental information given to patient?: Patient has dentist HPI HPI Comments History of Present Illness Details This is a 40-year-old female that comes to get cleared to go back to work. Denies any chest pain or shortness on breath. Has full active range of motion. She complains of hair loss that started few months ago. Will be referred to Dermatology. [facility] Medical History (Updated 08/06/25 @ 17:11 by Kary Viera MD) FH: bariatric surgery Needle stick, hypodermic, accidental Back pain Liver fibrosis GERD (gastroesophageal reflux disease) COVID-19 vaccine series completed BMI 39.0-39.9,adult Morbid obesity Vitamin B12 deficiency Vitamin A deficiency Vitamin B1 deficiency Adjustment disorder, unspecified H. pylori infection Urinary tract infection Chronic back pain URI (upper respiratory infection) Hypovitaminosis D Iron deficiency anemia Surgical History H/O LEEP S/P laparoscopic sleeve gastrectomy H/O umbilical hernia repair Family History Father Dyslipidemia Gout Mother Polyarthralgia Multiple sclerosis Sister No problems noted. Brother Stroke Brother No problems noted. Brother No problems noted. Maternal Grandmother Breast cancer, Onset Age: 55 Social History Housing: Apartment Are you a primary physician locums urgent care to a significant other at home: No Do you presently have visiting nurse or other home services: No Alcohol intake: current Alcohol intake frequency: holidays/special occasions only Alcohol type: beer Patient Tobacco Use Status: Never used Tobacco e-Cigarette/Vaping Use: Never Used Second Hand Smoke Exposure: No service: No Current occupational status: employed Cognitive needs: No Hearing needs: No Vision needs: No Questionnaire PHQ-9 Over the last 2 weeks, how often have you been bothered by any of the following problems? 1. Little interest or pleasure in doing things: several days 2. Feeling down, depressed, or hopeless: not at all 3. Trouble falling or staying asleep, or sleeping too much: several days 4. Feeling tired or having little energy: several days 5. Poor appetite or overeating: not at all 6. Feeling bad about yourself - or that you are a failure or have let yourself or your family down: not at all 7. Trouble concentrating on things, such as reading the newspaper or watching television: several days 8. Moving or speaking so slowly that other people could have noticed. Or the opposite - being so fidgety or restless that you have been moving around a lot more than usual: not at all 9. Thoughts that you would be better off or of hurting yourself in some way: not at all Total score: 4 Depression Screening Interpretation: Positive Depression Screening Follow-up: Existing condition and Follow-up Visit Requested Depression Screening Done: Yes 89207 - PHQ-9 Billing: Yes Source: Developed by Drs. Onofre Morrell, Katey Walls, Fco Mckinnon and colleagues, with an educational hunter from [employer]. Thrive Questionnaire Date Thrive assessed: 08/06/25 I am a: Patient What is your living situation today?: I have a steady place to live Within the past 12 months, did the food you bought not last and you didn't have the money to get more?: Never true Within the past 12 months, did you worry whether your food would run out before you got money to buy more?: Never true Do you have trouble paying for medicines?: No Do you have trouble getting transportation to medical appointments?: No Do you have trouble paying your heating and electricity bill?: No Do you have trouble taking care of your child, family member or friend?: No Do you have trouble with day-to-day activities such as bathing, preparing meals, shopping, managing finances, etc.?: No Are you currently unemployed and looking for a job?: No Are you interested in more education?: No Please select the resources that you would like help with: None Currently or been in a relationship where the following occur: No concerns reported THRIVE Score: 0 AUDIT C Alcohol Use Questionnaire (AUDIT-C) 1. How often do you have a drink containing alcohol?: Never 3. How often do you have six or more drinks on one occasion?: Never Total Score: 0 Score Reviewed/Action Taken: No MAURILIO-7 AMB Questionnaire MAURILIO-7 Date MAURILIO - 7 assessed: 08/06/25 Feeling nervous, anxious, or on edge: 0 = Not at all Not being able to stop or control worryin = Not at all Worrying too much about different things: 0 = Not at all Trouble relaxin = Not at all Being so restless that it is hard to sit still: 0 = Not at all Becoming easily annoyed or irritable: 0 = Not at all Feeling afraid as if something awful might happen: 0 = Not at all Total MAURILIO-7 score (0-4 normal; 5-9 mild; 10-14 moderate; 15-21 severe): 0 Source: Developed by Drs. Onofre Morrell, Katey Walls, Fco Mckinnon and colleagues, with an educational hunter from [employer]. MAURILIO-7 Assessment Billing MAURILIO-7 Assessment Tool: MAURILIO-7 Assessment 51479 Review of Systems Const All systems reviewed & are unremarkable except as noted in HPI and below Card Denies chest pain at rest, Denies chest pain with activity, Denies edema, Denies irregular heart rhythm, Denies claudication, Denies dyspnea, Denies dyspnea on exertion, Denies orthopnea, Denies paroxysmal nocturnal dyspnea and Denies slow heart rate Resp Denies cough, Denies dyspnea and Denies dyspnea on exertion GI Denies abdominal pain, Denies change in bowel habits, Denies excessive flatus, Denies nausea and Denies vomiting Denies urinary incontinence, Denies urinary hesitancy and Denies urinary urgency Musc Denies atrophy, Denies deformity and Denies limited range of motion Physical exam (Primary Care) Vital Signs: Last Vital Signs Temp 97.4 F 08/06/25 16:52 Pulse 99 08/06/25 16:52 BP 136/80 08/06/25 16:52 Pulse Ox 100 08/06/25 16:52 Oxygen Delivery Method Room Air 08/06/25 16:52 BMI result Body Mass Index 31.8 Tobacco/Smoking Status: Tobacco use Status Tobacco use date assessed 08/06/25 08/06/25 16:57 Patient Tobacco Use Status Never used Tobacco 08/06/25 16:57 e-Cigarette/Vaping Use Never Used 08/06/25 16:57 PHQ-9: PHQ-9 Score PHQ-9: Total score 4 08/06/25 16:57 Depression Screening Interpretation: Positive Depression Screening Follow-up: Existing condition and Follow-up Visit Requested Thrive Assessment: Date of Thrive Assessment Date Thrive assessed 08/06/25 08/06/25 16:57 Currently or been in a relationship where the following occur: No concerns reported Resp Effort & Inspection: normal respiratory effort Auscultation: clear to auscultation bilaterally Cardio Jugular venous distension: no JVD Rate: regular rate Rhythm: regular rhythm Heart sounds: S1 normal heart sound present and S2 normal heart sound present Extrem General: Yes full ROM Coding Level of Care Code Est Pt Level 3 (42952) Diagnoses Hair loss L65.9 Additional Codes MAURILIO-7 Assessment Billing - MAURILIO-7 Assessment Tool: MAURILIO-7 Assessment 50895 ([id number]) PHQ-9 - 77707 - PHQ-9 Billing: Yes ([id number]) Time Spent (min) 19 Assessment & Plan Assessment & Plan (1) Hair loss: Code(s): L65.9 - Nonscarring hair loss, unspecified Category: Medical Plan Referred to dermatology. Labs ordered. Patient is medically cleared to go back to work from maternity leave. Orders: Orders Complete Blood Count Auto Diff Today D64.9 - Anemia, unspecified IRON PROFILE Today D64.9 - Anemia, unspecified Vitamin D 25-OH Total Today E55.9 - Vitamin D deficiency, unspecified Thyroid Stimulating Hormone Today L65.9 - Nonscarring hair loss, unspecified Vitamin B12 and Folate Today E53.8 - Deficiency of other specified B group vitamins Comprehensive Met. Panel Today L65.9 - Nonscarring hair loss, unspecified Referrals Dermatology Referral L65.9 - Nonscarring hair loss, unspecified
[2025-08-06 16:52] VITALS: BP 136/80; PULSE 99; TEMP 36.3; O2SAT 100; BMI 31.8
--- OUTSIDE RECORDS SUMMARY | 2025-08-06 18:05 | XMS_ITS | Clinical Summary ---
Author Organization [facility] [address] [place] [address] [place] [phone] Phone Care Team Providers Care Machine Gun Mechanic Name Role Phone Kary Viera MD Primary Care Provider [phone] Allergies No known active allergies Medications vit no.[id number] ( Plus Vitamin-Mineral) 27 mg iron- 1 mg tablet Take 1 tablet by mouth 1 (one) time each day. 90 tablet 3 09/15/2024 Active ferrous gluconate (FERGON) 324 mg (38 mg iron) tablet Take 1 tablet (324 mg total) by mouth 1 (one) time each day. 90 tablet 1 11/24/2024 Active norethindrone-et hinyl estradiol (ORTHO-NOVUM 1-35 TAB,NORTREL 1-35 TAB) 1-35 mg-mcg per tablet Take 1 tablet by mouth 1 (one) time each day. 84 tablet 1 05/03/2025 Active Active Problems Problem Noted Date Diagnosed Date H/O umbilical hernia repair 09/29/2024 Bariatric surgery status 09/28/2024 Overview (09/28/2024): 2021 gastric sleeve Vitamin D deficiency 06/05/2013 Vitamin B12 deficiency 06/05/2013 Resolved Problems Problem Noted Date Diagnosed Date Resolved Date IUGR (intrauterine growth re striction) affecting care of mother, third trimester, fetus 1 03/16/2025 05/03/2025 IUGR (intrauterine growth re striction) affecting care of mother 03/16/2025 05/03/2025 growth restriction antepartum 02/16/2025 05/03/2025 Overview (02/16/2025): 02/16/2025 - EFW 5% AC 3%tile. NEW DEFINITION: FGR = AC<10% or EFW <10% Detailed US if <35 weeks and not previously done Growth US Q 2-4 weeks per MFM- 02/16/2025 per Marcello Tolliver BPP with dopplers in 1 week and growth in 2 weeks. Twice weekly testing- NST Umbilical artery Dopplers as indicated by [facility] Deliver at [facility] 38-39 6/7 weeks if isolated without comorbidity Transfer to [facility] with plan for early delivery for: EFW <1800g at time of delivery recommendation EFW <3rd% Gestational age <35 weeks at time of recommended delivery anomalies Severe polyhydramnios (due to resuscitation needs) Decreased movement 01/28/2025 Blood type, Rh negative 09/28/2024 09/2 12/2024 Overview (03/06/2025): Panorama RH positive - needs rhogam- given 01/19/2025 Anemia in , third trimester 09/28/2024 05/03/2025 Overview (03/06/2025): Lab Results Component Value Date WBC 8.0 01/19/2025 HGB 7.9 (L) 01/19/2025 HCT 28.0 (L) 01/19/2025 MCV 65.9 (L) 01/19/2025 PLT 274 01/19/2025 01/22/2025 Referral to hematology ordered. Hasn't seen hematology- hasn't repeated her CBC- advised to do so today. 03/06/2025 Obesity complicating childbirth 09/28/2024 05/03/2025 Overview (09/28/2024): HgbA1C and 1 hour GTT [...] BMI of 50 by 28wks transfer to [facility] DVT prophylaxis- Lovenox if CS and BMI >35 Chronic back pain 09/28/2024 05/03/2025 Overview (09/28/2024): Rx for Oxycodone prn. Advised to stop taking in Multigravida of advanced mat ernal age in second trimester 09/15/2024 05/03/2025 Overview (09/15/2024): ASA 162 mg daily at 12w through delivery Referral for NIPT if desired Detailed US 3rd trimester growth US if maternal age 40 or greater Weekly NST at 36 weeks Offer delivery at 39 weeks if maternal age 40 or greater Supervision of other normal , antepartum 09/15/2024 05/03/2025 Overview (02/15/2025): 1. [facility] [address] [place] [phone] ([phone]) 2. Delivery site: [facility] 3. Mobile Mommas: No 4. Dating criteria: LMP 5. Blood type: A- Rhogam 01/19 6. Genetic screening: Date: Result: Panorama: Low risk female Horizon: neg Nuchal: Scheduled 10/06/24 @ 10am Survey: MSAFP: 10/27/2024 declines 6. GBS: Date: 7. FOB name: Gildardo 8. Plans A. Epidural or other pain management -open B. Labor support identified - Gildardo Chanel Tdap - Date: Flu - Date: declines D. Breast or Bottle feed: Undecided E. Baby's name - F. Circumcision -? 9. Hospital Course: Abnormal Pap smear of cervix 09/06/2024 09/15/2024 Overview (09/15/2024): Last Assessment & Plan: Repeat colp Dysplasia of cervix, high grade MANPREET 2 09/05/2019 09/15/2024 HGSIL (high grade squamous i ntraepithelial lesion) on Pap smear of cervix 09/07/2018 5 Overview (09/15/2024): 06/2013 LGSIL 08/2013 Colpo biopsy benign >> LOST TO FOLLOW UP 03/2017 ASCUS, positive HRHPV >> LOST TO FOLLOW UP 03/2018 HGSIL, positive HRHPV after SAB >> LOST TO FOLLOW UP 09/07/18 HGSIL, positive HRHPV pap smear - repeated at IP visit 12/2018 OB colpo completed >>> Needs to return for colpo biopsy . Immunizations Immunization Administration Dates Next Due DTP 05/28/2007, 2,10/07/1988,1987,1987 Hepatitis A Pediatric (Havri x; Vaqta) 12mo to less than 19yo 11/10/1999,06/17/1999 Hepatitis B (Hvchhnl-V-Rqwhr , Recombivax HB-Adult) 19yo and older 05/07/1999,10/09/1998,08/01/1998 Influenza trivalent, with preservative (Fluzone; Afluria) 6mo and older 09/20/2013 MMR, measles mumps and rubel la Live (Priorix; M-M-R II) 12mo and older 10/09/1998,10/12/1988 OPV 02/07/1992, 9,01/08/1988,1986 PPD Test 09/20/2013,06/01/2013,08/18/2005 Rho (D) Immune Globulin 01/19/2025 Td Tetanus diptheria (Tdvax) 7yo and older 05/07/1999 Tdap Tetanus diptheria acell ular pertussis (Boostrix; Adacel) 7yo and older 01/19/2025,12/30/2018,06/01/2013 Varicella live (Varivax) 12m o and older 02/06/1991 Surgical History Surgery Date Site/Laterality Comments VAGINOSCOPY 2007 PROCEDURE: NV COLPOSCOPY CERVIX BX CERVIX & ENDOCRV CURRETAGE; COMMENT: not had followup since colpo CERVICAL BIOPSY W/ LOOP ELEC TRODE EXCISION BARIATRIC SURGERY 2021 Medical History Medical History Date Comments Abnormal Pap smear of cervix DX: Abnormal Pap smear of cervix Migraine Anemia Rh incompatibility Dysplasia of cervix, high grade MANPREET 2 09/05/2019 HGSIL (high grade squamous intraepithelial lesion) on Pap smear of cervix 09/07/201806/2013 LGSIL 08/2013 Colpo biopsy benign >> LOST TO FOLLOW UP 03/2017 ASCUS, positive HRHPV >> LOST TO FOLLOW UP 03/2018 HGSIL, positive HRHPV after SAB >> LOST TO FOLLOW UP 09/07/18 HGSIL, positive HRHPV pap smear - repeated at IP visit 12/2018 OB colpo completed >>> Needs to return for colpo biopsy . growth restriction antepartum 02/16/2025 02/16/2025 - EFW 5% AC 3%tile. NEW DEFINITION: FGR = AC<10% or EFW <10% Detailed US if <35 weeks and not previously done Growth US Q 2-4 weeks per MFM- 02/16/2025 per Marcello Tolliver BPP with dopplers in 1 week and growth in 2 weeks. Twice weekly testing- NST Umbilical artery Dopplers as indicated by [facility] Deliver at [facility] 38-39 6/7 weeks if isolated without comorbidity Transfer to [facility] with anastacio Family History Medical History Relation Name Comments [...] you may not have stable housing? No 03/02/2025 Food Access & Nutrition Answer Date Rec orded Do you have access to a vari ety of food including fruits and vegetables? Yes 03/02/2025 Access to Healthcare Answer Date Record ed Within the last 3 months, ho w many times did you visit the emergency department for your medical care? 0 03/02/2025 Health Literacy Answer Date Recorded How often do you need to hav e someone help you when you read instructions, pamphlets, or other written material from your doctor or pharmacy? Never 03/02/2025 Caregiver: How often do you need to have someone help you when you read instructions, pamphlets, or other written material from your doctor or pharmacy? Not on file 03/02/2025 Financial Risk Answer Date Recorded How hard is it for you to pa y for the very basics like food, housing, medical care, and air conditioning / heating? Not very hard 03/02/2025 Transportation Answer Date Recorded Has the lack of transportati on kept you from meetings, work, or from getting things needed for daily living? No Has the lack of transportati on kept you from medical appointments or from getting medications? No 03/02/2025 Social Isolation Answer Date Recorded How often do you feel lonely or isolated from th ose around you? Never 03/02/2025 Food Risk Answer Date Recorded Within the past 12 months we worried whether our food would run out before we got money to buy more. Never true 03/02/2025 Within the past 12 months th e food we bought just didn't last and we didn't have money to get more. Never true 03/02/2025 Dependent Care Answer Date Recorded Do you need help finding or paying for care for your loved ones. For example, children's ministry director or elderly care for an older adult? No 03/02/2025 Education Answer Date Recorded Do you think completing more education or training, like finishing a GED, going to college, or learning a trade, would be helpful for you? N/A 03/02/2025 Employment and Income Answer Date Recor ded During the last four weeks, have you been actively looking for work? No 03/02/2025 Living Situation Answer Date Recorded What is your living situation? 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 [employer] Not on file Not on file Not on file Obstetrics History Para Term AB IAB SAB Ectopic Multiple Livin g Live Births 5 5 5 0 0 0 5 5 Date Outcome GA Total Labor Labor/2nd/3rd Weight Sex Type Anes PTL Elise A1 A5 Name Clin 2002 Term F Vag-S pont Livin g Complications:None 2003 Term F Vag-S pont Livin g Complications:None 2007 Term M Vag-S pont Livin g Complications:None 2018 Term F Vag-S pont Livin g 2024 Term 37w 0d 0h 06m 0h 06m 1860 g (65.6 oz) F Vag-S pont Epidur al N Livin g 8 9 Ailani s Kiah chaudhari MD Complications:Intrauterine g rowth restriction (IUGR) affecting care of mother Delivery Location:[facility] ([facility]) Last Filed Vital Signs Vital Sign Reading Time Taken Comments Blood Pressure 120/72 05/03/2025 2:30 PM EDT Pulse 68 05/03/2025 2:30 PM EDT Temperature 36.7 C (98.1 F) 03/21/2025 8:33 AM EDT Respiratory Rate 14 05/03/2025 2:30 PM EDT Oxygen Saturation 100% 03/21/2025 8:33 AM EDT Inhaled Oxygen Concentration - - Weight 87.9 kg (193 lb 12.8 oz) 05/03/2025 2:30 PM EDT Height 162.6 cm (5' 4 ) 03/16/2025 11:1 4 PM EDT Body Mass Index 33.27 03/16/2025 11:14 PM EDT Plan of Treatment Health Maintenance Due Date Last Done Comments Hepatitis A Vaccines (2 of 2 - 2-dose series) 05/11/2000 11/10/1999, 06/17/1999 HPV Vaccines (1 - 3-dose SCDM series) 2014 Cholesterol Screening (Lipid Panel) 09/05/2024 COVID-19 Vaccine (3 - season) 2025 10/18/2020, 09/27/2020 Influenza Vaccine (#1) 2025 05/20/2017, 2013 Social Influencers of Health Screening 03/02/2026 03/02/2025 Cervical Cancer Screening: HPV 09/29/2029 09/29/2024, 06/09/2019 DTaP,Tdap,and Td Vaccines (10 - Td or Tdap) 01/19/2035 01/19/2025, 12/30/2018, 06/01/2013, Additional history exists RSV Immunization Adult Patients (1 - 1-dose 75+ series) 2062 Varicella Vaccines Aged Out 02/06/1991 No longer eligible based on patient's age to complete this topic IPV Vaccines Completed 02/07/1992, 08/1988, 01/08/1988, Additional history exists MMR Vaccines Completed 10/09/1998, 10/12/1988 Hepatitis B Vaccines Completed 05/07/1999, 10/09/1998, 08/01/1998 Depression Screening Completed 09/15/2024 Hepatitis C Screening Completed 09/28/2024 HIV Screening Completed 03/17/2025, 09/10, 09/02/2018 HIB Vaccines Aged Out No longer eligi ble based on patient's age to complete this topic Meningococcal ACWY Vaccine Aged Out N o longer eligible based on patient's age to complete this topic Meningococcal B Vaccine Aged Out No l onger eligible based on patient's age to complete this topic Pneumococcal Vaccine: Pediatrics (0 to 5 Years) and At-Risk Patients (6 to 49 Years) Aged Out No longer eligible based on patient's age to complete this topic RSV Immunization Patients Under 20 months Aged Out No longer eligible based on patient's age to complete this topic Procedures Procedure Name Priority Date/Time Associated Diagnosis Comments HIV 1, 2 ANTIBODY, P24 ANTIGEN WITH REFLEX TO DIFFERENTIATION Add-On 03/17/2025 12:04 AM EDT HPV WITH REFLEX GENOTYPE Routine 09/29/2024 9:36 AM EST Screening for malignant neoplasm of cervix HGSIL (high grade squamous intraepithelial lesion) on Pap smear of cervix HEPATITIS C ANTIBODY Routine 09/28/2024 3:18 PM EST Blood type, Rh negative Multigravida of advanced maternal age in first trimester Bariatric surgery status Obesity complicating childbirth care, subsequent in first trimester from Last 3 Months or Most Recently Relevant to Health Maintenance Results * HIV 1,2 antibody, p24 antigen with reflex to differentiation (03/17/2025 12:04 AM EDT) HIV Combo AB/AG Negative Negative LAB CHEMISTRY METHOD 03/17/2025 5:42 AM EDT [facility] Blood Venous blood specimen / Unknown Venipuncture / Unknown 03/17/2025 12:04 AM EDT 03/17/2025 12:14 AM EDT Narrative [facility] - 03/17/2025 5:42 AM EDT Nonreactive result does not rule out HIV infection. Sarah Lee MD LAB BLOOD ORDERABLES Final Res ult Performing Organization Address City/[facility]/ZIP Co de Phone Number [facility] [address] [place] [address], [place] [phone] * HPV with reflex genotype (09/29/2024 9:36 AM EST) HPV Negative Negative LAB MICROBIOLOGY METHOD 10/02/2024 3:[address] [facility] Broom Cervix uteri structure / Unknown 09/29/2024 9:36 AM EST 10/02/2024 6:20 AM EST Roe Morrison CNM LAB MOLECULAR DIAGNOSTICS ORD ERABLES Final Result [facility] [address] [place] [address], [place] [phone] * Hepatitis C antibody (09/28/2024 3:18 PM EST) Hepatitis C Antibody Negative Negative LAB CHEMISTRY METHOD 09/28/2024 7:[address] [facility] Blood Venous blood specimen / Unknown Venipuncture / Unknown 09/28/2024 3:18 PM EST 09/28/2024 3:18 PM EST Sydnee CHEEMA LAB BLOOD ORDERABLES Final Resu lt Performing Organization Address City/[facility]/ZIP Co de Phone Number [facility] [address] [place] [address], [place] [phone] from Last 3 Months or Most Recently Relevant to Health Maintenance Insurance [employer] [facility] Advance Directives * Full Code - Confirmed (Latest Code Status on File) Date Activated Date Inactivated Comments 03/16/2025 11:41 PM 03/21/2025 6:[address] [facility] was ascertained in the following way: Code status discussion: discussion with patient To update the patient's code status, place a code status order. Do not modify or discontinue any currently active code status orders. Care Teams Machine Gun Mechanic Relationship Specialty Start Date End Date Kary Viera MD [address] [facility] , [address] [facility] D/B/A: [facility] AMY Santoro PCP - General Internal Medicine 01/18/25
--- OUTSIDE RECORDS SUMMARY | 2025-08-06 18:05 | XMS_ITS ---
Author Name [facility] Organization Unknown Results Test Name/Text Value Interpretation Date Range Source Ovalocytes Bld Ql Smear Occasional 03/20/2025 [facility] Microcytes Present Present 03/20/2025 [facility] Platelets Giant Present Present 03/20/2025 - [facility] Hypochromia Present Present 03/20/2025 [facility] Polychromasia Present Occasional 03/20/2025 [facility] Hgb Bld-mCnc 7.0 g/dL Critically low 03/20/2025 12.5 - 16 C [facility] RBC # Bld Auto 3.8 M/mcL Below low normal 03/20/2025 4.2 - 5 .4 [facility] Eosinophil NFr Bld Auto 0.5 % 03/20/2025 0 - 6 [facility] Monocytes # Bld Auto 0.7 K/mcL 03/20/2025 0 - 0.8 [facility] Neutrophils NFr Bld Auto 76.2 % Above high normal 03/20/2025 44 - 74 [facility] MCHC RBC Auto-EntMCnc 30.7 g/dL Below low normal 03/20/2025 32 - 36 [facility] PMV Bld Auto 9.0 FL 03/20/2025 7.4 - 11.4 [facility] Basophils NFr Bld Auto 0.2 % 03/20/2025 0 - 2 [facility] Basophils # Bld Auto 0.0 K/mcL 03/20/2025 0 - 0.2 [facility] Lymphocytes # Bld Auto 1.5 K/mcL 03/20/2025 1 - 3.2 [facility] WBC # Bld Auto 9.3 K/mcL 03/20/2025 4 - 10.5 [facility] Monocytes NFr Bld Auto 7.3 % 03/20/2025 2 - 12 [facility] Hct VFr Bld Auto 22.8 % Critically low 03/20/2025 37 - 47 [facility] MCH RBC Qn Auto 18.4 pcg Below low normal 03/20/2025 25 - 3 3 [facility] RDW RBC Auto 19.8 % Above high normal 03/20/2025 12.1 - 16.2 [facility] Neutrophils # Bld Auto 7.1 K/mcL 03/20/2025 1.8 - 7.8 [facility] Lymphocytes NFr Bld Auto 15.8 % Below low normal 03/20/2025 20 - 48 [facility] RBC Auto 60.0 FL Below low normal 03/20/2025 78 - 100 [facility] Platelet # Bld Auto 196.0 K/mcL 03/20/2025 150 - 4 50 [facility] Eosinophil # Bld Auto 0.0 K/mcL 03/20/2025 0 - 0.5 [facility] Cell Scn Bld Ql Pari Negative 03/19/2025 [facility] RhoGam candidate 1 Vial 300 mcg 03/19/2025 [facility] Service Cmnt-Imp Clinical history noted. A placental weight of 289 g would be below 5th percentile for the given gestational age. Recommend clinical correlation. 03/23/2025 [facility] Glucose Bld-mCnc 109.0 mg/dL 03/18/2025 70 - 199 [facility] ABO Group Bld A 03/17/2025 [facility] Rh Bld Negative 03/17/2025 [facility] N Weak D Ag RBC Ql Negative 03/19/2025 CT [facility] RPR Ser Ql Nonreactive 03/17/2025 - [facility] HIV 1+2 Ab+HIV1 p24 Ag SerPl Ql IA Negative 03/17/2025 - [facility] ABO Group Bld A 03/17/2025 [facility] Bld gp Ab Scn SerPl Ql Negative 03/17/2025 [facility] Rh Bld Negative 03/17/2025 [facility] N Hct VFr Bld Auto 27.4 % Below low normal 03/17/2025 37 - 47 [facility] MCHC RBC Auto-EntMCnc 31.3 g/dL Below low normal 03/17/2025 32 - 36 [facility] Platelet # Bld Auto 266.0 K/mcL 03/17/2025 150 - 4 50 [facility] Hgb Bld-mCnc 8.6 g/dL Below low normal 03/17/2025 12.5 - 16 [facility] WBC # Bld Auto 10.5 K/mcL 03/17/2025 4 - 10.5 [facility] PMV Bld Auto 8.6 FL 03/17/2025 7.4 - 11.4 [facility] RDW RBC Auto 19.7 % Above high normal 03/17/2025 12.1 - 16.2 [facility] RBC Auto 59.2 FL Below low normal 03/17/2025 78 - 100 CT [facility] RBC # Bld Auto 4.63 M/mcL 03/17/2025 4.2 - 5.4 [facility] MCH RBC Qn Auto 18.5 pcg Below low normal 03/17/2025 25 - 3 3 [facility] History of Medication Use Medication Directions Dispensed Refills Start Date End Date Stat ibuprofen (ADVIL,MOTRIN) 200 mg tablet Take 1 tablet (200 mg total) by mouth every 6 (six) hours if needed (cramping) for up to 10 days. 03/21/2025 active ferric gluconate (FERRLECIT) 125 mg in sodium chloride 0.9 % 110 mL IVPB 125 mg, intravenous, at 110 mL/hr, Administer over 60 Minutes, Once, On Wed03/20/25 at 0930, For 1 dose 03/20/2025 completed senna-docusate (PERICOLACE) 8.6-50 mg per tablet 1 tablet 1 tablet, oral, Nightly, First dose on Wed03/19/25 at 2100, , Bowel Regimen - for prevention of constipation 03/20/2025 active ibuprofen (ADVIL,MOTRIN) tablet 200 mg 200 mg, oral, Every 6 hours PRN, cramping, Starting on Wed03/19/25 at 0931, For 48 hours, Administer with food or milk to decrease GI upset 03/19/2025 5 completed rho(D) immune globulin (RHOPHYLAC) injection 300 mcg 300 mcg, intramuscular, Once, On Wed03/19/25 at 1430, For 1 dose 03/19/2025 5 completed acetaminophen (TYLENOL) tablet 650 mg 650 mg, oral, Every 6 hours scheduled, First dose (after last modification) on Wed03/19/25 at 1200, , Offset by 3 hours with Ibuprofen 03/19/2025 active benzocaine-menthol- lanolin-aloe vera (DERMOPLAST) topical spray 1 g 1 g (1 spray), Topical, 4 times daily PRN, mild pain, irritation, Starting on Wed03/19/25 at 0726, , Apply to perineum. May be given concurrently with witch laurie-glycerin pads and oral pain medications. Hold can 6-12 inches away from affected area while applying. 03/19/2025 active bisacodyL (DULCOLAX) EC tablet 10 mg 10 mg, oral, Daily PRN, constipation, Starting on Wed03/19/25 at 0726, Administer PPD #1 or later if needed for bowel movement. Please notify resident physician if giving this medication. Do not crush, chew, or split. 03/19/2025 active calcium carbonate (TUMS) chewable tablet 1,000 mg 1,000 mg, oral, Every 4 hours PRN, heartburn, Starting on Wed03/19/25 at 0726, Ordered as calcium carbonate. 500 mg calcium carbonate = 200 mg elemental calcium. 03/19/2025 active dibucaine (NUPERCAINAL) 1 % ointment 1 Application 1 Application, rectal, Every 3 hours PRN, hemorrhoids, itching, Starting on Wed03/19/25 at 0726, 03/19/2025 active ferrous sulfate tablet 325 mg 325 mg, oral, Every other day, First dose on Wed03/19/25 at 0900, Take on an empty stomach with a full glass of water, at least 1 hour before or 2 hours after a meal. May be taken with food if causes an upset stomach. Avoid taking antacids or antibiotics within 2 hours before or after. Ordered as f 03/19/2025 active glycerin-witch Laurie pads 1 each 1 each, Topical, As needed, irritation, Starting on Wed03/19/25 at 0726, , Apply to perineum 03/19/2025 active polyethylene glycol (MIRALAX) packet 17 g 17 g, oral, Daily PRN, constipation, Starting on Wed03/19/25 at 0726, Bowel Regimen - for prevention of constipation Use second line for PRN constipation 03/19/2025 active oxytocin (PITOCIN) infusion 30 units/500 mL (premix) 42-333 adama-units/min (42-333 mL/hr), intravenous, Continuous PRN, Post Delivery, Starting on Wed03/19/25 at 0738, , Oxytocin 30 units/500 mL Normal Saline 1) Hour 1 recovery- 333 milliunits/minute for 1 hours (333 mL/hr) which equals 20 units oxytocin 2) Followed by- 42 milliunits 03/18/2025 5 active betamethasone acetate-betamethaso ne sodium phosphate (CELESTONE) injection 12 mg 12 mg, intramuscular, Once, On Wed03/17/25 at 2000, For 1 dose 03/18/2025 5 completed butorphanol (STADOL) 2 mg/mL injection - ADS Override Pull Starting on Wed03/18/25 at 0357, For 1 dose, Created by cabinet override 03/18/2025 5 completed dextrose 5 % lactated ringers infusion 125 mL/hr, intravenous, Continuous, Starting on 03/17/25 at 0100 03/17/2025 5 aborted lactated Ringer's bolus 1,000 mL 1,000 mL, intravenous, at 2,000 mL/hr, Administer over 30 Minutes, As needed, To reduce uterine activity, to promote oxygenation, Starting on Wed03/16/25 at 2340, For 2 doses, RUN WIDE OPEN Administer 500 mL, intravenous, Once as needed, to reduce uterine activity, For 1 dose, Pre-Delivery Ad 03/17/2025 5 aborted lactated Ringer's bolus 500 mL 500 mL, intravenous, at 500 mL/hr, Administer over 1 Hours, Once, On Wed03/18/25 at 2145, For 1 dose 03/17/2025 5 completed miSOPROStol (CYTOTEC) split tablet 25 mcg 25 mcg, vaginal, Every 3 hours PRN, IOL, Starting on Wed03/16/25 at 2347, HAZARDOUS Drug Precautions - Low Risk (Category A/NIOSH Group 3) Reproductive Risk Only: - Single pair of ASTM standard D6978 certified chemotherapy gloves - Eye protection (goggles or face shield) required only with a potenti 03/17/2025 active sodium chloride 0.9 % flush 10 mL [Order 1 Start] Name: Insert peripheral IV Signed Summary: Routine, Once, On Wed03/16/25 at 2341, For 1 occurrence [Order 1 End] [Order 2 Start] Name: Maintain IV access Signed Summary: Until discontinued, Starting on Wed03/16/25 at 2341, Until Specified [Order 2 End] [Order 3 Start] Name: Saline lock 03/17/2025 active ferrous gluconate (FERGON) 324 mg (38 mg iron) tablet Take 1 tablet (324 mg total) by mouth 1 (one) time each day. 11/24/2024 active aspirin 81 mg EC tablet Take 2 tablets (162 mg total) by mouth 1 (one) time each day. 09/29/2024 5 aborted vitamin iron fum-folic acid 27-0.8 mg per tablet 1 tablet 1 tablet, oral, Daily, First dose on Wed03/19/25 at 0900, 09/15/2024 active Problems Problem Status Onset Date Problem Type Date of Resoluti on Source H/O umbilical hernia repair active 2024-09-29 [facility]Act [facility] IUGR (intrauterine growth restriction) affecting care of mother, third trimester, fetus 1 active 2025-03-16 ProblemAct [facility] Obesity complicating childbirth active 2024-09-28 ProblemAct [facility] IUGR (intrauterine growth restriction) affecting care of mother active 2025-03-16 ProblemAct [facility] Supervision of other normal , antepartum active 2024-09-15 ProblemAct [facility] Vitamin D deficiency active 2013-06-05 ProblemAct [facility] Vitamin B12 deficiency active 2013-06-05 ProblemAct [facility] Multigravida of advanced maternal age in second trimester active 2024-09-15 ProblemAct [facility] Chronic back pain active 2024-09-28 ProblemAct [facility] Blood type, Rh negative active 2024-09-28 ProblemAct [facility] Bariatric surgery status active 2024-09-28 ProblemAct [facility] Anemia in , third trimester active 2024-09-28 ProblemAct [facility] Immunizations Vaccine Date Source Lot Number Status Rho (D) Immune Globulin 01/19/2025 [facility] [id number] ompleted Tdap Tetanus diptheria acell ular pertussis (Boostrix; Adacel) 7yo and older 01/19/2025 [facility] [id number] completed Tdap Tetanus diptheria acell ular pertussis (Boostrix; Adacel) 7yo and older 12/30/2018 [facility] [id number] completed Influenza trivalent, with pr eservative (Fluzone; Afluria) 6mo and older 09/20/2013 [facility] [id number] completed PPD Test 09/20/2013 [facility] [id number] completed PPD Test 06/01/2013 [facility] [id number] completed Tdap Tetanus diptheria acell ular pertussis (Boostrix; Adacel) 7yo and older 06/01/2013 [facility] [id number] completed DTP 05/28/2007 [facility] completed PPD Test 08/18/2005 [facility] completed Hepatitis A Pediatric (Havri x; Vaqta) 12mo to less than 19yo [facility] A Pediatric (Havri x; Vaqta) 12mo to less than 19yo 06/17/1999 [facility] Hepatitis A Pediatric (Havri x; Vaqta) 12mo to less than 19yo 06/17/1999 [facility] Hepatitis B (Txvwukl-N-Lzyzl , Recombivax HB-Adult) 19yo and older 05/07/1999 [facility] complet ed Td Tetanus diptheria (Tdvax) 7yo and older 05/07/1999 [facility] completed Hepatitis B (Ucliyaw-X-Ircuu , Recombivax HB-Adult) 19yo and older 10/09/1998 [facility] complet ed MMR, measles mumps and rubel la Live (Priorix; M-M-R II) 12mo and older 10/09/1998 [facility] completed Hepatitis B (Deqyezl-M-Jijsm , Recombivax HB-Adult) 19yo and older 08/01/1998 [facility] complet ed DTP 02/07/1992 [facility] completed OPV 02/07/1992 [facility] completed Varicella live (Varivax) 12mo and older 02/06/1991 [facility] completed MMR, measles mumps and rubel la Live (Priorix; M-M-R II) 12mo and older 10/12/1988 [facility] completed MMR, measles mumps and rubel la Live (Priorix; M-M-R II) 12mo and older 10/12/1988 [facility] completed DTP 10/07/1988 [facility] completed OPV 10/07/1988 [facility] completed OPV 01/08/1988 [facility] completed DTP 1987 [facility] completed DTP 1987 [facility] completed DTP 1987 [facility] completed OPV 1987 [facility] completed Encounters Encounter Type Encounter Reason Primary Diagnosis Location Date Inpatient Maternal care for other known or suspected poor growth, unspecified trimester, not applicable or unspecified Maternal care for other known or suspected poor growth, unspecified trimester, not applicable or unspecified [facility] [place] 03/16/2025 Care Team Organization Name Specialty Phone Email Start Date End Da te [facility] Kary Guajardo Primary Care 03/20/2025 [facility]hawnMaximiliano [facility] 03/17/2025
== END 2025-08-06 17:26 | disposition home or self-care (01) ==
LOC: HO.HMCH 16:49
PROVIDERS: PCP Internal Medicine; Visit Provider Internal Medicine
DX: L65.9 Nonscarring hair loss, unspecified (principal)

== ENCOUNTER → 2025-08-06 16:48 | Outpatient (BNVA) | payer OTHER, SELFPAY | PROVIDERS: PCP Internal Medicine; Visit Provider Internal Medicine | DX: L65.9 Nonscarring hair loss, unspecified (principal) | CPT/HCPCS: 96127; 99212 ==